=== PATIENT | female | born 1990 | race Caucasian/White ===

== ENCOUNTER 2018-06-24 10:40 | Outpatient (CLI) | payer BC, SELFPAY ==
[2018-06-24 11:52] LABS: Abs Immature Grans 0.01 k/cumm (0.0-0.09); Absolute Basophil Count 0.02 k/cumm (0.0-0.2); Absolute Eosinophil Count 0.09 k/cumm (0.0-0.7); Absolute Monocyte Count 0.53 k/cumm (0.11-0.7); Absolute Neutrophil Count 2.95 k/cumm (1.2-6.7); Basophils % 0.4; Eosinophils % 1.7; HCT 38.5 % (36.0-46.0); HGB 13.1 g/dL (12.0-15.5); Immature Grans % 0.2; Lymphocytes % 33.3; Mean Corpuscular Hemoglobin 31.4 pg (27.0-33.0); Mean Corpuscular Volume 92.3 fL (80-95); Mean Platelet Volume 10.8 fL (8.0-11.0); Monocytes % 9.8; Neutrophils % 54.6; Platelet Count 236 x1000/uL (130-400); RBC 4.17 m/cumm (4.00-5.20); RBC Distribution Width 12.8 % (11.7-14.6)
[2018-06-25 10:58] LABS: Rubella IgG Ab (UVM) Positive; Syphilis Serology (RPR) Negative (Negative)
[2018-06-25 12:01] LABS: HIV-1/2 Ag & Ab Screen Negative (NEGAT)
[2018-06-25 12:02] LABS: Hepatitis B Surface Ag Negative (NEGAT); Hepatitis C Ab w Rflx HCV PCR Negative (NEGAT)
== END 2018-06-24 10:41 ==
PROVIDERS: PCP Nurse Practitioner; Visit Provider Midwife
DX: Z34.01 Encounter for supervision of normal first pregnancy, first trimester (principal); Z11.59 Encounter for screening for other viral diseases; Z11.4 Encounter for screening for human immunodeficiency virus [HIV]
CPT/HCPCS: 36415; 80055; 86803; 86850; 86900; 86901; 87340; 87389; 84443; 85025; 86592; 86762

== ENCOUNTER 2018-06-24 13:00 | Outpatient (REF) | payer BC, SELFPAY ==
[2018-06-24 13:52] LABS: *AMPHETAMINES SCREEN URINE Negative (Negative); *BARBITURATES SCREEN URINE Negative (Negative); *BENZODIAZEPINES SCREEN URINE Negative (Negative); Cannabinoids THC Negative (Negative); Cocaine Screen,Urine Negative (Negative); METHADONE URINE SCREEN Negative (Negative); OPIATES URINE SCREEN Negative (Negative)
[2018-06-24 13:57] LABS: Tricyclic Antidepressants Negative (Negative)
[2018-06-25 14:38] LABS: Chlamydia Result Negative; GC Result Negative; Specimen Description CERVIX
[2018-06-28 15:40] LABS: Buprenorphine Negative; Norbuprenorphine Negative
== END 2018-06-24 13:01 ==
LOC: LBN 13:00
PROVIDERS: PCP Nurse Practitioner; Visit Provider Midwife
DX: Z34.01 Encounter for supervision of normal first pregnancy, first trimester (principal); Z11.3 Encounter for screening for infections with a predominantly sexual mode of transmission
CPT/HCPCS: 80307; 87491; 87591; 87086

== ENCOUNTER 2018-07-08 10:15 | Outpatient (CLI) | payer BC, SELFPAY ==
[2018-07-08 10:43] LABS: Kit/Specimen SENT
[2018-07-08 13:04] LABS: FREE T4 0.93 ng/dL (0.76-1.46)
== END 2018-07-08 10:16 ==
PROVIDERS: Midwife; PCP Nurse Practitioner; Visit Provider Advanced Practice Midwife
DX: Z34.01 Encounter for supervision of normal first pregnancy, first trimester (principal); Z36.89 Encounter for other specified antenatal screening
CPT/HCPCS: 36415; 84439

== ENCOUNTER 2018-07-09 04:22 | Emergency (ER) | payer BC, SELFPAY ==
[2018-07-09 04:27] VITALS: BP 139/83; PULSE 86; RESP 16; TEMP 37.1; O2SAT 100
--- NOTE | 2018-07-09 04:44 | ED.GENADUL ---
Disposition Clinical Impression: Vaginal bleeding during Disposition: HOME Condition: Stable Instructions: First Trimester Vaginal Bleed (ED) Additional Instructions: call your therapeutic strategy lead's office today to discuss when they want to follow up with you if you have difficulty breathing, fevers, severe abdominal pain return to the emergency department Medical Decision Making - Medical Decision Making Pt here with vaginal bleeding that is mild and not causing any evidence of hd instability, no tachycardia or symptoms to suggest anemia so do not feel cbc indicated. Has live iup, could be threated . 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 She denies fevers, chills, chest pain, sob, abd pain, n/v. She has a live iup on bedside abdominal u/s with fhr of 140. Complaint: vaginal bleeding Onset/Timin -: hour(s) Improves with: none Worsens with: none - Related Data Cholecalciferol (Vitamin D3) [Vitamin D3] 1,000 unit PO DAILY 01/22/18 Docosahexanoic Acid [Dha] 100 mg PO DAILY 01/22/18 Multivitamins W-Ca,Fe [Prenavite] 1 each PO DAILY 01/22/18 Levothyroxine [Levothroid] 50 mcg PO DAILY 30 Days #30 tab-cap 06/26/18 Allergies Allergy/AdvReac Type Severity Reaction Status Date / Time No Known Drug Allergies Allergy Unverified 06/24/18 09:08 Review of Systems Constitutional: denies: fever Respiratory: denies: shortness of breath Cardiovascular: denies: chest pain Musculoskeletal: denies: back pain Skin: denies: rash Comment: All other systems reviewed and negative Past Medical History - Past Medical History Medical history: no medical history - Social History Alcohol use: none Drug use: none General Exam - General Limitations: no limitations General appearance: alert, in no apparent distress - Head Head exam: Present: atraumatic - Eye Eye exam: Present: normal apperance - ENT ENT exam: Present: mucous membranes moist - Neck Neck exam: Present: normal inspection - Respiratory Respiratory exam: Absent: respiratory distress - Cardiovascular Cardiovascular Exam: Present: regular rate - GI/Abdominal GI/Abdominal exam: Present: soft. Absent: tenderness - Extremities Exam Extremities exam: Present: normal inspection - Back Exam Back exam: Present: normal inspection - Neurological Exam Neurological exam: Present: alert, oriented X3 - Psychiatric Psychiatric exam: Present: normal affect - Skin Skin exam: Present: warm Course Vital Signs - 24 hr 07/09/18 04:27 Temperature 98.8 F Pulse 86 Respiratory 16 Rate Blood Pressure 139/83 Pulse Oximetry 100
--- NOTE | 2018-07-09 04:47 | ED.GENADUL_ITS ---
Disposition Clinical Impression: Vaginal bleeding during Disposition: HOME Condition: Stable Instructions: First Trimester Vaginal Bleed (ED) Additional Instructions: call your conservation assistant's office today to discuss when they want to follow up with you if you have difficulty breathing, fevers, severe abdominal pain return to the emergency department Medical Decision Making - Medical Decision Making Pt here with vaginal bleeding that is mild and not causing any evidence of hd instability, no tachycardia or symptoms to suggest anemia so do not feel cbc indicated. Has live iup, could be threated . 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 She denies fevers, chills, chest pain, sob, abd pain , n/v. She has a live iup on bedside abdominal u/s with fhr of 140. Complaint: vaginal bleeding Onset/Timin -: hour(s) Improves with: none Worsens with: none - Related Data Cholecalciferol (Vitamin D3) [Vitamin D3] 1,000 unit PO DAILY 01/22/18 Docosahexanoic Acid [Dha] 100 mg PO DAILY 01/22/18 Multivitamins W-Ca,Fe [Prenavite] 1 each PO DAILY 01/22/18 Levothyroxine [Levothroid] 50 mcg PO DAILY 30 Days #30 tab-cap 06/26/18 Allergies Allergy/AdvReac Type Severity Reaction Status Date / Time No Known Drug Allergies Allergy Unverified 06/24/18 09:08 Review of Systems Constitutional: denies: fever Respiratory: denies: shortness of breath Cardiovascular: denies: chest pain Musculoskeletal: denies: back pain Skin: denies: rash Comment: All other systems reviewed and negative Past Medical History - Past Medical History Medical history: no medical history - Social History Alcohol use: none Drug use: none General Exam - General Limitations: no limitations General appearance: alert, in no apparent distress - Head Head exam: Present: atraumatic - Eye Eye exam: Present: normal apperance - ENT ENT exam: Present: mucous membranes moist - Neck Neck exam: Present: normal inspection - Respiratory Respiratory exam: Absent: respiratory distress - Cardiovascular Cardiovascular Exam: Present: regular rate - GI/Abdominal GI/Abdominal exam: Present: soft. Absent: tenderness - Extremities Exam Extremities exam: Present: normal inspection - Back Exam Back exam: Present: normal inspection - Neurological Exam Neurological exam: Present: alert, oriented X3 - Psychiatric Psychiatric exam: Present: normal affect - Skin Skin exam: Present: warm Course Vital Signs - 24 hr 07/09/18 04:27 Temperature 98.8 F Pulse 86 Respiratory 16 Rate Blood Pressure 139/83 Pulse Oximetry 100
[2018-07-09 05:52] VITALS: BP 118/72; PULSE 70; RESP 16; TEMP 37.2; O2SAT 99
== END 2018-07-09 06:04 | disposition home or self-care (01) ==
PROVIDERS: Emergency Provider Emergency Medicine; PCP Nurse Practitioner
DX: O20.9 Hemorrhage in early pregnancy, unspecified (principal); Z3A.11 11 weeks gestation of pregnancy
CPT/HCPCS: 86850; 90384; 96372; 99284; J2790

== ENCOUNTER 2018-07-09 13:39 | Outpatient (CLI) | payer BC, SELFPAY ==
--- NOTE | 2018-07-09 13:38 | DI.REPORT_ITS ---
SYMPTOMS/DIAGNOSIS: VAGINAL BLEEDING, O46.90, PRIMIGRAVIDA 1ST TRIMESTER, Z34.01, ? PREVIA, ? ABRUPTION OBSTETRICAL ULTRASOUND: Many abnormalities cannot be diagnosed. A normal exam does not exclude a congenital anomaly. Radiology No. [id number] LMP: Exam Date: 07/09/18 [facility] wks days on EDC ([facility]) 01/23/19 Confirmed: HISTORY: ---- PREDICTED GESTATIONAL AGE NUMBER 11+5 weeks with a range of week to weeks. 1 Determined by___1STUS___LMP_X__HISTORY PLACENTA PRESENTATION Grade 0 Cephalic___ Anterior_X__Posterior___ Breech____ Right Left__X Transverse(head right___ Fundal___Low-lying___Previa_X__ Transverse(head left___ Varying__X____ BIOMETRY AMNIOTIC FLUID BPD: mm weeks Normal HC: mm weeks AC: mm weeks FL: mm weeks AMNIOTIC FLUID INDEX >26 WK CRL: 54 mm 12+0 weeks Cisterna Magna: mm CI: RUQ: LUQ Cerebellum: cm EFW: grams Percentile RLQ: LLQ Total: cms Composite AGE= 12+0 wks EDC by US: 01/21/19 BIOPHYSICAL PROFILE ANATOMY IDENTIFIED SCORE 0/2 Heart: 4-Chamber___Rate:BPM 160 LVOT: RVOT: Amniotic Fluid(>2cms)____ Stomach: Kidneys: Respirations (>30 secs) Bladder: Post. Fossa: Body Flex/Extension 3 vessel cord: Ventricles: cord insertion: Lips:____ Extremity Flex/Extension spinal morphology: Nose: Total Score= Palate: NS=not seen COMMENTS: There is a single living intrauterine gestation. Estimated sonographic age is 12 weeks. heart rate is 160 beats per minute. The placenta appears anterior and appears to lie at the margins of the internal os. There does not appear to be a complete previa. There are no findings of hemorrhage. IMPRESSION: Single living intrauterine gestation. Estimated sonographic age is 12 weeks. There does appear to be a marginal placental location. Evaluation of the placental location should be considered at the patient's second trimester ultrasound. The findings were discussed with Lin Wiggins on the date of the examination.
== END 2018-07-09 13:40 ==
PROVIDERS: PCP Nurse Practitioner; Visit Provider Advanced Practice Midwife
DX: O46.91 Antepartum hemorrhage, unspecified, first trimester (principal); Z34.01 Encounter for supervision of normal first pregnancy, first trimester
CPT/HCPCS: 76817

== ENCOUNTER 2018-08-26 00:35 | Outpatient (CLI) | payer BC, SELFPAY ==
--- NOTE | 2018-08-26 10:00 | DI.US_ITS ---
SYMPTOMS/DIAGNOSIS: SURVEY, , Z34.90 OB ULTRASOUND: OB ultrasound was performed utilizing second trimester protocol. There is a single fetus. biometry is consistent with a gestational age of 18 weeks 5 days and an EDC of 01/22/19. The placenta is anterior and low lying but there is no placenta previa. The lower margin of the placenta is about 1.3 cm from the internal os. No placental abnormality seen. The anomaly screen is within normal limits as per the attached checklist. There is a normal quantity of amniotic fluid. Many abnormalities cannot be diagnosed. A normal exam does not exclude a congenital anomaly. Radiology No. [id number] LMP: Exam Date: 08/26/18 [facility] wks days on EDC ([facility]) Confirmed: HISTORY: survey ---- PREDICTED GESTATIONAL AGE NUMBER 18+4 weeks with a range of 17+4 weeks to 19+4 weeks. 1 Determined by 1STUS X LMP___HISTORY Info. pertaining to fetus # PLACENTA PRESENTATION Grade I Cephalic___ Anterior X Posterior___ Breech X Right Left Transverse(head right___ Fundal___Low-lying X Previa___ Transverse(head left___ Varying BIOMETRY AMNIOTIC FLUID BPD: 42 mm 18+5 weeks Normal HC: 159 mm 18+5 weeks AC: 134 mm 18+6 weeks FL: 28 mm 18+4 weeks AMNIOTIC FLUID INDEX >26 WK CRL: mm weeks Cisterna Magna: 2.4 mm CI: 79 RUQ: LUQ Cerebellum: 1.85 cm EFW: 255 grams Percentile 56% RLQ: LLQ 0#, 9oz Total: cms Composite AGE= 18+5 wks EDC by US 01/22/19 BIOPHYSICAL PROFILE ANATOMY IDENTIFIED SCORE 0/2 Heart: 4-Chamber X Rate: 153 BPM LVOT: X RVOT: X Amniotic Fluid(>2cms)____ Stomach: X Kidneys: X Respirations (>30 secs) Bladder: X Post. Fossa: X Body Flex/Extension 3 vessel cord: X Ventricles: X cord insertion: X Lips: X Extremity Flex/Extension spinal morphology: X Nose: X Total Score= Palate: X NS=not seen
[2018-08-26 14:57] LABS: TSH (W/Ref FT4) 3.24 uIU/mL (0.358-3.74)
== END 2018-08-26 00:55 ==
PROVIDERS: Advanced Practice Midwife; PCP Nurse Practitioner; Visit Provider Advanced Practice Midwife
DX: Z34.92 Encounter for supervision of normal pregnancy, unspecified, second trimester (principal)
CPT/HCPCS: 76805; 84443

== ENCOUNTER 2018-10-21 07:43 | Outpatient (CLI) | payer BC, SELFPAY ==
[2018-10-21 08:14] LABS: HCT 37.7 % (36.0-46.0); HGB 13.2 g/dL (12.0-15.5); Mean Corpuscular Volume 91.5 fL (80-95); Mean Platelet Volume 10.9 fL (8.0-11.0); Platelet Count 222 x1000/uL (130-400); RBC 4.12 m/cumm (4.00-5.20); RBC Distribution Width 12.1 % (11.7-14.6); White Blood Cell Count 7.38 k/cumm (4.4-10.8)
[2018-10-21 08:16] LABS: Glucose,1 Hr (Glucola) 132 mg/dL (80-140)
[2018-10-21 09:02] LABS: TSH (W/Ref FT4) 1.69 uIU/mL (0.358-3.74)
== END 2018-10-21 08:03 ==
PROVIDERS: Nurse Practitioner; PCP Nurse Practitioner; Visit Provider Advanced Practice Midwife
DX: Z34.93 Encounter for supervision of normal pregnancy, unspecified, third trimester (principal); Z01.84 Encounter for antibody response examination
CPT/HCPCS: 36415; 82950; 85027; 86850; 90384; 84443

== ENCOUNTER 2018-11-18 00:14 | Outpatient (CLI) | payer BC, SELFPAY ==
--- NOTE | 2018-11-18 10:57 | DI.US_ITS ---
Many abnormalities cannot be diagnosed. A normal exam does not exclude a congenital anomaly. Radiology No. LMP: Exam Date: 11/18/18 [facility] wks days on EDC ([facility]) 01/22/19 Confirmed: HISTORY: PLACENTAL LOCATION, F/U LOW LYING PLACENTA, Z34.90 PREDICTED GESTATIONAL AGE NUMBER 30.4 weeks with a range of week to weeks. 1 Determined by_X__1STUS___LMP___HISTORY Info. pertaining to fetus # PLACENTA PRESENTATION Grade I Cephalic__X_ Anterior__X_Posterior___ Breech____ Right Left Transverse(head right___ Fundal___Low-lying___Previa___ Transverse(head left___ Varying BIOMETRY AMNIOTIC FLUID BPD: mm weeks Normal HC: mm weeks Oligo Polyhydramnios AC: mm weeks FL: mm weeks AMNIOTIC FLUID INDEX >26 WK CRL: mm weeks Cisterna Magna: mm CI: RUQ: LUQ Cerebellum: cm EFW: grams Percentile RLQ: LLQ Total: cms Composite AGE= wks EDC by US BIOPHYSICAL PROFILE ANATOMY IDENTIFIED SCORE 0/2 Heart: 4-Chamber___Rate:BPM___135__ LVOT: RVOT: Amniotic Fluid(>2cms)____ Stomach: Kidneys: Respirations (>30 secs) Bladder: Post. Fossa: Body Flex/Extension 3 vessel cord: Ventricles: cord insertion: Lips:____ Extremity Flex/Extension spinal morphology: Nose: Total Score= Palate: NS=not seen Comparison is made with 08/26/18. There is a single intrauterine gestation in the cephalic presentation. heart rate is 135 beats per minute. dating and anatomy were not performed during this examination. The placenta is anterior without evidence of previa. The placenta tip is greater than 7.5 cm. from the internal os. IMPRESSION: No evidence of placenta previa or low lying placenta.
== END 2018-11-18 00:34 ==
PROVIDERS: PCP Nurse Practitioner; Visit Provider Advanced Practice Midwife
DX: Z34.93 Encounter for supervision of normal pregnancy, unspecified, third trimester (principal)
CPT/HCPCS: 76815

== ENCOUNTER 2018-11-24 16:20 | Observation (INO) | payer BC, SELFPAY ==
--- NOTE | 2018-11-24 18:35 | DI.US_ITS ---
SYMPTOM/DIAGNOSIS: DECREASED MOVEMENT. OB ULTRASOUND: Comparison is made with 18 Nov 2018. The fetus is in breech position. The biometric measurements correspond to 28 weeks, 2 days which is below the lower limit of normal. The estimated weight is 1117 grams which is below the lower limit of normal, below the first percentile. Amniotic fluid index appears normal at 8.3 The biometric physical profile is 6 of 8. No body movements were identified. Umbilical artery Doppler was performed. PS/ED 57/20 PI 2.34 SD ratio 2.89 RI 0.65. This is within the normal range. IMPRESSION: size and weight are below the normal range. Biophysical profile is 6 out of 8. Many abnormalities cannot be diagnosed. A normal exam does not exclude a congenital anomaly. Radiology No. [id number] LMP: Exam Date: 11/24/2018 [facility] wks days on EDC ([facility]) 01/22/19 Confirmed: HISTORY: BIOPHYSICAL PROFILE DECREASED MOVEMENT AND EFW. PREDICTED GESTATIONAL AGE NUMBER 31 +4 weeks with a range of 30 +4 week to 32 +4 weeks. 1 Determined by XX___1STUS___LMP___HISTORY Info. pertaining to fetus # PLACENTA PRESENTATION Grade II Cephalic___ Anterior__X_Posterior___ Breech__X__ Right Left Transverse(head right___ Fundal___Low-lying X___Previa___ Transverse(head left___ Varying BIOMETRY AMNIOTIC FLUID BPD: 71 mm 28 +4 weeks Normal HC: 267 mm 29 weeks AC: 222 mm 26 +5 weeks FL: 54 mm 28 +5 weeks AMNIOTIC FLUID INDEX >26 WK CRL: -- mm -- weeks Cisterna Magna: -- mm CI: 80 RUQ:_3.4 LUQ____0.9____ Cerebellum: -- cm EFW: 1117 grams <1% Percentile RLQ:__1.3____LLQ__2.6 Total:___8.3__cms Composite AGE= 28 +2 wks EDC by US__02/14/19 BIOPHYSICAL PROFILE ANATOMY IDENTIFIED SCORE 0/2 Heart: 4-Chamber___Rate:BPM LVOT: RVOT: Amniotic Fluid(>2cms)____2/2 Stomach: Kidneys: Respirations (>30 secs)___2/2__ Bladder: Post. Fossa: Body Flex/Extension__0/2____ 3 vessel cord: Ventricles: cord insertion: Lips:____ Extremity Flex/Extension_ 2/3 spinal morphology: Nose: Total Score= 6/8 Palate: NS=not seen
[2018-11-24] MEDS: Betamet Acet/Betamet Na Ph Inj. 30 MG/5 ML 12 MG IM (20:00)
== END 2018-11-24 20:15 | disposition home or self-care (01) ==
LOC: OBS 18:27
PROVIDERS: Admitting Provider Nurse Practitioner; PCP Nurse Practitioner; Visit Provider Nurse Practitioner
DX: O60.03 Preterm labor without delivery, third trimester (principal); Z3A.31 31 weeks gestation of pregnancy
CPT/HCPCS: 76815; 59025; 76819; G0378; J0702

== ENCOUNTER 2018-11-25 09:07 | Outpatient (CLI) | payer BC, SELFPAY ==
[2018-11-25] MEDS: Betamet Acet/Betamet Na Ph Inj. 30 MG/5 ML 12 MG IM (19:14)
== END 2018-11-25 09:27 ==
PROVIDERS: PCP Nurse Practitioner; Visit Provider Obstetrics & Gynecology
DX: O60.03 Preterm labor without delivery, third trimester (principal); Z3A.31 31 weeks gestation of pregnancy
CPT/HCPCS: 96372; J0702

== ENCOUNTER 2018-11-27 07:14 | Outpatient (CLI) | payer BC, SELFPAY ==
--- NOTE | 2018-11-27 11:08 | W.PM.HP.N ---
Date of service: 11/27/18 Time of Service: 11:08 Assessment and Plan (1) IUGR (intrauterine growth restriction): Current visit: Yes Status: Acute (2) Abnormal heart rate complicating : Current visit: Yes Status: Acute The tracing displayed minimal variability with periodic spontaneous decelerations. BPP returned 04/21. I [place] [facility] [place]. The patient has been counseled on the need for transport and consent was obtained. All questions were answered. She is s/p betamethasone x 2 on 11/24 and 11/25. History of Present Illness Chief Complaint: IUGR with non-reassuring NST Narrative: 28 year old @ 30.6 weeks presents for NST. She is known to have IUGR and did have normal dopplers over the weekend. She did received betamethasone at that time as well with doses on 11/24 and 11/25. Today her NST was non reactive with occassional spontaneous decelerations. BPP returned 04/21 today. NILAY was 7. The patient's medical history is significant for hypothyroidism for which she takes synthroid. She is otherwise healthy with no other medical problems. 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 pets and animals: Yes Smoking/Tobacco Use Status: Never alcohol intake: current alcohol intake frequency: holidays/special occasions only substance use type: does not use special geno needs: No seatbelt use: always helmet use: Yes drive intox or ride w/ intox 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 water heater temp set < 120 deg: Yes working smoke detector in home: Yes fire extinguisher in home: Yes carbon monox detector in home: Yes firearms in home: Yes firearms unloaded and locked: Yes do you feel safe at home: Yes victim of physical abuse: No victim of emotional abuse: No victim of sexual abuse: No History History 1 Para 0 Hx # Term Pregnancies 0 Multiple births 0 Hx # Pregnancies 0 Ectopic pregnancies 0 AB induced 0 Hx Number of Living Children 0 AB spontaneous 0 Meds Home Medications Medication Instructions Recorded Confirmed Type PNV cmb#95-ferrous fumarate-FA 1 ea PO DAILY 01/22/18 11/21/18 History [] cholecalciferol (vitamin D3) 1,000 unit PO DAILY 01/22/18 11/21/18 History [Vitamin D3] docosahexanoic acid 100 mg PO DAILY 01/22/18 11/21/18 History levothyroxine 75 mcg tablet 75 mcg PO DAILY #30 tab 11/06/18 11/21/18 Rx Allergies Allergy/AdvReac Type Severity Reaction Status Date / Time No Known Drug Allergies Allergy Unverified 11/21/18 10:40
--- NOTE | 2018-11-27 11:15 | HPE_ITS ---
Date of service: 11/27/18 Time of Service: 11:08 Assessment and Plan (1) IUGR (intrauterine growth restriction): Current visit: Yes Status: Acute (2) Abnormal heart rate complicating : Current visit: Yes Status: Acute The tracing displayed minimal variability with periodic spontaneous decelerations. BPP returned 04/21. I spoke with Dr. Lawton [place] [facility] [place] accepted the patient in transfer. The patient has been counseled on the need for transport and consent was obtained. All questions were answered. She is s/p betamethasone x 2 on 11/24 and 11/25. History of Present Illness Chief Complaint: IUGR with non-reassuring NST Narrative: 28 year old @ 30.6 weeks presents for NST. She is known to have IUGR and did have normal dopplers over the weekend. She did received betamethasone at that time as well with doses on 11/24 and 11/25. Today her NST was non reactive with occassional spontaneous decelerations. BPP returned 04/21 today. NILAY was 7. The patient's medical history is significant for hypothyroidism for which she takes synthroid. She is otherwise healthy with no other medical problems. 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 pets and animals: Yes Smoking/Tobacco Use Status: Never alcohol intake: current alcohol intake frequency: holidays/special occasions only substance use type: does not use special geno needs: No seatbelt use: always helmet use: Yes drive intox or ride w/ intox 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: No water heater temp set < 120 deg: Yes working smoke detector in home: Yes fire extinguisher in home: Yes carbon monox detector in home: Yes firearms in home: Yes firearms unloaded and locked: Yes do you feel safe at home: Yes victim of physical abuse: No victim of emotional abuse: No victim of sexual abuse: No History History 1 Para 0 Hx # Term Pregnancies 0 Multiple births 0 Hx # Pregnancies 0 Ectopic pregnancies 0 AB induced 0 Hx Number of Living Children 0 AB spontaneous 0 Meds Home Medications Medication Instructions Recorded Confirmed Type PNV cmb#95-ferrous fumarate-FA 1 ea PO DAILY 01/22/18 11/21/18 History [] cholecalciferol (vitamin D3) 1,000 unit PO DAILY 01/22/18 11/21/18 History [Vitamin D3] docosahexanoic acid 100 mg PO DAILY 01/22/18 11/21/18 History levothyroxine 75 mcg tablet 75 mcg PO DAILY #30 tab 11/06/18 11/21/18 Rx Allergies Allergy/AdvReac Type Severity Reaction Status Date / Time No Known Drug Allergies Allergy Unverified 11/21/18 10:40
== END 2018-11-27 11:28 | disposition short-term general hospital (02) ==
LOC: BCD 07:18
PROVIDERS: PCP Nurse Practitioner; Visit Provider Advanced Practice Midwife
DX: O36.5930 Maternal care for other known or suspected poor fetal growth, third trimester, not applicable or unspecified (principal); O41.03X0 Oligohydramnios, third trimester, not applicable or unspecified; Z3A.31 31 weeks gestation of pregnancy
CPT/HCPCS: 99223; 59025; 76819; G0378

== ENCOUNTER 2019-01-21 15:01 | Outpatient (REF) | payer BC, SELFPAY ==
--- NOTE | 2019-01-21 11:15 | PAPFT_PTH ---
PATIENT: Asha Ospina LOC: [facility] U#:[id number] AGE/SX: 28/F ROOM: RE01/21/[address]: Bneedicto Price RN : 1990 BED: DIS: 01/21/2019 SPEC #: [id number] RECD: 01/21/19 17:41 STATUS: BORIS REDwayne #: [id number] HAYLEY: 01/21/19 11:[address]: Benedicto Price DEPT: [facility] Cytology RECD BY: Sandy Alarcon ENTERED: 01/21/19 17:42 SP TYPE: PAPFT OTHR DR: Susan Alvarez Tissues: 1 - CX/ENDOCX FOR PAP SMEARS Procedures: PAP THIN PREP/UVM Screening HPV DNA PROBE Comments: [id number]
== END 2019-01-21 15:21 ==
LOC: LBN 15:01
PROVIDERS: PCP Nurse Practitioner; Visit Provider Advanced Practice Midwife
DX: Z12.4 Encounter for screening for malignant neoplasm of cervix (principal); Z11.51 Encounter for screening for human papillomavirus (HPV)
CPT/HCPCS: 88142; 87624

== ENCOUNTER 2019-10-16 10:03 | Outpatient (REF) | payer BC, SELFPAY ==
[2019-10-16 21:56] LABS: HCT 40.6 % (36.0-46.0); HGB 13.9 g/dL (12.0-15.5); Mean Corp. HGB Concentration 34.2 g/dL (32.0-36.0); Mean Corpuscular Hemoglobin 31.2 pg (27.0-33.0); Mean Corpuscular Volume 91.2 fL (80-95); Mean Platelet Volume 10.6 fL (8.0-11.0); Platelet Count 327 x1000/uL (130-400); RBC 4.45 m/cumm (4.00-5.20); RBC Distribution Width 12.4 % (11.7-14.6); White Blood Cell Count 7.01 k/cumm (4.4-10.8)
[2019-10-16 22:13] LABS: TSH (W/Ref FT4) 1.78 uIU/mL (0.36-3.74)
[2019-10-20 12:33] LABS: Thyroperoxidase Antibody >1300 U/mL (<=60)
== END 2019-10-16 10:23 ==
LOC: NCHCN 10:03
PROVIDERS: PCP Nurse Practitioner; Visit Provider Nurse Practitioner Family
DX: E03.9 Hypothyroidism, unspecified (principal)
CPT/HCPCS: 85027; 86376; 84443

== ENCOUNTER 2020-07-15 16:59 | Outpatient (REF) | payer BC, SELFPAY ==
[2020-07-15 21:21] LABS: TSH (W/Ref FT4) 1.84 uIU/mL (0.36-3.74)
== END 2020-07-15 17:19 ==
LOC: NCHCN 16:59
PROVIDERS: PCP Nurse Practitioner; Visit Provider Nurse Practitioner Family
DX: E03.9 Hypothyroidism, unspecified (principal)
CPT/HCPCS: 84443

== ENCOUNTER 2020-07-22 02:26 | Outpatient (CLI) | payer BC, SELFPAY ==
--- NOTE | 2020-07-22 | DI.US_ITS ---
EXAM: US BREAST LT LIMITED AND US BREAST RT LIMITED CLINICAL HISTORY: LT BREAST LUMP, N63.20, RT BREAST LUMP, N63.10 TECHNIQUE: Ultrasound left and right breast performed using standard protocol. FINDINGS: No solid or cystic masses, hypoechoic foci, areas of abnormal shadowing, or areas of skin thickening. IMPRESSION: No sonographically suspicious finding. A negative report should not preclude further investigation of a clinically suspicious palpable abnor mality. BI-RADS Cat 1 - Negative DATA REPOSITORY:
== END 2020-07-22 02:46 ==
PROVIDERS: PCP Nurse Practitioner Family; Visit Provider Nurse Practitioner Family
DX: N63.20 Unspecified lump in the left breast, unspecified quadrant (principal); N63.10 Unspecified lump in the right breast, unspecified quadrant
CPT/HCPCS: 76642

== ENCOUNTER 2020-08-11 10:35 | Outpatient (REF) | payer BC, SELFPAY ==
--- NOTE | 2020-08-11 08:45 | SKI_PTH ---
PATIENT: Asha Ospina LOC: [facility] U#:[id number] AGE/SX: 30/F ROOM: RE08/11/[address]: Ana Cortes : 1990 BED: DIS: 08/11/2020 SPEC #: [id number] RECD: 08/12/20 12:21 STATUS: BORIS RE #: [id number] HAYLEY: 08/11/20 08:[address]: Ana Cortes DEPT: Surgical Specimen RECD BY: Sandy Alarcon Tissues: 1 - SKIN BIOPSY(SHAVE/PUNCH) 2 - SKIN BIOPSY(SHAVE/PUNCH) Procedures: GROSS AND MICRO LEVEL 3 SKIN LEVEL 4 Comments: [id number]
== END 2020-08-11 10:55 ==
LOC: NCHCN 10:35
PROVIDERS: PCP Nurse Practitioner Family; Visit Provider Nurse Practitioner Family
DX: D22.61 Melanocytic nevi of right upper limb, including shoulder (principal); D22.5 Melanocytic nevi of trunk
CPT/HCPCS: 88304; 88305

== ENCOUNTER 2021-09-22 02:28 | Outpatient (CLI) | payer BC, SELFPAY ==
[2021-09-22 14:18] LABS: FREE T4 1.27 ng/dL (0.76-1.46); TSH 1.12 uIU/mL (0.36-3.74)
== END 2021-09-22 02:29 | disposition home or self-care (01) ==
LOC: LBO 02:28
PROVIDERS: PCP Nurse Practitioner Family; Visit Provider Internal Medicine Endocrinology, Diabetes & Metabolism
DX: E03.8 Other specified hypothyroidism (principal); E06.3 Autoimmune thyroiditis
CPT/HCPCS: 36415; 84439; 84443

== ENCOUNTER 2022-07-19 09:53 | Emergency (ER) | payer BC, SELFPAY ==
[2022-07-19 10:01] VITALS: BP 126/83; PULSE 90; RESP 16; TEMP 36.6; O2SAT 100
--- NOTE | 2022-07-19 10:15 | DI.RAD_ITS ---
Exam(s) XR FOOT RT COMPLETE EXAM: XR FOOT RT COMPLETE CLINICAL HISTORY: pain, direct trauma 500lb. TECHNIQUE: 2D digital imaging was performed of the right foot. Three images were obtained. AP, obl ique and lateral views were obtained. COMPARISON: No exams were available for comparison FINDINGS: BONES: There is an acute oblique fracture through the distal 3rd of the 1st metatarsal. There is ove rriding of the fracture fragments. There is a transverse fracture through the midshaft of the 2nd me tatarsal. There is 1/2 shaft's with displacement posteriorly of the distal fracture fragment. There is a nondisplaced fracture through the midshaft of the 3rd metatarsal. No bony destructive lesion i s seen. JOINTS: No dislocation present. SOFT TISSUE: There is soft tissue swelling of the foot. IMPRESSION: Acute fractures involving the 1st, 2nd and 3rd metatarsals as described with associated soft tissue s welling. DATA REPOSITORY: RADIATION DOSE DELIVERED:
--- NOTE | 2022-07-19 10:23 | ED.GENADUL_ITS ---
Discharge Plan Disposition Patient Disposition: HOME Condition: Serious Discharge Details Clinical Impression: Fracture of foot bone, right, closed Primary Care Provider: Ana Cortes ED Provider: Pa Wilde Home Meds and New Rx's Prescriptions: Continued cholecalciferol (vitamin D3) [Vitamin D3] 1,000 UNIT capsule 1,000 unit PO DAILY levothyroxine 75 mcg tablet 75 mcg PO DAILY Qty: 30 6RF No Action hydrocodone-acetaminophen 5-325 mg tablet 1 tab PO Q8H MDD 3 tabs PRN (Reason: pain) Qty: 10 0RF Discharge Instructions Instructions: Foot Fracture in Adults (ED) Additional Instructions: Please take acetaminophen (tylenol) - 650mg every 6 hours by mouth as needed for pain. Please take ibuprofen over the counter. Take 600mg by mouth every 6 hours as needed for pain. Please use orthopedic boot and crutches. No weightbearing on right foot. You may remove the boot and ice and elevate while nonambulatory. Please follow-up with orthopedics. Return to the emergency department immediately for any worsening or new concerning symptoms including increased pain, numbness/tingling or anything else concerning. Discharge Data Discharge Date/Time-TO BE ENTERED AT DEPARTURE: 07/19/22 12:26 Medical Decision Making 1026??32-year-old female here after direct trauma to her right dorsal foot with heavy farm equipment, she has significant swelling with hematoma of the dorsal foot that is tender. Distal sensation and motor intact. Concern for foot fracture. Plan to obtain x-ray. Ibuprofen and Tylenol as well as ice for pain. -- X-ray of the right foot was interpreted by radiology: IMPRESSION: Acute fractures involving the 1st, 2nd and 3rd metatarsals as described with associated soft tissue swelling.? I called and spoke with Dr. Belcher and discussed ED presentation and course, he reviewed x-ray, he recommends short orthopedic boot, crutches and outpatient follow-up. Patient was instructed to remain nonweightbearing and to follow-up with orthopedic clinic. Usual customary discharge instructions reviewed with the patient. HPI General Mode of arrival: wheelchair . Date/Time Provider Initiated Documentation: 07/19/22 10:11 . Limitations to Documentation: no limitations . Information obtained by: patient and family . HPI Narrative: 32-year-old female presents with chief complaint of right foot pain. Patient notes she accidentally dropped a 500+ pound piece of farm equipment onto her foot. This occurred just prior to arrival. Patient has severe pain in her foot that is worse with any palpation or attempted movement. She has associated swelling and bruising of the foot. She does she is able to feel and move her toes. No associated tingling. Patient states that her foot was entrapped for approximately 1 minute under equipment before could be moved. Related Data Home Medications Medication Instructions Recorded Confirmed cholecalciferol (vitamin D3) 25 1,000 unit PO DAILY 01/22/18 07/20/22 mcg (1,000 unit) capsule (Vitamin D3) levothyroxine 75 mcg tablet 75 mcg PO DAILY #30 tabs 04/10/19 07/20/22 hydrocodone 5 mg-acetaminophen 325 1 tab PO Q8H PRN pain #10 tabs 07/20/22 07/20/22 mg tablet Previous Rx's Medication Instructions Recorded levothyroxine 75 mcg tablet 75 mcg PO DAILY #30 tabs 04/10/19 hydrocodone 5 mg-acetaminophen 325 1 tab PO Q8H PRN pain #10 tabs 07/20/22 mg tablet Allergies Allergy/AdvReac Type Severity Reaction Status Date / Time No Known Drug Allergies Allergy Verified 07/20/22 13:11 dermabond Allergy Severe raised red Uncoded 07/20/22 13:11 rash General Stated Complaint: Orthopedic STEPHANIE: 4 Review of Systems Musculoskeletal Musculoskeletal: Reports as per HPI Neurologic Neurologic: Reports as per HPI [facility] All Active Problems (Updated 07/26/22 @ 18:42 by Micha Grimes MD) Fracture of first metatarsal bone of right foot (Acute) Fracture of foot bone, right, closed (Acute 07/19/22) First, second and third metatarsals Oral contraceptive use (Acute) Hypothyroid (Chronic) Depression (Chronic) Eczema (Chronic) Surgical History History of delivery Family History Maternal Grandmother Colon cancer Paternal Grandmother Stroke Social History Smoking/Tobacco Use Status: Former Tobacco Use Smoking risk assessment performed?: Yes Alcohol Intake: current Alcohol Intake frequency: holidays/special occasions only Drug use: Never Substance use type: does not use Adopted: No Foster care: No Household members: spouse 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 Pets and animals: Yes What type of physical activity do you participate in: normal ROM and activity Special geno needs: No Seatbelt use: always Helmet use: Yes Drive intox or ride w/intox route cdl driver: No Water heater temp set <120 deg: Yes Working smoke detector in home: Yes Fire extinguisher in home: Yes Carbon monox detector in home: Yes Firearms in home: Yes Firearms unloaded and locked: Yes Do you feel safe at home: Yes Do you feel safe in your relationship?: Yes Victim of physical abuse: No Victim of emotional abuse: No Victim of sexual abuse: No Female Reproductive History Menstrual control method: pills History History 1 Para 1 Hx # Term Pregnancies 0 Multiple births 0 Hx # Pregnancies 1 Ectopic pregnancies 0 AB induced 0 Hx Number of Living Children 1 AB spontaneous 0 Past Pregnancies Del. Date GA/Weeks # Preg Succ Route Wgt Sex Labor Lgth Anesth esia Location [facility] 11/27/18 32 No 1111.301 g Male [facility] Delivery Date: 11/27/18 Last Updated by: Mercedes Deutsch LPN Emergent c-sect.; IUGR; Gest. HTN; Baby had severe thrombocytopenia requiring transfusions Exam Const General: cooperative HENMT Mouth: moist mucous membranes Cardio Rate: regular rate and not tachycardic Rhythm: regular rhythm Skin Trauma: no lacerations Neuro General: patient alert and patient awake Other: Distal right foot sensation and motor intact Extrem Right lower extremity: foot Details: tenderness Location: of the dorsal foot, edema Location: of the dorsal foot, ecchymosis (Dorsal foot) and motor-sensory exam Details: light-touch normal Course Vital Signs Vital signs: Vital Signs Temperature 36.6 C 07/19/22 10:01 Pulse 90 07/19/22 10:01 Respiratory Rate 16 07/19/22 10:01 Blood Pressure 126/83 07/19/22 10:01 Pulse Oximetry 100 07/19/22 10:01 Temperature 36.6 C 07/19/22 10:01 Temperature Source Tympanic 07/19/22 10:01 Pulse 90 07/19/22 10:01 Respiratory Rate 16 07/19/22 10:01 Respiratory Effort Non-Labored 07/19/22 10:03 Blood Pressure 126/83 07/19/22 10:01 Blood Pressure Position Sitting 07/19/22 10:01 Pulse Oximetry 100 07/19/22 10:01 Oxygen Delivery Method Room Air 07/19/22 10:01 Oxygen Flow Rate 0 07/19/22 10:01 Pain Level 8 07/19/22 10:01 PAWSS Have you Been Recently Intoxicated or Drunk Within the Last 30 days?: No Have you Ever Experienced Previous Episodes of Alcohol Withdrawal?: No Have you ever Experienced Withdrawal Seizures?: No Have you ever Experienced Delirium Tremens(DT)s?: No Have you ever undergone Alcohol Rehabilitation Treatment (i.e, inpt ot outpatient treatment programs)?: No Have you ever Experienced Blackouts?: No Have you ever Combined Alcohol with other Downers within the last 90 days?: No Have you ever Combined Alcohol with any other Substance of Abuse during the last 90 days?: No Positive Blood Alcohol level on Presentation? [PCS.BAL]: No Evidence of Increased Autonomic Activity (i.e. HR>120, tremor, sweating, agitation, nausea)?: No Result: 0
[2022-07-19] MEDS: Acetaminophen 325 MG TAB 650 MG PO (10:24)
[2022-07-19] MEDS: Ibuprofen 600 MG TAB PO (10:24)
== END 2022-07-19 12:26 | disposition home or self-care (01) ==
PROVIDERS: Emergency Provider Student in an Organized Health Care Education/Training Program; PCP Nurse Practitioner Family
DX: S92.901A Unspecified fracture of right foot, initial encounter for closed fracture (principal); W20.8XXA Other cause of strike by thrown, projected or falling object, initial encounter; Z87.891 Personal history of nicotine dependence
CPT/HCPCS: 99283; 73630; 99284

== ENCOUNTER 2022-07-31 10:33 | Outpatient (CLI) | payer BC, SELFPAY ==
--- NOTE | 2022-07-31 09:30 | DI.RAD_ITS ---
Exam(s) XR FOOT RT COMPLETE EXAM: XR FOOT RT COMPLETE CLINICAL HISTORY: f/u metatarsal fractures. TECHNIQUE: 2D digital imaging was performed. Three views. COMPARISON: CR XR FOOT RT COMPLETE from 07/19/2022 FINDINGS: BONES: No change in alignment of fractures of the 1st through 3rd metatarsals.. No bony destructive lesion is seen. JOINTS: No dislocation present. SOFT TISSUE: Swelling over metatarsal region. IMPRESSION: No change in fractures of the 1st through 3rd metatarsals. DATA REPOSITORY: RADIATION DOSE DELIVERED:
== END 2022-07-31 10:34 | disposition home or self-care (01) ==
LOC: DIORS 10:34
PROVIDERS: PCP Nurse Practitioner Family; Referring Provider Nurse Practitioner Family; Visit Provider Student in an Organized Health Care Education/Training Program
DX: S92.311D Displaced fracture of first metatarsal bone, right foot, subsequent encounter for fracture with routine healing (principal); S92.321D Displaced fracture of second metatarsal bone, right foot, subsequent encounter for fracture with routine healing; S92.331D Displaced fracture of third metatarsal bone, right foot, subsequent encounter for fracture with routine healing; X58.XXXD Exposure to other specified factors, subsequent encounter
CPT/HCPCS: 73630

== ENCOUNTER 2022-08-02 10:26 | Day surgery (SDC) | payer BC, SELFPAY ==
--- NOTE | 2022-08-02 07:33 | PDOC.DSDIS_ITS ---
Discharge Plan Disposition Patient Disposition: HOME Condition: Good Discharge Details Reason For Visit: ORIF right first metatarsal Attending Provider: Micha Grimes Primary Care Provider: Ana Cortes Home Meds and New Rx's Prescriptions: New ibuprofen 600 mg tablet 600 mg PO TID Qty: 30 0RF acetaminophen 500 mg capsule 1,000 mg PO Q8H PRN PRNQty: 30 0RF hydrocodone-acetaminophen 5-325 mg tablet 1 tab PO Q6H PRNQty: 5 0RF Continued hydrocodone-acetaminophen 5-325 mg tablet 1 tab PO Q8H MDD 3 tabs PRN (Reason: pain) Qty: 10 0RF cholecalciferol (vitamin D3) [Vitamin D3] 1,000 UNIT capsule 1,000 unit PO DAILY Label Comments: seasonal winter use only levothyroxine 75 mcg tablet 75 mcg PO DAILY Qty: 30 6RF calcium citrate-vitamin D3 250 mg-5 mcg (200 unit) Tablet 1 tab PO DAILY ascorbic acid (vitamin C) 500 mg Capsule 500 mg PO DAILY No Action acetaminophen 325 mg Tablet 650 mg PO PRN PRN ibuprofen 200 mg Tablet 400 mg PO PRN PRN Discharge Instructions Additional Instructions: ORIF Discharge Instructions Activity: You are NON WEIGHT BEARING. You should keep the leg elevated as much as possible. Dressings: You should keep your splint clean and dry. Do NOT get wet or dirty. If you have issues with your splint, please call the office at [phone] or the hospital after hours. Medications: - You should take Tylenol and Ibuprofen around the clock for baseline pain. - You have been prescribed a stronger narcotic for breakthrough pain. Follow-up: 2 weeks Stand Alone Forms: Anesthesia Discharge Inst., Kole Vazquez ([facility]) Referrals: Micha Grimes MD [ [facility] STAFF PHYSICIAN] - Equipment/Supplies: Non-Weight Bearing Crutches Activity:: Activity as Tolerated Remove Dressings/Wound Care:: Do Not Remove Shower/Bathe:: 72 hours Diet:: As Tolerated Discharge Orders Discharge Orders: Discharge Order (Routine); Ordered 08/02/22 Ordered By: Mariah Pepper DS: Diagnosis Discharge Diagnosis (1) Fracture of first metatarsal bone of right foot: Status: Acute
[2022-08-02 10:32] VITALS: BP 126/79; PULSE 83; RESP 16; TEMP 37.2; O2SAT 100
[2022-08-02] MEDS: Celecoxib 200 MG CAP 400 MG PO (11:02)
--- NOTE | 2022-08-02 11:20 | W.ANESPRE ---
General Info Date of Service Date Performed: 08/02/22 Height: 5 ft 4 in Weight: 51.7 kg Body Mass Index (BMI): 19.5 Surgical Procedure: Operation Date: 08/02/22 12:55 Proposed Procedure Side Surgeon p ORIF 1st Metatarsal Right Micha Grimes MD Meds Allergies and Home Medications Allergies Allergy/AdvReac Type Severity Reaction Status Date / Time No Known Drug Allergies Allergy Verified 08/02/22 10:58 dermabond Allergy Severe raised red Uncoded 08/02/22 10:58 rash Home Medication Medication Instructions Recorded cholecalciferol (vitamin D3) 25 1,000 unit PO DAILY 01/22/18 mcg (1,000 unit) capsule (Vitamin D3) levothyroxine 75 mcg tablet 75 mcg PO DAILY #30 tabs 04/10/19 hydrocodone 5 mg-acetaminophen 325 1 tab PO Q8H PRN pain #10 tabs 07/20/22 mg tablet ascorbic acid (vitamin C) 500 mg 500 mg PO DAILY 08/01/22 capsule calcium citrate 250 mg 1 tab PO DAILY 08/01/22 calcium-vitamin D3 5 mcg (200 unit) tablet acetaminophen 325 mg tablet 650 mg PO PRN PRN 08/02/22 acetaminophen 500 mg capsule 1,000 mg PO Q8H PRN PRN #30 caps 08/02/22 hydrocodone 5 mg-acetaminophen 325 1 tab PO Q6H PRN #5 tabs 08/02/22 mg tablet ibuprofen 200 mg tablet 400 mg PO PRN PRN 08/02/22 ibuprofen 600 mg tablet 600 mg PO TID #30 tabs 08/02/22 Current Visit Medications: Current Medications Generic Name Dose Route Start Last Admin Trade Name Johannq PRN Reason Stop Dose Admin Acetaminophen 1,000 mg 08/02/22 06:00 Acetaminophen 500 Mg Tab PO PREOP LATRICIA Acetaminophen 650 mg 08/02/22 07:32 Acetaminophen 325 Mg Tab PO Q4H PRN PRN Celecoxib 400 mg 08/02/22 06:00 08/02/22 11:02 Celecoxib 200 Mg Cap PO 400 mg PREOP LATRICIA Administration Ringer's Solution 1,000 mls @ 80 mls/hr 08/02/22 06:00 IV 08/02/22 23:59 INFUSION LATRICIA Cefazolin Sodium/Dextrose 2 gm in 50 mls @ 100 mls/hr 08/02/22 06:00 Ancef Duplex IVPB 08/02/22 23:59 PREOP LATRICIA Ondansetron HCl 4 mg/ Sodium 52 mls @ 200 mls/hr 08/02/22 07:32 Chloride IVPB Q6H PRN PRN IV Miscellaneous Supplies 1 each 08/02/22 06:00 Iv Access IV 08/02/22 23:59 DIRECTED LATRICIA Oxycodone HCl 5 mg 08/02/22 07:32 Oxycodone 5 Mg Tab PO Q3H PRN PRN Pain Sodium Chloride 0 ml 08/02/22 06:00 Normal Saline Flush 10 Ml Syr IV 08/02/22 23:59 PRN PRN Sodium Chloride 0 ml 08/02/22 06:00 Normal Saline 10 Ml Vial IJ 08/02/22 23:59 DIRECTED PRN Sterile Water 0 ml 08/02/22 06:00 Water,Injection,Sterile 10 Ml Vial IJ 08/02/22 23:59 DIRECTED PRN PFSH Active Problems Active Problems: Problem Status Onset Code History of OCD (obsessive compulsive disorder) Depression Eczema Hypothyroid E03.9 Oral contraceptive use Z30.41 Fracture of foot bone, right, closed 07/19/22 S92.901A Fracture of first metatarsal bone of right foot S92.311A Surgical History Surgical History H/O wisdom tooth extraction History of delivery History of removal of nevus Tobacco Smoking/Tobacco Use Status: Former Tobacco Use Alcohol Alcohol Intake: current Alcohol intake frequency: holidays/special occasions only Substance Use Substance use: Never Substance use type: does not use Prental History History 1 Para 1 Hx # Term Pregnancies 0 Multiple births 0 Hx # Pregnancies 1 Ectopic pregnancies 0 AB induced 0 Hx Number of Living Children 1 AB spontaneous 0 Past Pregnancies Del. Date GA/Weeks # Preg Succ Route Wgt Sex Labor Lgth Anesthesia Location Prov Complic 11/27/18 32 No 1111.301 g Male [facility] Delivery Date: 11/27/18 Last Updated by: Mercedes Deutsch LPN Emergent c-sect.; IUGR; Gest. HTN; Baby had severe thrombocytopenia requiring transfusions Vital Signs and Lab Results Vital Signs Most Recent Vital Signs in EMR: Most Recent Vital Signs Temp Pulse Resp BP Pulse Ox 37.2 C 83 16 126/79 100 08/02/22 10:32 08/02/22 10:32 08/02/22 10:32 08/02/22 10:32 08/02/22 10:32 Lab Results Blood Type / Crossmatch: No Data to Display Complete Blood Count: No Data to Display Complete Metabolic Panel: No Data to Display Liver Function Panel: No Data to Display Coagulation Panel: No Data to Display Cardiac Panel: No Data to Display Arterial Blood Gas: No Data to Display Venous Blood Gas: No Data to Display Pancreas Panel: No Data to Display Thyroid Panel: No Data to Display Infectious Disease: No Data to Display Blood Cultures: No Data to Display Toxicology Panel: No Data to Display Panel: No Data to Display Anesthesia Assessment and Plan Anesthesia History Personal History: No History of Anesthesia Complications Family History: No Family History of Anesthesia Complications Exercise Tolerance Exercise Tolerance: Metabolic Equivalents>4 Pertinent Negatives Pertinent Negatives: No Symptoms of GERD, No Major Cardiovascular Symptoms or Complaints and No Major Pulmonary Symptoms or Complaints Cardiac & Pulmonary Exam Cardiac Exam: Normal S1/S2 Heart Sounds Pulmonary Exam: Clear Bilateral Breath Sounds Implantable Cardiac Device Does patient have a Pacemaker or an ICD?: No Airway Exam Known Difficult Airway: No Mallampati Class: 1 Mouth Opening: Normal (> 3cm) Thyromental Distance: Greater than 3 cm Neck Range of Motion: Full ROM Neck Circumference: Normal Teeth Condition: Normal Dentition ASA Classification ASA Score: ASA 2 Emergency Case?: No NPO Status NPO Status: NPO Clears >2 hours, Solids >8 hours Status Status: Negative HCG Anesthesia Plan Resuscitation Status: Full Code Anesthesia Technique: General Anesthesia Airway Planned: LMA Monitors Used: Standard Monitors
[2022-08-02 11:25] VITALS: BMI 19.5
[2022-08-02] MEDS: Lactated Ringers 1,000 ML 80 ML IV (11:40)
--- NOTE | 2022-08-02 11:45 | DI.RAD_ITS ---
Exam(s) XR FOOT RT LIMITED EXAM: XR FOOT RT LIMITED CLINICAL HISTORY: Fracture of first metatarsal bone of right foot. TECHNIQUE: 2D digital imaging was performed. COMPARISON: No exams were available for comparison FINDINGS: Fluoroscopy was provided during orthopedic procedure on right foot. See procedure report for details. Cumulative dose 0.237 IMPRESSION: DATA REPOSITORY: RADIATION DOSE DELIVERED:
[2022-08-02] MEDS: ceFAZolin 2 GM/50 ML BAG IVPB (12:18)
[2022-08-02] MEDS: Bupivacaine 0.5% Pres-Free W/EPI 30 ML VIAL (12:38)
[2022-08-02 13:42] VITALS: BP 127/56; PULSE 71; RESP 19; TEMP 36.3; O2SAT 98
[2022-08-02 13:47] VITALS: BP 106/57; PULSE 69; RESP 15; TEMP 36.3; O2SAT 100
[2022-08-02 13:52] VITALS: BP 115/62; PULSE 66; RESP 19; TEMP 36.3; O2SAT 100
[2022-08-02 14:09] VITALS: BP 128/92; PULSE 92; RESP 18; TEMP 36.5; O2SAT 100
--- NOTE | 2022-08-02 14:12 | W.ANESPOSTOP ---
Postoperative Evaluation Date, Time and Location Date Performed: 08/02/22 Time Performed: 14:13 Patient Location: PACU Vital Signs Most Recent Imported Vital Signs: Most Recent Vital Signs Temp Pulse Resp BP Pulse Ox 36.3 C L 66 19 115/62 100 08/02/22 13:52 08/02/22 13:52 08/02/22 13:52 08/02/22 13:52 08/02/22 13:52 Pain Score Most Recent Pain Score: Most Recent Pain Score Pain Level 0 08/02/22 13:52 Assessment Mental Status: Awake (Alert & Oriented to Patient Baseline) Airway and Respiratory Function: Patent airway with normal (patient baseline) respiratory exam Cardiovascular Function: Hemodynamically Stable Hydration Status: Adequately Hydrated Nausea & Vomiting: No Nausea or Vomiting Pain: Pt. Denies Any Pain Peripheral Nerve Block: Patient did not receive a nerve block
[2022-08-02] MEDS: oxyCODONE 5 MG TAB PO (14:22)
[2022-08-02 14:39] VITALS: BP 120/78; PULSE 73; RESP 18; TEMP 37; O2SAT 100
--- NOTE | 2022-08-02 19:43 | ROE_ITS ---
Date of service: 08/02/22 Time of Service: 13:40 Operative Note Operative Note DATE OF PROCEDURE: 08/02/22 PRE-OP DIAGNOSIS: Left 1st Metatarsal Fracture, 2nd Metatarsal Fracture POST-OP DIAGNOSIS: same PROCEDURE: Open Reduction and Internal Fixation of Left 1st Metatarsal fracture, Closed reduction of 2nd metatarsal fracture SURGEON: Micha Grimes CRM SOLUTION ARCHITECT: Mariah Pepper ANESTHESIA TYPE: General:No Airway Refer to Anesthesia Record ESTIMATED BLOOD LOSS: 10 TOURNIQUET TIME: 0 COMPLICATIONS: None Patient was transported to: PACU Patient's condition: stable Implants: Synthes 2.7mm LC-DCP Plate Indications: Savana is a 32-year-old who had a crushing injury to her left foot suffering a displaced first and second metatarsal fracture. She was seen in the office and given the displaced nature of the fractures and her young age and active lifestyle she was indicated for operative fixation. I reviewed the technical features of the case. I discussed the risk of the case to include bleeding, infection, pain, stiffness, damage nerves and vessels, damage to muscle and tendons, malunion, nonunion, hardware prominence, hardware failure. Despite these risk, she elected to proceed. Findings: There was a fracture about the first metatarsal which was externally rotated and shortened. This was anatomically reduced and held with a lag screw, reinforced with a 2.7 mm LCDCP neutralization plate. The second metatarsal was able to be closed reduced with acceptable alignment. Procedure Description: Asha was greeted in the day surgery area. Her identity was confirmed the correct side was identified and marked. The consent was reviewed with the patient and signed. History and physical was updated. She was then taken to the operating room. A general anesthetic without airway was then administered and her right leg was placed onto a bone foam ramp. A nonsterile tourniquet was placed on the leg but not used for the case. The right foot was then prepped with ChloraPrep and draped in a standard fashion. Prophylactic antibiotics in the form of cefazolin were administered. A timeout was performed for safe surgery. The fracture sites were identified on the skin using fluoroscopy. The incision was then drawn over the dorsal medial aspect of the right foot for exposure and fixation of the first metatarsal. This proposed surgical site was first injected with 0.5% bupivacaine with epinephrine. After successful administration of local anesthetic a longitudinal incision was made overlying this area of the dorsal medial foot centered over the fracture. Incision was taken sharply the skin. Blunt dissection was carried out with a tenotomy scissor. There is notable soft tissue disruption seen over the dorsal aspect of the first metatarsal. Therefore, this window soft tissue disruption was utilized for further exposure of the fracture site. Working within the soft tissue plane and then extended approximately distally to fully expose the fracture site. The fracture was easily visible. Some distraction was applied to the fracture and early fibrous healing was removed. It was seen that the fracture was shortened and externally rotated. After distraction and removal of any early callus and fibrous tissue, the bone was distracted and reduced with the use of [place] and a bone clamp. Once anatomic reduction was obtained it was held with a clamp. X-ray confirmed appropriate positioning and direct visualization confirmed this as well. I then placed a lag screw by technique, across the fracture from dorsal to plantar. This was done using a 2.7 millimeter screw and was slightly countersunk. This had excellent fixation and the clamp was removed and the fracture was stable. I then placed a neutralization plate for further support of fracture. For strength I used a 2.7 mm LC?DCP plate. A 5 hole plate best fit this metatarsal. It was positioned over the dorsomedial surface of the first metatarsal just medial to the head of the previous screw. The plate was held in position and secured to the bone using cortical screws 1 on each side of the fracture. Once again, x-ray was obtained to ensure that the plate was probably positioned. I then placed a locking screw in the second hole on either side of the fracture in a bicortical fashion. The foot was manipulated and this showed no gapping or displacement of the fracture of the first metatarsal. The second metatarsal was then evaluated which showed improvement with his positioning. It was still slightly translated in a dorsal direction therefore, I manipulated the second metatarsal with direct pressure and some traction and was able to obtain near anatomic reduction with only slight translation. There was no significant angulation and therefore this was not opened nor secured with any plates or other hardware. The wound over the medial side the foot was then thoroughly irrigated. The deep tissues were injected with additional 0.5% bupivacaine with epinephrine. The fascia overlying the plate was closed with a 0 Vicryl. The soft tissues were closed with a 3-0 Vicryl. Skin was closed with a running 4-0 Monocryl. Steri- Strips were applied. The wound was dressed with Xeroform, 4 x 4's, conformer dressing. She was also placed into a posterior slab splint. At the end the case all counts are correct. She is transferred back to the PACU in a stable condition.
== END 2022-08-02 15:40 | disposition home or self-care (01) ==
PROVIDERS: PCP Nurse Practitioner Family; Visit Provider Student in an Organized Health Care Education/Training Program
PROC: (CPT 28485; principal; 2022-08-02 12:45)
DX: S92.311A Displaced fracture of first metatarsal bone, right foot, initial encounter for closed fracture (principal); E03.9 Hypothyroidism, unspecified; S92.322A Displaced fracture of second metatarsal bone, left foot, initial encounter for closed fracture; X58.XXXA Exposure to other specified factors, initial encounter
CPT/HCPCS: 28485; 28475; 73620; J0690; J1100; J1885; J2250; J2405; J2704

== ENCOUNTER 2022-08-14 10:13 | Outpatient (CLI) | payer BC, SELFPAY ==
--- NOTE | 2022-08-14 09:45 | DI.RAD_ITS ---
Exam(s) XR FOOT RT COMPLETE EXAM: XR FOOT RT COMPLETE INDICATION: f/u ORIF R 1st MT. COMPARISON: CR XR FOOT RT COMPLETE from 07/31/2022 XA XR FOOT RT LIMITED from 08/02/2022 TECHNIQUE: 2D digital imaging was performed. Three views. FINDINGS: A fixation plate is again noted along the 1st metatarsal for fracture fixation. There has been no ch nelda in the alignment. There has been no change in the alignment of the 2nd and 3rd metatarsal fract ures. Soft tissue swelling remains present. DATA REPOSITORY: RADIATION DOSE DELIVERED:
== END 2022-08-14 10:14 | disposition home or self-care (01) ==
LOC: DIORS 10:13
PROVIDERS: PCP Nurse Practitioner Family; Referring Provider Nurse Practitioner Family; Visit Provider Student in an Organized Health Care Education/Training Program
DX: S92.311D Displaced fracture of first metatarsal bone, right foot, subsequent encounter for fracture with routine healing (principal); S92.321D Displaced fracture of second metatarsal bone, right foot, subsequent encounter for fracture with routine healing; S92.331D Displaced fracture of third metatarsal bone, right foot, subsequent encounter for fracture with routine healing; W23.1XXD Caught, crushed, jammed, or pinched between stationary objects, subsequent encounter
CPT/HCPCS: 73630

== ENCOUNTER 2022-09-11 11:45 | Outpatient (CLI) | payer BC, SELFPAY ==
--- NOTE | 2022-09-11 11:00 | DI.RAD_ITS ---
Exam(s) XR FOOT RT COMPLETE EXAM: XR FOOT RT COMPLETE INDICATION: f/u R 1st MT ORIF. COMPARISON: XA XR FOOT RT LIMITED from 08/02/2022 CR XR FOOT RT COMPLETE from 08/14/2022 TECHNIQUE: 2D digital imaging was performed. Three views. FINDINGS: Has been no change in the alignment of the 2nd and 3rd metatarsal fractures. There has also been no change in the fixation plate across the 1st meta tarsal fracture. Soft tissue swelling remains prese nt around the metatarsal region. DATA REPOSITORY: RADIATION DOSE DELIVERED:
== END 2022-09-11 11:46 | disposition home or self-care (01) ==
LOC: DIORS 11:45
PROVIDERS: PCP Nurse Practitioner Family; Referring Provider Nurse Practitioner Family; Visit Provider Student in an Organized Health Care Education/Training Program
DX: S92.311D Displaced fracture of first metatarsal bone, right foot, subsequent encounter for fracture with routine healing (principal); S92.331D Displaced fracture of third metatarsal bone, right foot, subsequent encounter for fracture with routine healing; S92.321D Displaced fracture of second metatarsal bone, right foot, subsequent encounter for fracture with routine healing; X58.XXXD Exposure to other specified factors, subsequent encounter
CPT/HCPCS: 73630

== ENCOUNTER 2022-09-19 18:02 | Outpatient (REF) | payer BC, SELFPAY ==
[2022-09-19 15:17] LABS: FREE T4 1.29 ng/dL (0.76-1.46); TSH 0.77 uIU/mL (0.36-3.74)
== END 2022-09-19 18:03 | disposition home or self-care (01) ==
LOC: NCHCN 18:02
PROVIDERS: PCP Nurse Practitioner Family; Visit Provider Nurse Practitioner Family
DX: E03.9 Hypothyroidism, unspecified (principal)
CPT/HCPCS: 84439; 84443

== ENCOUNTER 2022-10-16 11:09 | Outpatient (CLI) | payer BC, SELFPAY ==
--- NOTE | 2022-10-16 10:45 | DI.RAD_ITS ---
Exam(s) XR FOOT RT COMPLETE EXAM: XR FOOT RT COMPLETE INDICATION: S/P ORIF 1ST METATARSAL R FOOT. COMPARISON: CR XR FOOT RT COMPLETE from 09/11/2022 TECHNIQUE: 2D digital imaging was performed. Three views. FINDINGS: There has been no change in the alignment of the hardware in the 1st metatarsal. The 1st through 3rd metatarsal fracture show increased healing when compared with the previous exam. No new abnormaliti es are seen. DATA REPOSITORY: RADIATION DOSE DELIVERED:
== END 2022-10-16 11:10 | disposition home or self-care (01) ==
LOC: DIORS 11:09
PROVIDERS: PCP Nurse Practitioner Family; Referring Provider Nurse Practitioner Family; Visit Provider Student in an Organized Health Care Education/Training Program
DX: S92.311D Displaced fracture of first metatarsal bone, right foot, subsequent encounter for fracture with routine healing (principal); S92.321D Displaced fracture of second metatarsal bone, right foot, subsequent encounter for fracture with routine healing; S92.331D Displaced fracture of third metatarsal bone, right foot, subsequent encounter for fracture with routine healing; W23.1XXD Caught, crushed, jammed, or pinched between stationary objects, subsequent encounter
CPT/HCPCS: 73630

== ENCOUNTER 2022-12-20 13:23 | Outpatient (REF) | payer BC, SELFPAY ==
[2022-12-20 21:28] LABS: FREE T4 1.21 ng/dL (0.76-1.46); TSH 0.79 uIU/mL (0.36-3.74)
[2022-12-21 18:25] LABS: T3,Free 4.1 pg/mL (2.8-5.3)
== END 2022-12-20 13:24 | disposition home or self-care (01) ==
LOC: NCHCN 13:23
PROVIDERS: PCP Nurse Practitioner Family; Visit Provider Nurse Practitioner Family
DX: E03.9 Hypothyroidism, unspecified (principal)
CPT/HCPCS: 84439; 84443; 84481

== ENCOUNTER 2023-07-23 09:23 | Outpatient (REF) | payer BC, SELFPAY ==
--- NOTE | 2023-07-23 09:10 | PAPFT_PTH ---
PATIENT: Asha Ospina LOC: [facility] U#:[id number] AGE/SX: 33/F ROOM: RE07/23/[address]: Rosy Quick NP : 1990 BED: DIS: 07/23/2023 SPEC #: [id number] RECD: 07/23/23 13:29 STATUS: BORIS REDwayne #: [id number] HAYLEY: 07/23/23 09:[address]: Rosy Quick NP DEPT: [facility] Cytology RECD BY: Sandy Alarcon ENTERED: 07/23/23 13:29 SP TYPE: PAPFT OTHR DR: Ana Cortes Tissues: 1 - CX/ENDOCX FOR PAP SMEARS Procedures: PAP THIN PREP/UVM Screening HPV DNA PROBE Comments: [id number]
== END 2023-07-23 09:24 | disposition home or self-care (01) ==
LOC: LBN 09:23
PROVIDERS: PCP Nurse Practitioner Family; Visit Provider Nurse Practitioner Women's Health
DX: Z12.4 Encounter for screening for malignant neoplasm of cervix (principal); Z11.51 Encounter for screening for human papillomavirus (HPV)
CPT/HCPCS: 88142; 87624

== ENCOUNTER 2023-07-23 16:10 | Outpatient (CLI) | payer BC, SELFPAY ==
[2023-07-23 10:21] LABS: TSH (W/Ref FT4) 1.76 uIU/mL (0.36-3.74)
== END 2023-07-23 16:11 | disposition home or self-care (01) ==
LOC: LBO 16:11
PROVIDERS: PCP Nurse Practitioner Family; Visit Provider Nurse Practitioner Women's Health
DX: E03.9 Hypothyroidism, unspecified (principal); R63.5 Abnormal weight gain
CPT/HCPCS: 36415; 84443

== ENCOUNTER 2023-12-21 13:29 | Outpatient (REF) | payer BC, SELFPAY ==
[2023-12-21 14:27] LABS: HCT 40.3 % (36.0-46.0); HGB 13.8 g/dL (11.2-15.7); MCH 30.4 pg (27.0-33.0); MCHC 34.2 % (32.0-36.0); MCV 89 fL (80-95); MPV 10.1 fL (8.0-11.0); Platelet Count 452 10^3/uL (130-400); RBC 4.54 10^6/uL (3.93-5.22); RDW 12.2 % (11.7-14.6); RDW-SD 39.5 fL; WBC 6.53 10^3/uL (4.4-10.8)
[2023-12-21 14:42] LABS: Iron 140 ug/dL (50-170); Total Iron Binding Capacity 358 ug/dL (250-450); Transferrin Sat 39 % (15-50)
[2023-12-21 14:59] LABS: Ferritin 93 ng/mL (8-252); TSH (W/Ref FT4) 0.43 uIU/mL (0.36-3.74)
[2023-12-26 02:53] LABS: Testosterone, Total 11 ng/dL (8-60)
== END 2023-12-21 13:30 | disposition home or self-care (01) ==
LOC: NCHCN 13:29
PROVIDERS: PCP Nurse Practitioner Family; Visit Provider Nurse Practitioner Family
DX: L65.9 Nonscarring hair loss, unspecified (principal)
CPT/HCPCS: 84403; 85027; 82728; 83540; 83550; 84443

== ENCOUNTER 2024-05-06 13:53 | Outpatient (REF) | payer BC, SELFPAY ==
--- NOTE | 2024-05-06 07:45 | SKI_PTH ---
PATIENT: Asha Ospina LOC: [facility] U#:[id number] AGE/SX: 34/F ROOM: RE05/06/[address]: Harmeet Zimmerman MD : 1990 BED: DIS: 05/06/2024 SPEC #: [id number] RECD: 05/06/24 13:54 STATUS: BORIS REQ #: [id number] HAYLEY: 05/06/24 07:[address]: Harmeet Zimmerman DEPT: Surgical Specimen RECD BY: Sandy Alarcon ENTERED: 05/06/24 13:55 SP TYPE: WON CARRILLO DR: Ana Cortes Tissues: 1 - SKIN BIOPSY(SHAVE/PUNCH) Procedures: SKIN LEVEL 4 Comments: [id number]
== END 2024-05-06 13:54 | disposition home or self-care (01) ==
LOC: LBN 13:53
PROVIDERS: PCP Nurse Practitioner Family; Visit Provider Otolaryngology
DX: L98.9 Disorder of the skin and subcutaneous tissue, unspecified (principal)
CPT/HCPCS: 88305

== ENCOUNTER 2024-09-24 13:39 | Outpatient (CLI) | payer BC, SELFPAY ==
--- OUTSIDE RECORDS SUMMARY | 2024-09-24 13:43 | XMS_ITS | Encounter Summary ---
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 Social History Tobacco Use Types Packs/Day Years Used Date Smoking Tobacco: Former Smokeless Tobacco: Never Alcohol Use Standard Drinks/Week Comments No 0 (1 standard drink = 0.6 oz pur e alcohol) Sex and Gender Information Value Date Recorded Sex Assigned at Not on file Gender Identity Not on file Sexual Orientation Not on file documented as of this encounter Plan of Treatment Not on file documented as of this encounter Visit Diagnoses Diagnosis Hypothyroidism due to Qina's thyroiditis documented in this encounter Care Teams Capital Equipment Specialist Relationship Specialty Start Date End Date Ana Cortes APRN [address] [place] [address] PCP - General Family Medicine 11/11/19 documented as of this encounter
--- OUTSIDE RECORDS SUMMARY | 2024-09-24 13:43 | XMS_ITS | Encounter Summary ---
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 Social History [...] on file documented as of this encounter Progress Notes * Yunier Mccann MD - 09/01/2021 11:00 AM EDT We are asked to see this 29 year old woman by INEZ Cortes to review diagnosis and management of hypothyroidism Ms Ospina was in good health but was surprised to learn she was hypothyroid when at 10 weeks with an elevated TSH 6.03 She was Treated with 75 mcg a day of levothyroxine and in Dec 2018 on replacement TSH was 0.64 From Oct 2019 1) Hashimotos hypothyroidism - Ms Martinez had an elevated TSH early in but no prior testing; she has subsequently had elevated TPO and Tg antibodies , consistent with Hashimotos thyroiditis. There is the possibility that she has enough residual thyroid tissue now when not in early to go without thyroid hormone, but the likelihood is that she ultimately needs replacement and is better off not going through a period of hypothyroid Symptoms. Her menses re more prolonged, which can be a sign of hypothyroidism and I offered that we could raise her dose to drive the TSH to 0.5-1.0 safely and see if this has an impact if they remain prolonged. Otherwise she appears to be wellreplaced at present and she chooses to just continue for now with another set of thyroid tests in 2months. I discussed the need to increase the dose should occur again - at present they are sorting out platelet issues that occurred at delivery and she is uncertain if she will conceive again. 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 Will renew prescription and get lab tests next week ([facility], sent) and see if any adjustm ent is needed. 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
--- OUTSIDE RECORDS SUMMARY | 2024-09-24 13:43 | XMS_ITS | Clinical Summary ---
Author Organization [facility] [place] [address] Care Team Providers Care Electrostatic Paint Operator Name Role Phone Ana Cortes INEZ Primary Care Provider [phone] Allergies Active Allergy Reactions Criticality Noted Date Comments Unclassified Drug Dermatitis Medium 01/02/2019 Dermabond Medications Medication Sig Dispensed Refills Start Date End Date Status cholecalciferol, Vitamin D3, (CHOLECALCIFEROL, VITAMIN D3,) 2,000 unit Capsule Take 1,000 Units by mouth. Active multivitamin (THERAGRAN) Tablet Take 1 tablet by mouth daily. Active norethindrone (MICRONOR) 0.35 mg Tablet 1 tablet daily. 10/06/2019 Active calcium/magnesium (CALCIUM AND MAGNESIUM ORAL) Take by mouth daily. Active levothyroxine (Synthroid) 75 mcg TabletIndications:Hypo thyroidism due to Qian's thyroiditis Take 1 tablet by mouth daily. 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 History of induced hypertension 2018 Resolved Problems Problem Noted Date Diagnosed Date Resolved Date Gestational hypertension, third trimester 11/30/2018 12/20/2018 affected by growth restriction 11/27/2018 12/20/2018 Immunizations Name Administration Dates Next Due Influenza PF, Split 08/21/2018 Influenza Quadrivalent, Preservative Free 2018 Tdap (Adacel, Boostrix) 11/21/2018 Social History Tobacco Use Types Packs/Day Years Used Date Smoking Tobacco: Former Smokeless Tobacco: Never Tobacco Cessation:Counseling Given: No Alcohol Use Standard Drinks/Week Comments No 0 (1 standard drink = 0.6 oz pur e alcohol) Sex and Gender Information Value Date Recorded Sex Assigned at Not on file Gender Identity Not on file Sexual Orientation Not on file Last Filed Vital Signs Vital Sign Reading Time Taken Comments Blood Pressure 116/70 11/11/2019 10:21 AM EST Pulse 77 11/11/2019 10:21 AM EST Temperature 36.7 ??C (98.1 ??F) 01/02/2019 2:58 PM ES T Respiratory Rate 18 12/04/2018 11:38 AM EST Oxygen Saturation 100% 01/02/2019 2:58 PM EST Inhaled Oxygen Concentration - - Weight 54.6 kg (120 lb 6.4 oz) 11/11/2019 10:21 AM EST Height 162.6 cm (5' 4) 11/11/2019 10:21 AM EST Body Mass Index 20.67 11/11/2019 10:21 AM EST Plan of Treatment Health Maintenance Due Date Last Done Comments HIV screen 02/19/2006 Hepatitis C Screening 02/19/2006 Hepatitis B vaccine (0-59 yrs) (1) 02/19/2007 HPV test 02/19/2018 PAP Smear 02/19/2018 Covid-19 Vaccine ( - season) 2024 Influenza (Flu) vaccine (1 o f 1 - Influenza standard series) 07/13/2024 09/15/2019, 08/21/2018 Tetanus/Diphtheria/Pertussis Vaccines (2 - Td or Tdap) 11/21/2028 11/21/2018 Advance Directives * Full Code (Latest Code Status on File) Date Activated Date Inactivated Comments 11/27/2018 5:17 PM 11/30/2018 1:54 PM Question Answer Comments Does patient have capacity to make decision: Yes Care Teams Electrostatic Paint Operator Relationship Specialty Start Date End Date Ana Cortes APRN [address] [place] [address] PCP - General Family Medicine 11/11/19
--- OUTSIDE RECORDS SUMMARY | 2024-09-24 13:43 | XMS_ITS | Encounter Summary ---
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
--- OUTSIDE RECORDS SUMMARY | 2024-09-24 13:43 | XMS_ITS | Encounter Summary ---
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 Social History [...] on file documented as of this encounter Miscellaneous Notes * Telephone Encounter - Vandana Bob RN - 03/18/2021 9:29 AM EDT Med Requested: Levothyroxine 75mcg daily CLARE: 11.11.2019 NOV: on recall list for 2 yr f/u Last refill: 1.4.21 Last TSH in 10/2019 documented in this encounter Plan of Treatment Not on file documented as of this encounter Visit Diagnoses Diagnosis 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
--- OUTSIDE RECORDS SUMMARY | 2024-09-24 13:43 | XMS_ITS | Encounter Summary ---
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
--- OUTSIDE RECORDS SUMMARY | 2024-09-24 13:43 | XMS_ITS | Encounter Summary ---
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 Social History [...] encounter Miscellaneous Notes * Telephone Encounter - Jacquelin Weston LPN - 05/20/2020 11:37 AM EDT Rx refill request: Levothyroxine 75 mcg tablet Last office visit: 11/11/2019 Labs: 12/23/2018 Last refill: 11/11/2019 Jacquelin weston LPN documented in this encounter Plan of Treatment Not on file documented as of this encounter Visit Diagnoses Diagnosis 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
--- OUTSIDE RECORDS SUMMARY | 2024-09-24 13:44 | XMS_ITS | Encounter Summary ---
[place] [address] Care Team Providers Care Apprentice/Lineman Name Role Phone Ana Cortes APRN Primary Care Provider [phone] Reason for Visit * Consultation (Routine) - Specialty Diagnoses / Procedures Referred By Contjesús t Referred To Contact Endocrinology Diagnoses Hypothyroidism, unspecified Ana Cortes APRN [address] [place] [address] [facility] Endocrinology [address] [place] [id number] Referral ID Status Reason Start Date Expiration Date V isits Requested Visits Authorized [id number] Consult, [facility] PCP Updated and/or Approved 10/24/2019 10/23/2020 12 12 Encounter Details Date Type Department Care Team (Latest Contact Info) Description 11/11/2019 10:30 AM EST Office Visit [place] [phone] Yunier Mccann MD [facility] [place] [address] 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 Social History [...] on file documented as of this encounter Last Filed Vital Signs Vital Sign Reading Time Taken Comments Blood Pressure 116/70 11/11/2019 10:21 AM EST Pulse 77 11/11/2019 10:21 AM EST Temperature - - Respiratory Rate - - Oxygen Saturation - - Inhaled Oxygen Concentration - - Weight 54.6 kg (120 lb 6.4 oz) 11/11/2019 10:21 AM EST Height 162.6 cm (5' 4) 11/11/2019 10:21 AM EST Body Mass Index 20.67 11/11/2019 10:21 AM EST documented in this encounter Progress Notes * Yunier Mccann MD - 11/11/2019 10:30 AM EST We are asked to see this 29 year old woman by INEZ Cortes to review diagnosis and management of hypothyroidism Ms Ospina was in good health but was surprised to learn she was hypothyroid when at 10 weeks with an elevated TSH 6.03 She was Treated with 75 mcg a day of levothyroxine and in Dec 2018 on replacement TSH was 0.64 The baby's delivery was complicated and her son (nicky) had a high TSH and is under care with Dr Flores for hypothyroidism- no hearing or developmental issues + FH Gm's both had graves , aunt has hashimotos She feels well- never had symptoms Weight returned to normal Had been breast feeding, has stopped and menses have resumed but are more prolonged than in the past (but has had only two -three menses since she stopped breast feeding PMH 1) eczema 2) hypothyroidism 3) past depression 4) 5) C section Allergies dermabond glue Non smoking No etoh No hepatitis risk FH - DM2 - early cad + colon cancer (gm) - breast cancer SH and 1 year old 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 Pleasant healthy youthful woman Eyes: Full eom, no stare, no lid lag Thyroid: normal size and texture, not enlarged, not especially firm Neuro: reflexes had one beat of clonus No tremor Recent thyroid tests TSH 1.78 + anti TPO 1) Hashimotos hypothyroidism - Ms Martinez had [...] is uncertain if she will conceive again. RTC prn - we can monitor her with thyroid tests in 2 mo and then every 6 months unless her health status changes. 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
--- OUTSIDE RECORDS SUMMARY | 2024-09-24 13:44 | XMS_ITS | Encounter Summary ---
Author Organization [facility] [place] [address] Care Team Providers Care Product Communications Manager Name Role Phone Susan Alvarez APRN Primary Care Provider + Encounter Details Date Type Department Care Team (Latest Contact Info) Description 01/04/2019 Encounter Social History Tobacco Use Types Packs/Day Years Used Date Smoking Tobacco: Former Smokeless Tobacco: Never Alcohol Use Standard Drinks/Week Comments No 0 (1 standard drink = 0.6 oz pur e alcohol) Sex and Gender Information Value Date Recorded Sex Assigned at Not on file Gender Identity Not on file Sexual Orientation Not on file documented as of this encounter Miscellaneous Notes * Note - Tamera Phillips RN - 01/04/2019 6:14 PM EST This note was copied from a baby's chart. I touched base with this mother today. Per mom the baby is still latching at times and appears to be transferring milk, but a recent post weight only showed a 5 gram weight gain. Mom was asking if it was possible to try the small nipple shield vs the x small to see if it will make a difference. This may help with transfer as the xs is a tight fit on mom's nipple. is available on Sunday to continue to support sessions. documented in this encounter Plan of Treatment Not on file documented as of this encounter Visit Diagnoses Not on filedocumented in this encounter Care Teams Product Communications Manager Relationship Specialty Start Date End Date Susan Alvarez APRN [address] [place] [address] PCP - General Family Medicine 07/16/18 11/10/19 documented as of this encounter
--- OUTSIDE RECORDS SUMMARY | 2024-09-24 13:44 | XMS_ITS | Encounter Summary ---
[place] [address] Care Team Providers Care Master Baker Name Role Phone Susan Alvarez APRN Primary Care Provider + Reason for Visit * Reason Onset Date Comments Post-op Problem 01/02/2019 Encounter Details Date Type Department Care Team (Late st Contact Info) Description 01/02/2019 Telephone Obstetrics [place] [phone] Diana Jones RN Post-op Problem Social History Tobacco Use Types Packs/Day Years [...] encounter Miscellaneous Notes * Telephone Encounter - Diana Jones RN - 01/02/2019 8:20 AM EST Asha is concerned about her incision. She is now 5 weeks post op but where the glue was covering it came off and then she had some clear fluid come out of the incision. It also seems more red to herthan previously. She does not have a fever. Assessment: post op incision problem Plan. She will come this afternoon @ 3pm for an incision check. documented in this encounter Plan of Treatment Not on file documented as of this encounter Visit Diagnoses Not on filedocumented in this encounter Care Teams Master Baker Relationship Specialty Start Date End Date Susan Alvarez APRN [address] [place] [address] PCP - General Family Medicine 07/16/18 11/10/19 documented as of this encounter
--- OUTSIDE RECORDS SUMMARY | 2024-09-24 13:44 | XMS_ITS | Encounter Summary ---
Author Organization [facility] [place] [address] Care Team Providers Care Mining Manager Name Role Phone Susan Alvarez APRN Primary Care Provider + Encounter Details Date Type Department Care Team (Latest Contact Info) Description 01/08/2019 Encounter Social History Tobacco Use Types Packs/Day [...] this encounter Miscellaneous Notes * Note - Kami Woody RN - 01/08/2019 2:30 PM EST This note was copied from a baby's chart. Checked in with Asha first thing this morning. She says she was able to get Carl to latch in laid back position last night for his 2000 feeding. She felt like he did about the same as he did in the morning. Then he continued with this pattern for three feeds in a row. Was given 30cc supplements as he transferred 15cc when we did pre and post feeding weights yesterday. And he even had an eye exam this morning. Discussed evaluating weight gain tonight. Also discussed with Asha that any time she felt like hisenergy was improved, she could think about him taking a second bottle at night. Discussed doing another pre/post feeding weight either tomorrow or Sunday. Huge progress with oral feeds. Slowing the flow with the bottle and at breast (laid back position) allows him to self- pace, and therefore be more successful with milk transfer. Asha is very happy with this progress. She will continue to stay at the hotel at night for now. Shared this progress with the team at rounds. Kami Woody RN, IBCLC [facility] documented in this encounter Plan of Treatment Not on file documented as of this encounter Visit Diagnoses Not on filedocumented in this encounter Care Teams Mining Manager Relationship Specialty Start Date End Date Susan Alvarez APRN [address] [place] [address] PCP - General Family Medicine 07/16/18 11/10/19 documented as of this encounter
--- OUTSIDE RECORDS SUMMARY | 2024-09-24 13:44 | XMS_ITS | Encounter Summary ---
Author Organization [facility] [place] [address] Care Team Providers Care Leasing Consultant Name Role Phone Susan Alvarez APRN Primary Care Provider + Encounter Details Date Type Department Care Team (Latest Contact Info) Description 12/31/2018 Encounter Social History Tobacco Use Types Packs/Day [...] * Note - Kami Woody RN - 12/31/2018 12:00 PM EST This note was copied from a baby's chart. ORAL MOTOR EXAMINATION Oral Motor Examination/Function: Mouth: Normal Small Jaw: Normal Slightly receding Lips: Normal Gums: Not assessed Tongue: Extends just to lips Frenulum: Not assessed Palate: Not assessed Observation: Position: Cross Cradle then Clutch/Football Rooting: Normal Attachment: Adequate With XS nipple shield though needs to be held snuggly. Tends to tongue thrust nipple shield out. Milk Ejection Reflex: Prior to Attachment Swallow: Normal/Coordination Suck:Swallow Ratio: A few heard Sucking Burst Pattern: immature transferred 5cc in 15 minutes of active suckling Maternal Considerations : excellent milk supply. Nipples are large but able to fit into XS nipple shield On-going Concerns: Premature infant post menstrual age: Risk for feeding difficulties Monitor infant growth and nutrition closely Recommendations: Breast visits and practice as cues for readiness Frequent skin to skin contact and Kangaroo-Mother care Breastfeed as infant cues for readiness, but at least every 2-3 hours, awaken infant as needed Pump frequently at least 8-10 times per 24 hours after infant feeds and record in pumping log Kami WoodyRN, IBCLC [facility] documented in this encounter Plan of Treatment Not on file documented as of this encounter Visit Diagnoses Not on filedocumented in this encounter Care Teams Leasing Consultant Relationship Specialty Start Date End Date Susan Alvarez APRN [address] [place] [address] PCP - General Family Medicine 07/16/18 11/10/19 documented as of this encounter
--- OUTSIDE RECORDS SUMMARY | 2024-09-24 13:44 | XMS_ITS | Encounter Summary ---
[place] [address] Care Team Providers Care General Sales Manager Name Role Phone Susan Alvarez APRN Primary Care Provider + Reason for Visit * Auth/Cert Specialty Diagnoses / Procedures Referred By Contac t Referred To Contact Diagnoses affected by growth restriction IUGR Procedures DELIVERY Referral ID Status Reason Start Date Expiration Date Visits Re quested Visits Authorized [id number] 1 1 Encounter Details Date Type Department Care Team (Late st Contact Info) Description 11/27/2018 4:04 PM EST [place] [id number] Shyam Duran MD [facility] [place] [address] Asha Alas MD [facility] [place] [address] Anesthesia Record Procedure Summary Procedure Name Responsible Anesthesiologist Anesthesia Start Time Anesthesia Stop Time @ DELIVERY (WRVU 16.13) (Bilateral: Abdomen) Shyam Druan MD 11/27/18 1604 11/27/18 1708 Events Date Time Event Comment 11/27/2018 1604 AN Verify 1604 Start 1604 An Start Data 1611 Spinal 1611 L Uterine Displacement 1617 Anesthesia Ready 1622 Skin Incision 1628 Uterine Incision 1631 Baby Delivered 1634 Handoff Intra-procedure anesthesia care was transferred after review of the patient's history, current anesthetic/surgical status and plan, according to the ANES Provider Handoff Checklist. 1646 1657 an stop data 1702 Recovery or ICU Handoff Maria Guadalupe ent care was transferred to the destination unit staff after review of the patient's medical history, current anesthetic/surgical status and plan, according to the Provider Handoff Checklist. 1708 Stop Meds Name Total Ketorolac 15 mg Ondansetron 4 mg PHENYLephrine INF 600 mcg Oxytocin INF 20 mL Oxytocin INF 291.67 mL Morphine 0.15 mg fentaNYL 15 mcg BUpivacaine 0.75% with Dextrose 12 mg ceFAZolin (ANCEF) 2g in dextrose 5% 100 mL 2 g magnesium sulfate 20 g/500 mL infusion 0 .83 g Lactated Ringers 1,500 mL * Agents Name O2 Air N2O O2 Auxiliary Flowmeter 1 * Blood No blood administrations on file. Lines, Drains, and Airways Type Details Placement Removal (RETIRED By SPR20) Incision 11/27/18; 1631 11/27/18 1631 by Anya Juarez, RN (RETIRED) Peripheral IV Line - Single Lumen 11/27/18; 1000; metacarpal vein (top of hand), right; [id number] catheter system; 20 gauge; 11/30/18; 0929 11/27/18 1000 by Ximena Thomason RN 11/30/18 0929 by Nunu Lawson, RT Urethral Catheter 11/27/18; 1623; Abdominal surgery; Acute urinary retention; indwelling double lumen catheter; 100% silicone; 14; inserted at this facility; 1; 10; 10; none; drainage bag to dependent drainage; urethral catheter removed, tubing intact, per protocol/policy; 11/28/18; 1205 11/27/18 1623 by Ximena Mahoney, RN 11/28/18 1205 by Rajwinder Robison RN documented in this encounter Social History Tobacco Use Types Packs/Day Years Used Date Smoking Tobacco: Former Smokeless Tobacco: Never Alcohol Use Standard Drinks/Week Comments No 0 (1 standard drink = 0.6 oz pur e alcohol) Comments Yes Sex and Gender Information Value Date Recorded Sex Assigned at Not on file Gender Identity Not on file Sexual Orientation Not on file documented as of this encounter OR Notes * Anesthesia Postprocedure Evaluation - Asha Alas - 11/28/2018 8:58 AM EST [place] Department of Anesthesiology Post-procedure Note Patient: Asha Ospina Procedure Summary Date: 11/27/18 Room / Location: [facility] OR 1 / [facility] Anesthesia Start: 1604 Anesthesia Stop: 1708 Procedure: @ DELIVERY (WRVU 16.13) (Bilateral Abdomen) Diagnosis: Surgeon: Mey Rivera MD Responsible Provider: Shyam Duran MD Anesthesia Type: spinal ASA Status: 2 All Anesthesia Providers: Anesthesiologist: Shyam Duran MD; Errol Adame MD Gum Machine Operator: Bronson Lomeli MD; Asha Alas MD Most Recent Vitals: 11/28/18 0757 BP: (!) 142/91 Pulse: 62 Resp: Temp: 36.9 ??C (98.4 ??F) SpO2: Pain Patient Location: Floor Level of Consciousness: Awake and Alert Pain Management: Satisfactory Analgesia PONV: None Cardiovascular Status: At Baseline and Hemodynamically Stable Respiratory Status: At Baseline and Room Air Postoperative Fluid Status: Intravascular EUvolemia Possible Anesthetic Complications: NONE apparent at time of evaluation Final Primary Anesthesia Type: Spinal (The anesthetic type performed was the same as planned.) Comments: I have seen and examined Asha Ospina in the period following neuraxial anesthesia. Please see patient flow sheet for BP, HR, RR and O2 sat. The patient is normothermic and appears well hydrated. The patient's cardiorespiratory status is at baseline. The neuroaxial intervention site is clean and without redness, swelling or tenderness. The patient denies pain, neuropathy, significant weakness or headache. Her consciousness and sensory/motor function are at baseline. She is up and walking. She still has a jordan catheter with a plan to remove it later today. Will follow up voids. There are no apparent complications related to the anesthetic thepatient received. Overall, the patient expressed satisfaction with the anesthesia care she received. Please contact anesthesia for any questions or concerns. * Anesthesia Procedure Notes - Bronson Lomeli MD - 11/27/2018 4:25 PM EST Associated Order(s): Neuraxial (Operative Procedure/ APS) Procedure: Neuraxial Block Primary Anesthetic Type: Spinal The patient was greeted. The sedation plan, its benefits, risks and alternatives were discussed with the patient. The patient has consented to the procedure. The medical history and chart were reviewed. The timeout was performed. Start time: 11/27/2018 4:00 PM End time: 11/27/2018 4:15 PM Patient Location: Operating Room Patient Prep Position: Sitting Prep: Hand Hygiene, Mask, Sterile Gloves, Chlorhexidine and Patient Draped Injection technique: single-shot Skin Anesthetic Lidocaine 1% 5 ml Procedure Technique Level of needle insertion: L4-5 Needle approach: midline Needle Type: Sprotte Gauge: 25 Needle length: 3.5 in Number of attempts: 2 Medications: BUpivacaine 0.75% with Dextrose, 12 mg fentaNYL, 15 mcg Morphine, 0.15 mg Events/Notes Events: None Resident/CENTRIFUGAL CASTING MACHINE TENDER: Asha Alas MD Second Resident/CENTRIFUGAL CASTING MACHINE TENDER: Fellow: Attending Physician: Errol Adame MD ~~~~~~~~~~~~~~~~~~~~~~~~~~~~~~~~~~~~~~~~~~~~~~~~~~~~~~~~~~~~ * Anesthesia Preprocedure Evaluation - Errol Adame MD - 11/27/2018 3:46 PM EST Pre-Anesthesia Evaluation for: Asha Ospina a 28 y.o. female. Procedure(s): @ DELIVERY (WRVU 16.13) There are no active problems to display for this patient. No past medical history on file. History reviewed. No pertinent surgical history. Social History Tobacco Use ??? Smoking status: Former Smoker ??? Smokeless tobacco: Never Used Substance Use Topics ??? Alcohol use: No Frequency: Never Social History Substance and Sexual Activity Drug Use No No Known Allergies Medications: MAR and/or home medications have been reviewed. Physical Exam: Most Recent Vitals: 11/27/18 1459 BP: (!) 148/99 Pulse: 73 Resp: 18 Temp: 37 ??C (98.6 ??F) SpO2: Body mass index is 25.32 kg/m??. Height: 162.6 cm (5' 4) Weight: 66.9 kg (147 lb 7.8 oz) Airway Assessment: Mallampati: II TM distance: >3 FB Neck ROM: full Cardiovascular Assessment: cardiovascular exam normal Pulmonary Assessment: pulmonary exam normal Dental Assessment: - normal exam Misc Assessment: IV access: Peripheral line Anesthesia Plan: ASA 2 spinal, Pt interviewed and examined. Pt is a 28 y.o. female who is and 31w6d here for in setting of non-reassuring FHT. Medical history, medications, allergies, and social history reviewed, significant for IUGR, 1st trimester bleed (anterior placenta). Pending labs. No contraindication to a neuraxial technique. Consent obtained. Risk, benefits discussed; questions answered. Allergies/ADR: No Known Allergies Personal history of problems with anesthesia: tolerated GA in the past Family history of anesthesia problems: denies Bleeding Disorder: denies Asthma: denies HTN: denies Prior back surgeries/pathology: denies LE numbness/weakness: denies Discussed potential need for labor analgesia and/or anesthesia to possibly include epidural, spinal, CSE, and anesthesia for (which includes all of the above with the addition of general anesthesia). Answered all questions, consent obtained and placed in patient's chart. Region - Informed Consent: Anesthetic plan and risks discussed with patient. Plan discussed with resident. PAT Staff Note documented in this encounter Plan of Treatment Not on file documented as of this encounter Procedures Procedure Name Priority Date/Time Associated Diagnosis Comments ANE NEURAXIAL UPDATED Routine 11/27/2018 4:25 PM EST documented in this encounter Results * Neuraxial (Operative Procedure/ APS) (11/27/2018 4:25 PM EST) Narrative Errol Adame MD - 11/27/2018 4:25 PM EST Bronson Lomeli MD ? 11/27/2018 ??4:28 PM Procedure: ?? Neuraxial Block Primary Anesthetic Type: Spinal The patient was greeted. The sedation plan, its benefits, risks and alternatives were discussed with the patient. ??The patient has consented to the procedure. ??The medical history and chart were reviewed. ??The timeout was performed. Start time: 11/27/2018 4:00 PM End time: 11/27/2018 4:15 PM Patient Location: Operating Room Patient Prep Position: Sitting Prep: Hand Hygiene, Mask, Sterile Gloves, Chlorhexidine and Patient Draped Injection technique: single-shot Skin Anesthetic Lidocaine 1% ??5 ml Procedure Technique Level of needle insertion: L4-5 Needle approach: midline Needle Type: Sprotte Gauge: 25 Needle length: 3.5 in Number of attempts: 2 Medications: BUpivacaine 0.75% with Dextrose, 12 mg fentaNYL, 15 mcg Morphine, 0.15 mg Events/Notes Events: ??None Resident/CENTRIFUGAL CASTING MACHINE TENDER: ?Asha Alas MD Second Resident/CENTRIFUGAL CASTING MACHINE TENDER: Fellow: ? Attending Physician: ? Errol Adame MD ~~~~~~~~~~~~~~~~~~~~~~~~~~~~~~~~~~~~~~~~~~~~~~~~~~~~~~~~~~~~ Errol Adame MD EMT [facility] documented in this encounter Visit Diagnoses Not on filedocumented in this encounter Administered Medications Inactive Administered Medications - up to 3 most recent administrations Medication Order MAR Action Action Date Dose Rate Site BUpivacaine 0.75% in dextrose 8.25% (intrathecal) (SENSORCAINE) 0.75 % (7.5 mg/mL) injection Intrathecal, Starting on Sun11/27/18 at 1625, Until Sun11/27/18 at 1625, Anesthesia Intra-op, Routine Given 11/27/2018 4:25 PM EST 12 mg ceFAZolin (ANCEF) 2g in dextrose 5% 100 mL 2 g, Intravenous, ONCE, 1 dose, On Sun11/27/18 at 1615, Administer over 30 Minutes, Indication for (Active or Suspected): Prophylaxis Given 11/27/2018 4:17 PM EST 2 g fentaNYL 50 mcg/mL multi-dose injection Intrathecal, Starting on Sun11/27/18 at 1625, Until Sun11/27/18 at 1625, Anesthesia Intra-op, Routine Given 11/27/2018 4:25 PM EST 15 mcg ketorolac (TORADOL) injection PRN, Starting on Sun11/27/18 at 1650, Until Sun11/27/18 at 1745, Anesthesia Intra-op, Routine Given 11/27/2018 4:50 PM EST 15 mg lactated Ringers infusion CONTINUOUS PRN, Starting on Sun11/27/18 at 1604, Until Sun11/27/18 at 1745, Anesthesia Intra-op New Bag 11/27/2018 4:04 PM EST magnesium sulfate 20 g/500 mL infusion 1 g/hr (25 mL/hr), Intravenous, CONTINUOUS, Starting on Sun11/27/18 at 1500, Until Jyotsna 11/28/18 at 0214, Routine Rate/Dose Change 11/27/2018 4:04 PM EST 1 g/hr 25 mL/hr New Bag 11/27/2018 3:28 PM EST 1 g/hr 25 mL/hr morphine (PF) (DURAMORPH) injection Intrathecal, Starting on Sun11/27/18 at 1625, Until Sun11/27/18 at 1625, Anesthesia Intra-op, Routine Given 11/27/2018 4:25 PM EST 0.15 mg ondansetron (ZOFRAN) injection PRN, Starting on Sun11/27/18 at 1619, Until Sun11/27/18 at 1745, Anesthesia Intra-op, Routine Given 11/27/2018 4:19 PM EST 4 mg oxytocin (PITOCIN) 30 units in sodium chloride 0.9% 500 mL infusion PRN, Starting on Sun11/27/18 at 1633, Until Sun11/27/18 at 1745, Anesthesia Intra-op, Routine Given 11/27/2018 4:33 PM EST 20 mLs oxytocin (PITOCIN) 30 units in sodium chloride 0.9% 500 mL infusion CONTINUOUS PRN, Starting on Sun11/27/18 at 1633, Until Sun11/27/18 at 1745, Anesthesia Intra-op, Routine New Bag 11/27/2018 4:33 PM EST 500 mL/hr 500 mL/hr PHENYLephrine (TOMMY-SYNEPHRINE) 20 mg in sodium chloride 250 mL (standard ADULT & Pedi greater than 20kg) infusion CONTINUOUS PRN, Starting on Sun11/27/18 at 1612, Until Sun11/27/18 at 1745, Anesthesia Intra-op, Routine New Bag 11/27/2018 4:12 PM EST 20 mcg/min 15 mL/hr documented in this encounter Care Teams General Sales Manager Relationship Specialty Start Date End Date Susan Alvarez APRN [address] [place] [address] PCP - General Family Medicine 07/16/18 11/10/19 documented as of this encounter
--- OUTSIDE RECORDS SUMMARY | 2024-09-24 13:44 | XMS_ITS | Encounter Summary ---
Author Organization [facility] [place] [facility] [place] [address] Care Team Providers Care Manager Integration Name Role Phone Ana Cortes APRN Primary Care Provider [phone] Reason for Visit * Reason Onset Date Comments Medication Refill 03/05/2019 Encounter Details Date Type Department Care Team (Late st Contact Info) Description 03/05/2019 Refill Obstetrics [place] [phone] Emanuel Lawton MD [facility] OBSTETRICS [place] [address] Social History Tobacco Use Types Packs/Day Years [...] on filedocumented in this encounter Care Teams Manager Integration Relationship Specialty Start Date End Date Ana Cortes APRN [address] [place] [address] PCP - General Family Medicine 11/11/19 documented as of this encounter
--- OUTSIDE RECORDS SUMMARY | 2024-09-24 13:44 | XMS_ITS | Encounter Summary ---
Author Organization [facility] [place] [address] Care Team Providers Care Pulmonary Function Technologist Name Role Phone Susan Alvarez APRN Primary Care Provider + Encounter Details Date Type Department Care Team (Latest Contact Info) Description 12/02/2018 Encounter Social History Tobacco Use Types Packs/Day [...] * Note - Kami Woody RN - 12/02/2018 4:30 PM EST This note was copied from a baby's chart. Mom asked to see with a few questions about pumping. She is now 5 days out and is obtaining 55-65cc per pumping taking one four hour break at night, sometimes a second 4 hour break. She is doing breast massage and hand expression with every pumping and is having very little engorgement discomfort. She is keeping track of her volumes in a pumping log, she has just been given a hospital grade pump. Carl came off CPAP today. They have been doing STS care multiple times a day. Continue to follow closely Kami Woody RN, IBCLC [facility] Services documented in this encounter Plan of Treatment Not on file documented as of this encounter Visit Diagnoses Not on filedocumented in this encounter Care Teams Pulmonary Function Technologist Relationship Specialty Start Date End Date Stressenger, Susan, MILK DELIVERY DRIVER [address] [place] [address] PCP - General Family Medicine 07/16/18 11/10/19 documented as of this encounter
--- OUTSIDE RECORDS SUMMARY | 2024-09-24 13:44 | XMS_ITS | Encounter Summary ---
Author [facility] [place] [address] Care Team Providers Care Bisque Cleaner Name Role Phone Susan Alvarez APRN Primary Care Provider + Reason for Visit * Reason Comments Care Encounter Details Date Type Department Care Team (Latest Contact Info) Description 12/04/2018 11:30 AM EST Clinical Support Obstetrics [place] [phone] Diana Jones RN Elevated blood pressure reading with diagnosis of hypertension Social History Tobacco Use Types Packs/Day Years [...] Sign Reading Time Taken Comments Blood Pressure 129/86 12/04/2018 11:38 AM EST Pulse 71 12/04/2018 11:38 AM EST Temperature - - Respiratory Rate 18 12/04/2018 11:38 AM EST Oxygen Saturation 97% 12/04/2018 11:38 AM EST Inhaled Oxygen Concentration - - Weight - - Height - - Body Mass Index - - documented in this encounter Progress Notes * Diana Jones RN - 12/04/2018 11:30 AM EST Asha delivered on 11/27/18 @ 31+6 weeks by primary c/s due to preeclampsia. She is now 8 days post op and presents for a blood pressure check. She reports feeling well, pain = 1. She continues to take tylenol/ibuprfen prn pain relief. She is pumping her breasts and reports her milk supply to be plentiful. Lochia is very light. Her incision check shows well approximated edges, healing well. Blood pressure today is 129/86, no medication for hypertension is taken. Signs and symptoms of depression reviewed and that she can call for concerning symptoms as she doeshave h/o depression and anxiety. Assessment: blood pressure remains elevated but not in severe range Plan: Given contact number for MFM clinic should she need to be seen again while her baby is in NICU. She will have MFM consult due to recent finding of HLA Platelet screen positive. documented in this encounter Plan of Treatment Not on file documented as of this encounter Visit Diagnoses Diagnosis Elevated blood pressure reading with diagnosis of hypertension documented in this encounter Care Teams Bisque Cleaner Relationship Specialty Start Date End Date Susan Alvarez APRN [address] [place] [address] PCP - General Family Medicine 07/16/18 11/10/19 documented as of this encounter
--- OUTSIDE RECORDS SUMMARY | 2024-09-24 13:44 | XMS_ITS | Encounter Summary ---
Author Organization [facility] [place] [address] Care Team Providers Care Adult Basic Education Manager Name Role Phone Susan Alvarez APRN Primary Care Provider + Encounter Details Date Type Department Care Team (Latest Contact Info) Description 12/27/2018 Encounter Social History Tobacco Use Types Packs/Day [...] * Note - Tamera Phillips RN - 12/27/2018 9:26 PM EST This note was copied from a baby's chart. I briefly worked with mom today. Mom has been doing breast visits. She has been most successful with the nipple shield. Today we worked a little bit on positioning and attempting without the shield. The baby is able to open wide enough to take in enough nipple, but he may not have the strength or suction to sustain a sucking pattern. He was mostly doing non nutritive sucking. Once a shield was in place he latched, but again did not sustain. I explained to mom a nipple shield will help a baby who needs support to sustain, but it will not help a sleepy baby to wake and breast feed. We worked on modified cross cradle. We discussed the alignment of the baby should be belly to bellyand nose to nipple with mom. I encouraged mom to hold the baby snuggly to her body and on the same plane as the breast with the support of pillows. I reviewed the concept of a deep latch with mom. We discussed that a deep latch is essential for adequate milk production, transfer and thus weight gain. I explained to mom the baby should have an asymmetrical latching taking in a larger part of the underside of the areola. Baby should approach thebreast chin first, the bottom lip to land flanged out further out onto the areola and then the mom moves the baby up and over the nipple. I pointed out both lips should be flanged out and the angle of the lips at ~ 140 degrees. A deep latch should feel like a pull or tug vs a pinch when the baby sucks. Mom will continue to offer per cues. is available as needed. documented in this encounter Plan of Treatment Not on file documented as of this encounter Visit Diagnoses Not on filedocumented in this encounter Care Teams Adult Basic Education Manager Relationship Specialty Start Date End Date Susan Alvarez APRN [address] [place] [address] PCP - General Family Medicine 07/16/18 11/10/19 documented as of this encounter
--- OUTSIDE RECORDS SUMMARY | 2024-09-24 13:44 | XMS_ITS | Encounter Summary ---
Author Organization [facility] [place] [address] Care Team Providers Care Environmental Health Safety Engineer Name Role Phone Susan Alvarez APRN Primary Care Provider + Reason for Visit * Reason Comments Non-stress Test * Auth/Cert Specialty Diagnoses / Procedures Referred By Contac t Referred To Contact Diagnoses affected by growth restriction IUGR Procedures DELIVERY Referral ID Status Reason Start Date Expiration Date Visits Re quested Visits Authorized [id number] 1 1 Encounter Details Date Type Department Care Team (Late st Contact Info) Description 11/27/2018 3:59 PM EST - 11/27/2018 6:05 PM [place] [id number] Addison Rivera MD [facility] [place] [address] @ DELIVERY (WRVU 16.13) Social History Tobacco Use Types Packs/Day Years [...] Sign Reading Time Taken Comments Blood Pressure 144/78 11/27/2018 6:02 PM EST Pulse 68 11/27/2018 6:02 PM EST Temperature 36.4 ??C (97.5 ??F) 11/27/2018 5:03 PM ES T Respiratory Rate 18 11/27/2018 2:59 PM EST Oxygen Saturation 99% 11/27/2018 3:46 PM EST Inhaled Oxygen Concentration - - Weight 66.9 kg (147 lb 7.8 oz) 11/27/2018 1:43 P M EST Height 162.6 cm (5' 4) 11/27/2018 1:43 PM EST Body Mass Index 25.32 11/27/2018 1:43 PM EST documented in this encounter Discharge Summaries * Shelly Gauthier - 11/30/2018 11:47 AM EST Images from the original note were not included. Discharge Summary Patient Name: Asha Ospina Patient Age: 28 y.o. Language: Icelandic Race: White Ethnicity: Not nor Admit date: 11/27/2018 Discharge date and time: 11/30/2018 Attending Physician: Moira Yang MD Discharge Physician: Moira Yang MD Care Provider: Maggie Davison, [facility] Referring Hospital: [facility] Follow-up Recommendations for Providers: - BP check on POD#7 - 6 week visit Inpatient Provider Contact Information: [facility] Department, Discharge Diagnoses (Hospital Problems) and Secondary Diagnoses (Chronic Problems) Active Hospital Problems Diagnosis ??? affected by growth restriction Resolved Hospital Problems No resolved problems to display. Active Non-Hospital Problems Diagnosis ??? Gestational hypertension, third trimester Operations/Major Procedures: 11/27/2018: Primary low transverse section Indication for Admission: growth restriction History of Presentation: Asha Ospina is a 28 y.o. at 31w6d gestation being admitted for surveillance for growth restriction. ?? HPI: Patient presents in transport from [facility] for surveillance. She received a course of betamethasone on 11/24 and 11/25. She presented today for a appointment, found to have non-reactive NST with decelerations and BPP 6/10. She was transferred for further evaluation. ?? Her has been complicated by: 1. growth restriction 2. Hypothyroidism - levothyroxine 75 mcg 3. Rh negative - received Rhogam at 28 weeks gestation ?? Denies any history of hypertension, asthma, diabetes. Hospital Course Including Delivery and Events Asha Ospina is a 28 y.o. woman at 31w6d gestational age admitted in transport from an outside hospital for evaluation of non-reassuring status with BPP 6/10. The patient received a course of betamethasone. Decision was made to proceed with a primary section secondary to non-reassuring status, repeat BPP 6/10. complicated by growth restriction and breech presentation. She received a spinal for analgesia. ?? Patient underwent uncomplicated primary low transverse section. Viable male infant. APGARSof 6 and 8. Weight of 1130g. Cord blood was taken and cord gases were obtained. Blood loss estimated at 500ccs. Please see op note for further details. course was significant for elevated blood pressures. She had pre- eclampsia labs which were within normal limits. Blood pressures did not require antihypertensives. Otherwise, her course was uneventful. She was discharged home on POD#3 with pain controlled with oral pain medications, tolerating a regular diet, ambulating and voiding without difficulty, her fundal exam was as expected and her lochia was within normal limits. She is establishing breast feeding and will be followed up on POD#7 for a blood pressure check in the [facility] office and was recommended to have a 6 weekpostpartum visit in our office or with her care provider. She was planning on using progesterone only pills for contraception but considering other options as well. Due to her post-operative pain the patient was given a prescription for oxycodone (fifteen 5 mg tablets) to take only for breakthrough pain not responsive to acetaminophen and ibuprofen. She was counseled regarding the dangers of these medications including sedation which would impair her ability to drive safely. The potential for addiction with continued use of narcotic was discussed and the need to stop use as soon as possible. It was recommended that she promptly destroy unused medication ortake them back to drop box locations. The opioid risk assessment was done, opioid informed consent reviewed and signed by patient, PDMP query completed. Discharge instructions discussing the risk of opioids are included in her discharge instructions which are printed and given to the patient at discharge. Delivery Information Information for the patient's : Ebony Ospina [[id number]] INFORMATION Ebony Ospina 11/27/2018 4:31 PM by Lower Segment Transverse Sex: male Gestational Age: 31w6d [place] Measurements: Weight: 2 lb 7.9 oz (1130 g) APGARS One Minute Five Minutes Ten Minutes Totals: 6 8 EBL: 500 mL Vital signs at Discharge: BP: 110/70, Heart Rate: 76, Temp: 36.7 ??C (98.1 ??F), Resp: 18, BMI (Calculated): 25.31 Height: 162.6 cm (5' 4) (11/27/18 1343) Weight: 66.9 kg (147 lb 7.8 oz) (11/27/18 1343) Functional and Cognitive status: Intact, at baseline Important Studies and Lab Data: Labs: Recent Results (from the past 72 hour(s)) Hemogram Result Value Ref Range WBC 17.4 (H) 4.0 - 9.5 x10(3)/mcL RBC 3.91 (L) 4.00 - 5.21 x10(6)/mcL Hemoglobin 12.4 11.7 - 15.5 gm/dL Hematocrit 35.3 (L) 35.7 - 45.8 % MCV 90.3 82.6 - 94.4 fL MCH 31.7 27.1 - 32.0 pg MCHC 35.1 (H) 31.7 - 35.0 gm/dL Platelets 245 145 - 357 x10(3)/mcL RDWSD 39.9 37.0 - 46.0 fL RDWCV 12.1 11.5 - 14.1 % MPV 10.9 7.6 - 12.9 fL nRBC % Auto 0.0 % nRBC Abs Auto 0.000 0.000 - 0.000 x10(3)/mcL Differential, Automated Result Value Ref Range Neutrophils % 75.0 % Neutr Abs (ANC) 13.00 (H) 1.70 - 6.10 x10(3)/mcL Lymphocytes % 15.5 % Lymphocytes Abs 2.7 0.9 - 3.2 x10(3)/mcL Monocytes % 8.3 % Monocyte Abs 1.4 (H) 0.3 - 0.9 x10(3)/mcL Eosinophils % 0.2 % Eosinophils Abs 0.0 0.0 - 0.4 x10(3)/mcL Basophils % 0.2 % Basophils Abs 0.0 0.0 - 0.1 x10(3)/mcL Immature Gran % 0.80 % Lizet Gran Abs 0.14 (H) 0.00 - 0.04 x10(3)/mcL Lavender Tube HOLD Result Value Ref Range Lavender Hold Sample in lab. Studies: No studies Pending Studies and Lab Data: Final placenta pathology pending Discharge Conditions/Prognosis: good Discharge to: Home Contraceptive Plans: oral progesterone-only contraceptive Allergies at Discharge: No Known Allergies Immunizations Given this Hospitalization: Immunization History Administered Date(s) Administered ??? Influenza PF, Split 08/21/2018 ??? Tdap Vaccine 11/21/2018 Discharge Medications: Your Medications New Medications Dose Details acetaminophen 325 mg Tab Commonly known as: TYLENOL Take 2 tablets by mouth every 4 hours as needed for Pain (for mild pain). 650 mg Quantity: 30 tablet Refills: 1 ibuprofen 600 mg Tab Commonly known as: ADVIL;MOTRIN Take 1 tablet by mouth every 6 hours. 600 mg Quantity: 60 tablet Refills: 1 levothyroxine 75 mcg Tab Commonly known as: SYNTHROID Take 1 tablet by mouth daily. 75 mcg Quantity: 90 tablet Refills: 3 oxyCODONE 5 mg Tab Commonly known as: ROXICODONE Take 1 tablet by mouth every 4 hours as needed for Pain (Severe pain (7-10)). 5 mg Quantity: 15 tablet Refills: 0 polyethylene glycol 17 gram Pwpk Commonly known as: MIRALAX Take 17 g by mouth 2 times daily as needed. 17 g Quantity: 14 each Refills: 0 Smoking Status at Discharge: Social History Tobacco Use Smoking Status Former Smoker Smokeless Tobacco Never Used Instructions Given to Patient at Discharge: Patient Instructions Patient Instructions Follow-up: - blood pressure check on Monday 12/04 (you will receive a call to schedule) - In six weeks at [facility] or with your care provider - you should call to schedule an appointment Activity: Nothing in vagina for six weeks Do not lift more than 15 pounds for six weeks No driving for two weeks if you had a section or if you are taking narcotic medication. Please alternate tylenol 650mg every six hours and ibuprofen 600 mg every 6 hours, you can take oxycodone for pain that breaks through the other medicine Continue to take stool softener while taking narcotics. You can also take Miralax or milk of magnesia as needed Please call your OB provider for the following: Fever more than 100.5 degrees Heavy bleeding that saturates a pad an hour Increased abdominal pain, nausea, shaking chills Headache, change in vision, right upper quadrant pain, or increased swelling in your hands/face Redness, increased pain, discharge at incision if you had a delivery. Increased pain in the area of stitches outside your vagina. Hot, hard, tender areas on the breast and feeling generally unwell. Depression Contact Numbers: If you see an senior functional analyst call: [phone] 9 am - 5 pm, after 5 pm If you see a alcoholism worker call: [phone] all hours If you were transferred to our institution for delivery and cannot reach your local OB provider, call the senior functional analyst numbers. General Instructions Nursing Inpatient Progress C - Section Follow-up Follow-up: 6 week visit ? will be scheduled with your primary OB provider ? please call to schedule with your primary OB provider Maternal Discharge Instructions Rest: Although it may seem impossible to get enough rest, simple planning will help. Plan to rest and/or sleep when your baby does. Limiting visitors also helps. Other family members can help by doing housework, caring for other children and/or helping limit visitors. Activity: After delivery, it is safe to climb stairs at home and gradually increase your activity level. Do not drive for two weeks or while taking narcotic pain medicine as your reaction time may be decreased. Do not lift more than 15 pounds for 6 weeks and no swimming until the vaginal bleeding stops. Nutrition: Your diet following the of your baby is as important as it was before the baby wasborn. Drinking a minimum of 6-8 glasses of water a day will help keep you hydrated. Continue takingyour vitamins until you are no longer . Continue taking stool softeners as recommended by the doctor. Do not attempt to lose weight during the first six weeks. Sweating. Hormonal changes following delivery frequently cause night sweats which are normal over the next 6 weeks. Sleeping on towels and using a fan may make you more comfortable. Incision: Wash the incision with soap and water and pat dry. It is normal to have clear or pinkish fluid seep from the incision. Gauze pads or sanitary napkins may help to keep the incision dry if itis located in a fold under your tummy. After 7-10 days remove any steri-strips which may still be over your incision. If the incision has more redness, yellow drainage, or becomes more painful, contact the obstetrics clinic. Lochia: (Flow) Your flow should be no heavier than a normal period. It will be bright red and then transition to pink, brown, yellow, and finally colorless. This may last a few weeks. If your vaginalbleeding becomes bright red again, decrease your activity. We recommend pelvic rest until your bleeding and spotting stops and your episiotomy or vaginal tearhas healed. This may take up to six weeks. Pelvic rest includes activities such as douching, use oftampons/menstrual cups or sexual intercourse. Perineum: For about a week continue to rinse yourself with warm water when you use the toilet. A sitz bath with Epsom salt taken 2 times a day and use of witch abran may help relieve soreness. Kegel exercise, done regularly throughout the day, will help tighten the perineal muscles and speed recovery. Breast Care for Formula feeding mothers: Wear a well-fitting bra to support your breasts. Ice packsto your breasts (10 minutes at a time) as well as alternating Tylenol and Ibuprofen may be used to relieve discomfort from engorgement. Avoid stimulating your breasts: Do not let warm water from the shower fall directly on your breast;do not express any colostrum; avoid holding your baby near your breasts until your milk begins to decrease and engorgement is relieved. Breast Care for mothers: Practice careful positioning and frequent feeding as demonstrated in the hospital. The printed information in your packet covers this in detail. For More Information: https://www.acog.org/Patients or refer to [facility]???s Your and Childbirth: Month to Month book which you may have received from the OB Clinic. Call your doctor or alcoholism worker for: ??? Seizure (call 911) ??? Headache which isn???t relieved with Tylenol ??? Headache with visual changes ??? Pain in your chest ??? Shortness of breath ??? Pain in upper right abdomen ??? Fever more than 100.4 ??? Breast with hot, hard, tender areas on the breast plus flu-like symptom ??? Increased abdominal pain, nausea, shaking chills ??? Increased redness or soreness over your incision/ incision isn???t healing ??? Heavy bleeding that saturates a pad an hour ??? Clots larger than an egg ??? Red or swollen leg which is painful or warm to the touch ??? depression occurs in a large percentage of women. We encourage you to contact your provider or a member of the nursing staff if you are feeling so overwhelmed that you are unable to care for yourself or your baby. Keep your follow up appointment. You may call the [facility] at any time for guidance or for answers to questions that come up prior to you follow up appointment. Your [facility] Provider can be reached during office hours at ??? Midwives ??? Obstetricians ??? Services AFTER OFFICE HOURS for the senior functional analyst or alcoholism worker oncology patient navigator Discharge References/Attachments None documented in this encounter Discharge Instructions * Discharge Instructions* Ana Monae RN - 11/30/2018 9:04 AM EST Images from the original note were not included. Nursing Inpatient Progress C - Section Follow-up Follow-up: 6 week visit ? will be scheduled with your primary OB provider ? please call to schedule with your primary OB provider Maternal Discharge Instructions Rest: Although it may seem impossible to get enough rest, simple planning will help. Plan to rest and/or sleep when your baby does. Limiting visitors also helps. Other family members can help by doing housework, caring for other children and/or helping limit visitors. Activity: After delivery, it is safe to climb stairs at home and gradually increase your activity level. Do not drive for two weeks or while taking narcotic pain medicine as your reaction time may be decreased. Do not lift more than 15 pounds for 6 weeks and no swimming until the vaginal bleeding stops. Nutrition: Your diet following the of your baby is as important as it was before the baby wasborn. Drinking a minimum of 6-8 glasses of water a day will help keep you hydrated. Continue takingyour vitamins until you are no longer . Continue taking stool softeners as recommended by the doctor. Do not attempt to lose weight during the first six weeks. Sweating. Hormonal changes following delivery frequently cause night sweats which are normal over the next 6 weeks. Sleeping on towels and using a fan may make you more comfortable. Incision: Wash the incision with soap and water and pat dry. It is normal to have clear or pinkish fluid seep from the incision. Gauze pads or sanitary napkins may help to keep the incision dry if itis located in a fold under your tummy. After 7-10 days remove any steri-strips which may still be over your incision. If the incision has more redness, yellow drainage, or becomes more painful, contact the obstetrics clinic. Lochia: (Flow) Your flow should be no heavier than a normal period. It will be bright red and then transition to pink, brown, yellow, and finally colorless. This may last a few weeks. If your vaginalbleeding becomes bright red again, decrease your activity. We recommend pelvic rest until your bleeding and spotting stops and your episiotomy or vaginal tearhas healed. This may take up to six weeks. Pelvic rest includes activities such as douching, use oftampons/menstrual cups or sexual intercourse. Perineum: For about a week continue to rinse yourself with warm water when you use the toilet. A sitz bath with Epsom salt taken 2 times a day and use of witch abran may help relieve soreness. Kegel exercise, done regularly throughout the day, will help tighten the perineal muscles and speed recovery. Breast Care for Formula feeding mothers: Wear a well-fitting bra to support your breasts. Ice packsto your breasts (10 minutes at a time) as well as alternating Tylenol and Ibuprofen may be used to relieve discomfort from engorgement. Avoid stimulating your breasts: Do not let warm water from the shower fall directly on your breast;do not express any colostrum; avoid holding your baby near your breasts until your milk begins to decrease and engorgement is relieved. Breast Care for mothers: Practice careful positioning and frequent feeding as demonstrated in the hospital. The printed information in your packet covers this in detail. For More Information: https://www.acog.org/Patients or refer to [facility]???s Your and Childbirth: Month to Month book which you may have received from the OB Clinic. Call your doctor or alcoholism worker for: ??? Seizure (call 911) ??? Headache which isn???t relieved with Tylenol ??? Headache with visual changes ??? Pain in your chest ??? Shortness of breath ??? Pain in upper right abdomen ??? Fever more than 100.4 ??? Breast with hot, hard, tender areas on the breast plus flu-like symptom ??? Increased abdominal pain, nausea, shaking chills ??? Increased redness or soreness over your incision/ incision isn???t healing ??? Heavy bleeding that saturates a pad an hour ??? Clots larger than an egg ??? Red or swollen leg which is painful or warm to the touch ??? depression occurs in a large percentage of women. We encourage you to contact your provider or a member of the nursing staff if you are feeling so overwhelmed that you are unable to care for yourself or your baby. Keep your follow up appointment. You may call the [facility] at any time for guidance or for answers to questions that come up prior to you follow up appointment. Your [facility] Provider can be reached during office hours at ??? Midwives ??? Obstetricians ??? Services AFTER OFFICE HOURS for the senior functional analyst or alcoholism worker oncology patient navigator * Patient Instructions* Shelly Gauthier - 11/30/2018 9:04 AM EST Images from the original note were not included. Patient Instructions Follow-up: - blood pressure check on Monday 12/04 (you will receive a call to schedule) - In six weeks at [facility] or with your care provider - you should call to schedule an appointment Activity: Nothing in vagina for six weeks Do not lift more than 15 pounds for six weeks No driving for two weeks if you had a section or if you are taking narcotic medication. Please alternate tylenol 650mg every six hours and ibuprofen 600 mg every 6 hours, you can take oxycodone for pain that breaks through the other medicine Continue to take stool softener while taking narcotics. You can also take Miralax or milk of magnesia as needed Please call your OB provider for the following: Fever more than 100.5 degrees Heavy bleeding that saturates a pad an hour Increased abdominal pain, nausea, shaking chills Headache, change in vision, right upper quadrant pain, or increased swelling in your hands/face Redness, increased pain, discharge at incision if you had a delivery. Increased pain in the area of stitches outside your vagina. Hot, hard, tender areas on the breast and feeling generally unwell. Depression Contact Numbers: If you see an senior functional analyst call: [phone] 9 am - 5 pm, after 5 pm If you see a alcoholism worker call: [phone] all hours If you were transferred to our institution for delivery and cannot reach your local OB provider, call the senior functional analyst numbers. documented in this encounter Medications at Time of Discharge Medication Sig Dispensed Refills Start Date End Date acetaminophen (TYLENOL) 325 mg Tablet Take 2 tablets by mouth every 4 hours as needed for Pain (for mild pain). 30 tablet 1 11/30/2018 12/20/2018 ibuprofen (ADVIL;MOTRIN) 600 mg Tablet Take 1 tablet by mouth every 6 hours. 60 tablet 1 11/30/2018 12/20/2018 levothyroxine (SYNTHROID) 75 mcg Tablet Take 1 tablet by mouth daily. 90 tablet 3 12/01/2018 12/04/2018 oxyCODONE (ROXICODONE) 5 mg Tablet Take 1 tablet by mouth every 4 hours as needed for Pain (Severe pain (7-10)). 15 tablet 11/30/2018 12/20/2018 polyethylene glycol (MIRALAX) 17 gram Powder in Packet Take 17 g by mouth 2 times daily as needed. 14 each 11/30/2018 12/20/2018 documented as of this encounter Progress Notes * Juliana Olvera RN - 11/30/2018 10:45 AM EST VSS. Good pain control with Tylenol and Advil this morning. Abdomen tender C- section incision WDL. Lochia light. No issues with oral intake. Pumping every three house with massage prior to sessions. Patient up to ICN to be present for rounds on baby. Tylenol and Ibprofen administered prior to discharge. AVS reviewed with patient and . Patient tearful at end of AVS after reading Call your doctor or alcoholism worker for: depression occurs in large percentage of women. Emotional supportand encouragement provided. Patient appreciative of support. * Ana Monae RN - 11/30/2018 10:20 AM EST Pt ready for discharge to home. Visiting baby in ICN. Discharge summary and AVS reviewed with pt and spouse. All questions answered. S/S to report discussed and pt verbalized understanding. Remains in ICN at this time with spouse and NB boy; will be staying at nearby hotel. * Shelly Gauthier - 11/30/2018 9:23 AM EST Delivery Note Patient ID: Asha Ospina is a 28 y.o. year old who is postop day #1 after primary section at 31w6d for NRFHT remote from delivery and growth restriction. S: The patient complains of mild incisional pain. Pain is well controlled. Pumping for infant nutrition without difficulty. Ambulating without weakness/dizziness, tolerating a regular diet without nausea/vomiting, voiding spontaneously; + flatus. Lochia moderate. Patient would like the minipill for contraception. O: Last value Range last 24 hrs Temperature Temp: 36.7 ??C (98.1 ??F) Temp: [36.7 ??C (98.1 ??F)-36.8 ??C (98.2 ??F)] Heart Rate Heart Rate: 76 Heart Rate: [68-80] Blood Pressure BP: 110/70 BP: (110-132)/(60-76) Respiratory Rate Resp: 18 Resp: [18-20] SpO2 SpO2: 97 % SpO2: [97 %-98 %] Exam: Gen: appears well, in no acute distress. Cardiac: RRR, S1, S2, no rub/gallop/murmur. Pulmonary: CTAB, no rales, wheeze/rhonchi. Abdomen: Soft, symmetric, appropriately tender at incision, BS active, no rebound/guarding Uterus: firm, 3 cm below umbilicus, appropriately tender Incision: clean/dry/intact, well approximated with dermabond, no erythema/exudate Extremities: nontender, no edema. Labs: Recent Labs // 0411 11/27/18 1515 WBC 17.4* 12.8* HGB 12.4 12.7 HCT 35.3* 36.5 PLATELET 245 289 Recent Labs // 1515 CREATININE 0.56* Assessment: POD#3. Patient doing well without issues. Postoperative hemoglobin appropriate and consistent with estimated blood loss. Discussed contraceptive options in depth; she would like the minipill. Otherwise no issues; appropriate for discharge today. Other Medical Issues/Concerns: ?? RH negative status: A neg, Rhogam not indicated ?? Hypothyroidism: continues on 75 mcg of Synthroid Plan: ?? Continue routine care. ?? Minipill for contraception ?? Pumping for infant nutrition without concerns ?? Gestational HTN: diagnosed on POD#1, does not need antihypertensives, will have blood pressure check on POD#7 ?? Follow-up: 6 week PP visit, 2 week depression screen This patient was seen and discussed on rounds. Shelly Gauthier MD PGY3 11/30/2018 Associated attestation - Jose Yang MD - 12/01/2018 8:51 AM EST The patient had a due to NRFHT in setting of IUGR. I personally saw and evaluated the patient during morning report and rounds with the resident physicians and nursing staff. The patient is making good post-operative progress. I agree with Dr. Gauthire's assessment and plan as documented above. We anticipate discharge on post-operative day #3. Jose YANG MD * Willian Stapleton RN - 11/29/2018 10:23 AM EST Patient Name: Asha Ospina Patient Age: 28 y.o. Birthdate: 1990 Admit date: 11/27/2018 Attending Physician: Jose Yang MD Office of Care Management Initial Assessment ?? WILLIAN STAPLETON RN reviewed record and discussed patient with Care Team. ?? Source of Information: Asha & Mikhail, couple Introduced self/reviewed role; services accepted. 's legal name: Carl Zarate ?? Reason for Hospitalization: Asha Ospina is a 28 y.o. at 31w6d gestation being admitted forantenatal surveillance for growth restriction ?? Past??Medical??History No past medical history on file. ?? Hospitalizations Within the Past 30 Days: none ?? Anticipated Length Of Stay (If known):2-3 days post C/C del. ?? Current Decision-Making Capacity: Asha is capable of making her own decisions ?? Advance Care Planning: full code, no AD on file at [facility] ?? Current Coping/Education/Information Needs: Parents are coping well, they will be staying at a local hotel thru the weekend, and switch to [employer]. ?? Current Functional Ability:full diet, ambulating well. ?? Home Environment: Parents live in [facility] [facility] ?? Social & Family Supports/Community Resources: Good family support near them now. Both sets of GP live in [facility] [place] [facility]. ?? Behavioral Health History: none ?? 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 ?? Health/Prescription Coverage: Primary Insurance: [place] Secondary Insurance: N/A Prescription Coverage: as above Preferred Pharmacy: [facility] in [facility]. Other: none ?? Primary Care Provider: Susan Alvarez, [facility] [phone] ?? Patient/Caregiver Goals of Treatment: d/c on 2-3 days ?? Potential Needs for Transition of Care: Rehab/SNF: none Home Health: none DME: MOB received PIS breast pump / [facility]. [facility] will prior authorize a symphony breast pump. Dialysis: none Community Resources: none Transportation: own car, has car seat. Other: none ?? Anticipated Barriers to Discharge/Special Considerations: none ?? Assessment & Plan Asha Ospina is a 28 y.o. at 31w6d gestation. Bedside biophysical profile 04/21 (points off for tone and NST). NST with periods of minimal variability and spontaneous decelerations. Patient has received betamethasone (complete on 11/25). Magnesium for neuroprotection started on admission. Elevated blood pressures on admission - preeclampsia labs ordered. Decision to proceed with section in the setting of non-reassuring status and growth restriction ?? A member of the Care Management team will continue to monitor progress, follow for continuity of care and assist with transition of care planning. ?? WILLIAN STAPLETON RN Pager: [phone] ?? Stephanie Lopes MD - 11/29/2018 7:00 AM EST Delivery Note Patient ID: Ahsa Ospina is a 28 y.o. year old who is postop day #2 after primary section at 31w6d for NRFHT remote from delivery and growth restriction. S: The patient complains of mild abdominal pain. Pain is well controlled. Pumping for infant nutrition without difficulty. Ambulating without weakness/dizziness, tolerating a regular diet without nausea/vomiting, voiding spontaneously; + flatus. Lochia moderate. Patient would like the minipill for c ontraception. O: Last value Range last 24 hrs Temperature Temp: 36.5 ??C (97.7 ??F) Temp: [36.5 ??C (97.7 ??F)-37.2 ??C (99 ??F)] Heart Rate Heart Rate: 67 Heart Rate: [62-72] Blood Pressure BP: 120/62 BP: (120-142)/(62-93) Respiratory Rate Resp: 16 Resp: [16-18] SpO2 SpO2: 98 % SpO2: [98 %-100 %] Intake/Output Summary (Last 24 hours) at 11/29/2018 0700 Last data filed at 11/28/2018 1520 Gross per 24 hour Intake -- Output 3200 ml Net -3200 ml Exam: Gen: appears well, in no acute distress. Cardiac: RRR, S1, S2, no rub/gallop/murmur. Pulmonary: CTAB, no rales, wheeze/rhonchi. Abdomen: Soft, symmetric, appropriately tender at incision, BS active, no rebound/guarding Uterus: firm, 3 cm below umbilicus, appropriately tender Incision: clean/dry/intact, well approximated with dermabond, no erythema/exudate Extremities: nontender, no edema. Labs: Recent Labs 11/28/18 0411 11/27/18 1515 WBC 17.4* 12.8* HGB 12.4 12.7 HCT 35.3* 36.5 PLATELET 245 289 Recent Labs 11/27/18 1515 CREATININE 0.56* Assessment: POD#2. Patient doing well without issues. Postoperative hemoglobin appropriate and consistent with estimated blood loss. Discussed contraceptive options in depth; she would like the minipill. Otherwise no issues; anticipate discharge on postop day #2-3. Other Medical Issues/Concerns: ?? RH negative status: need Rhogam PP ?? Hypothyroidism: continues on 75 mcg of Synthroid Plan: ?? Continue routine care. ?? Minipill for contraception ?? Pumping for infant nutrition without concerns ?? Ferrous sulfate for anemia at discharge. ?? Follow-up: 6 week PP visit, 2 week depression screen This patient was seen and discussed on rounds. STEPHANIE GARZA MD PGY4 11/29/2018 Associated attestation - Anya Diaz MD - 11/29/2018 10:40 AM EST Attending note I saw patient on rounds and agree with Dr. Garza's note above. The patient reports feeling well. Herbleeding is diminishing, and she is voiding without difficulty. She has adequate analgesia. She is able to ambulate. Temp: [36.5 ??C (97.7 ??F)-37.2 ??C (99 ??F)] Heart Rate: [66-72] Resp: [16-18] BP: (120-138)/(62-86) SpO2: [97 %-99 %] Heart Rate from SPO2: [62 bpm-82 bpm] Abdomen: soft, appropriately tender, fundus below umbilicus Wound/dressing: clean, dry, intact Ext: nontender, mod edema Impression: POD 2 after primary for IUGR and non reassuring testing doing well. Plan: Continue routine postoperative care. Anya Diaz MD . * Willian Stapleton RN - 11/28/2018 3:09 PM EST Patient Name: Asha Ospina Patient Age: 28 y.o. Birthdate: 1990 Admit date: 11/27/2018 Attending Physician: MD JENNIFER Taylor, Asha, given a PIS breast pump. The [facility] will prior authorize the symphony pump. I spoke with Silvia, , & gave her an update on the baby & MOB. * Storm Royal MD - 11/28/2018 1:47 PM EST Delivery Note Patient ID: Asha Ospina is a 28 y.o. year old who is postop day #1 after Primary section at 31w6d for NRFHT remote from delivery and growth restriction. S: The patient complains of mild abdominal pain. Pain is well controlled. for infantnutrition without difficulty. Ambulating without weakness/dizziness, tolerating a regular diet without nausea/vomiting, voiding spontaneously; + flatus. Lochia moderate. Patient would like the minipill for contraception. O: Last value Range last 24 hrs Temperature Temp: 37 ??C (98.6 ??F) Temp: [37 ??C (98.6 ??F)-37.1 ??C (98.8 ??F)] Heart Rate Heart Rate: 97 Heart Rate: [64-97] Blood Pressure BP: (!) 174/96 BP: (145-174)/(89-99) Respiratory Rate Resp: 18 Resp: [16-18] SpO2 SpO2: 99 % SpO2: [96 %-99 %] No intake or output data in the 24 hours ending 11/27/18 1621 Exam: Gen: appears well, in no acute distress. Cardiac: RRR, S1, S2, no rub/gallop/murmur. Pulmonary: CTAB, no rales, wheeze/rhonchi. Abdomen: Soft, symmetric, appropriately tender at incision, BS active, no rebound/guarding Uterus: firm, 1 cm below umbilicus, appropriately tender Incision/Dressing: clean/dry/intact, well approximated steri strips over subcuticular closure with dermabond, no erythema/exudate Extremities: nontender, no edema. Labs: Recent Labs 11/27/18 1515 WBC 12.8* HGB 12.7 HCT 36.5 PLATELET 289 No results for input(s): NA, K, CL, CO2, BUN, CREATININE, MAGNESIUM, PHOS in the last 168 hours. Assessment: POD#1. Patient doing well without issues. Postoperative hemoglobin appropriate and consistent with estimated blood loss. Discussed contraceptive options in depth; she would like the minipill. Otherwise no issues; anticipate discharge on postop day #2-3. Other Medical Issues/Concerns: ?? RH negative status: need Rhogam PP ?? Hypothyroidism: continues on 75 mcg of Synthroid Plan: ?? Continue routine care. ?? Minipill for contraception ?? BF for infant nutrition without concerns ?? Ferrous sulfate for anemia at discharge. ?? Follow-up: 6 week PP visit, 2 week depression screen This patient was seen and discussed on rounds. Dalia Aponte MD PGY1 11/27/2018 I have seen and examined the patient, providing blackwell components as outlined below. I have reviewed the resident???s above note; my evaluation of the patient is below: POD#1 CS at 31 6/7 weeks for IUGR and NRFWB. Pain controlled. Lochia light. Ambulating. Tolerating diet. Voiding. Visiting NICU. Pumping. No MCFARLAND's, vision changes or epigastric pain. BP: (!) 174/96 BP: (145-174)/(89-99) NAD Abdomen soft, NT Uterus NT dressing CDI Ext NT I/R POD#1 31 6/7 weeks IUGR, HTN Monitor BP closely and treat if persisent severe range HTN Micronor Rh neg STORM ROYAL MD * Renetta King RN - 11/27/2018 6:32 PM EST Elevated blood pressures in recovery reported to MD Dailey documented in this encounter H&P Notes * Stephanie Garza MD - 11/27/2018 3:17 PM EST Obstetrical Pre-Term Admission Note Asha Ospina is a 28 y.o. at 31w6d gestation being admitted for surveillance for growth restriction. HPI: Patient presents in transport from [facility] for surveillance. She received a course of betamethasone on 11/24 and 11/25. She presented today for a appointment, found to have non-reactive NST with decelerations and BPP 6/10. She was transferred for further evaluation. Her has been complicated by: 1. growth restriction 2. Hypothyroidism - levothyroxine 75 mcg 3. Rh negative - received Rhogam at 28 weeks gestation Denies any history of hypertension, asthma, diabetes. Review of Systems- Negative to complete review except as noted in the HPI. Obstetric Review of Systems Total Weight Gain this Not found. Movement: normal Contractions: none Leaking: None Bleeding; none now Preeclampsia signs and symptoms: None Active Hospital Problems Diagnosis ??? affected by growth restriction Resolved Hospital Problems No resolved problems to display. There are no active non-hospital problems to display for this patient. No past medical history on file. History reviewed. No pertinent surgical history. OB History Para Term AB Living 1 SAB TAB Ectopic Multiple Live Births # Outc Date GA Lbr Chetan/2nd Wgt Sex Del Anes PTL Lv 1 Current No medications prior to admission. No Known Allergies No family history on file. Social History Occupational History ??? Not on file Tobacco Use ??? Smoking status: Former Smoker ??? Smokeless tobacco: Never Used Substance and Sexual Activity ??? Alcohol use: No Frequency: Never ??? Drug use: No ??? Sexual activity: Yes Partners: Male Immunization History Immunization History Administered Date(s) Administered ??? Influenza PF, Split 08/21/2018 ??? Tdap Vaccine 11/21/2018 Last Set of Vitals: BP (!) 174/96 Pulse 97 Temp 37 ??C (98.6 ??F) (Oral) Resp 18 Ht 162.6 cm (5' 4) Wt 66.9 kg (147 lb 7.8 oz) SpO2 99% BMI 25.32 kg/m?? Physical Exam Gen: well appearing, no acute distress Cardio: nl rhythm, S1, S2 Pulm: CTA BL, no W/C/R Abd: soft, NT, ND, gravid Ext: warm, well-perfused, no ROCÍO or calf tenderness Neuro: grossly intact Clinical EFW: 1240 grams Presentations: Breech Heart Rate Interpretation: Baseline: 135, Variability: minimal, Accels: no, Decels: variable and late, [place]: 1 contraction noted Category: II Assessment & Plan Asha Ospina is a 28 y.o. at 31w6d gestation. Bedside biophysical profile 04/21 (points off for tone and NST). NST with periods of minimal variability and spontaneous decelerations. Patient has received betamethasone (complete on 11/25). Magnesium for neuroprotection started on admission. Elevated blood pressures on admission - preeclampsia labs ordered. Decision to proceed with section in the setting of non-reassuring status and growth restriction. Reviewed consent with the patient. Discussed risks such as maternal: bleeding, infection, need for blood transfusion, damage to nearby organs such as bladder; bowel; and ureters. Also discussed rare risks such as damage to the baby or maternal hysterectomy. Discussed benefits and alternatives. Patient had time to ask questions which were answered. Patient signed consent and it was placed in the chart. Anesthesia informed. Preop antibiotics ordered This patient was seen and discussed with Dr. Barthold, Attending LAUNDRY FOLDER. STEPHANIE GARZA MD 11/27/2018 Associated attestation - Addison Rivera MD - 11/27/2018 5:45 PM EST I saw and evaluated Asha with Dr Garza. I have read and agree with her history and physical exam above. Asha is a 28 yo @ 31+6 wks EGA transferred from [facility] for non- reassuring antepartum testing in setting of IUGR. Pt received Betamethasone on 11/24 and 11/25; has not received magnesium sulfate for neuroprotection. BP elevated on admission; will continue to follow/labs ordered. Initial monitoring with spontaneous variable decelerations, minimal variability and BPP 6/10. section recommended; patient and partner agree.Surgical consent reviewed and signed. ADDISON RIVERA MD documented in this encounter Miscellaneous Notes * Consult Note - Janessa Bales MD - 11/30/2018 11:47 AM EST TRANSFUSION MEDICINE SERVICE Laboratory Consult Note Date of Consultation: 12/04/2018 Reason for Consult:: We are reviewing laboratory testing records of Asha Ospina for the clarification of the HLA Platelet Antibody Screen results. Indication / Diagnosis: Ebony Ospina ([id number]) with thrombocytopenia History: Ebony Ospina is a 7-day-old with a history of intrauterine growth restriction who wasborn to Asha Ospina on 11/27/2020 at 31 weeks and 6 days by section for non-reassuring status. The Baby's period has been complicated by respiratory distress (requiring CPAP) and thrombocytopenia (requiring multiple platelet transfusions). An HLA / platelet antibody screen was ordered on Asha to evaluate for autoimmune thrombocytopenia (NAIT). This screen was POSITIVE in a calixto-reactive pattern. While this scenario appears to fit well with NAIT, the pattern of reactivity is not consistent with HPA-1a or any other common HPA antibody. It is possible that this pattern results from the presence of multiple antibodies, such as an HPA antibody and an HLA antibody. Testing for HPA-1a antigen testing has been ordered in [facility] [place] [place] as antibodies to this antigen are the most common cause of NAIT. However, additional work-up may be indicated prior to any future pregnancies. 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 Recommendation: Consider additional work-up for Asha for identification of potential HPA / HLA antigen incompatibilities and antibodies prior to future . MEENAKSHI LI MD 12/04/2018 I have reviewed the clinical and laboratory information and agree with Dr. Li's assessment andplan. We have sent of additional testing on Asha Ospina, the mother, to evaluate her HPA-1a status, this testing is currently pending. ADDENDUM: HPA-1a typing of the mother confirms the presence of this antigen and excludes the possibility of NAIT due to anti-HPA1a (the most common cause of NAITP in Caucasians). Additional testing is recommended to clarify maternal antibody status. [place] [facility] Out to [facility], test code [id number], initial testing of maternal sample. This testing will identify alloantibodies reactive with alloantigens HPA1a (already excluded) as well as HPA-1b; HPA-2a,-2b; HPA-3a,-3b; HPA-4a,-4b; HPA-5a,-5b; HPA-15a,-15b; and other specificities on GPIIb/IIIa, GPIa/ IIa, GPIb/IX, and GPIV. SPECIMEN REQUIREMENTS: 30 - 40 ml ACD-A whole blood and 10 ml serum from mother, send specimens to the Blood Bank. Please page me directly with any questions. Janessa Bales MD Education Supervisor, Transfusion Medicine Service Unix Administrator, Blood Bank 12/11/2018 Pager [phone] * Plan of Care - Ximena Castellanos RN - 11/30/2018 2:25 AM EST Problem: Patient Care Overview Goal: Plan of Care Review Outcome: Ongoing (Interventions Implemented as Appropriate) 11/30/18 0221 Coping/Psychosocial Plan Of Care Reviewed With patient Plan of Care Review Progress progress toward functional goals as expected OUTCOME EVALUATION NOTE: OUTCOME SUMMARY: Pt is POD 3 of a section. Pt reported increased nausea, abdominal pain and discomfort thisevening. MD notified. PRN Oxycodone given. Miralax changed to BID PRN and one time Pericolace givenw/ good effect. VSS. Afebrile. Resting between care. Significant other at bedside throughout the night. PLAN MOVING FORWARD: Pain and bowel management. D/C when medically stable. INDIVIDUALIZED FALL PREVENTION INTERVENTIONS: Patient-specific fall risk factors per assessment: [current deficits]: Post op Assistance [level of assistance required for transfers and ambulation]: Independent Supervision [direct monitoring required during toileting and ADLs]: Independent Surveillance [continuous indirect monitoring]: Hourly rounding, calls appropriately Patient-specific fall prevention interventions for sensory deficits provided, if applicable: [X] N/A CPG GOAL OUTCOME EVALUATION: * Plan of Care - Adelaida Perez RN - 11/29/2018 7:34 PM EST Problem: Patient Care Overview Goal: Individualization & Mutuality Outcome: Ongoing (Interventions Implemented as Appropriate) OUTCOME EVALUATION NOTE: OUTCOME SUMMARY: Asha's pain was well controlled with scheduled ibuprofen and PRN tylenol. Very light bleeding noted on medina pads. Off the unit with baby most of the day. PLAN MOVING FORWARD: DC tomorrow?? INDIVIDUALIZED FALL PREVENTION INTERVENTIONS: Patient-specific fall risk factors per assessment: [current deficits]: Pain, recent Assistance [level of assistance required for transfers and ambulation]: Independent Supervision [direct monitoring required during toileting and ADLs]: Independent Surveillance [continuous indirect monitoring]: Masimo, call light in reach Patient-specific fall prevention interventions for sensory deficits provided, if applicable: NA CPG GOAL OUTCOME EVALUATION: Problem: High-Risk/Critically Ill Patient (Obstetrics) Goal: Signs and Symptoms of Listed Potential Problems Will be Absent, Minimized or Managed (High-Risk/Critically Ill Patient) Signs and symptoms of listed potential problems will be absent, minimized or managed by discharge/transition of care (reference High-Risk/Critically Ill Patient (Obstetrics) CPG). Outcome: Ongoing (Interventions Implemented as Appropriate) 11/29/18 1924 High-Risk/Critically Ill OB Patient Problems Assessed (Critically Ill/High Risk ) all Problems Present (Critically Ill/High Risk ) pain;situational response * Plan of Care - Ximena Castellanos RN - 11/29/2018 3:04 AM EST Problem: Patient Care Overview Goal: Plan of Care Review Outcome: Ongoing (Interventions Implemented as Appropriate) 11/29/18 0245 Coping/Psychosocial Plan Of Care Reviewed With patient Plan of Care Review Progress progress toward functional goals as expected OUTCOME EVALUATION NOTE: OUTCOME SUMMARY: Pt arrived to unit at 0145. Pt is now POD 2 of a section. Incision c/d/i. Pt c/o 2/10 pain, stated that Ibuprofen and Tylenol help. No complaints of nausea. VSS. Afebrile. Significant other at bedside. PLAN MOVING FORWARD: Monitor incision, pain, I+O. D/C when medically stable. INDIVIDUALIZED FALL PREVENTION INTERVENTIONS: Patient-specific fall risk factors per assessment: [current deficits]: Post op Assistance [level of assistance required for transfers and ambulation]: Independent Supervision [direct monitoring required during toileting and ADLs]: Independent Surveillance [continuous indirect monitoring]: Family at bedside, Hourly rounding, calls appropriately Patient-specific fall prevention interventions for sensory deficits provided, if applicable: [X] N/A CPG GOAL OUTCOME EVALUATION: * Note - Kami Woody RN - 11/28/2018 10:30 AM EST This note was copied from a baby's chart. ASSESSMENT INPATIENT Encounter Date/Time: 11/28/2018 / 1030 Baby's name: Ebony Ospina : 11/27/2020 Time of : 4:31 PM Mode of Delivery: Lower Segment Transverse Gestational Age: Gestational Age: 31w6d Baby age: 18 hours old Birthweight: 2 lb 7.9 oz (1130 g) Weights since : Patient Vitals for the past 168 hrs: Weight 11/27/18 1756 (!) 1.13 kg (2 lb 7.9 oz) 11/27/18 1638 (!) 1.13 kg (2 lb 7.9 oz) 11/27/18 1631 (!) 1.13 kg (2 lb 7.9 oz) Overall weight loss: 0% MATERNAL INFO: Asha Ospina [id number] 1990 G 1 P 1 Significant History: Previous experience: None--first-time mom Breast Surgery: No Breast Changes During : Yes Breast Exam : Size: Large Shape: Round Venous Pattern: Within Normal Limits Milk Production: Colostral Phase Normal Has pumped 5 times since delivery yesterday at 1630. Obtaining small amounts Soft Filling Full Nipple Exam : Flat Short-shafted Color: Andale, darker face of nipple Compressible: Yes Trauma: None visible Nipple Care Management: [place] oil for pumping OBSERVATION: ASSESSMENT: In isolette on CPAP in RA PATIENT EDUCATION AND RECOMMENDATIONS: Pump at least 8-10 times per 24 hours and record in pumping log provided Breast massage and hand expression before and during pumping Brief heat prior to pumping and ice packs after pumping X 48 hours Cairo oil to nipples prior to pumping Frequent and prolonged maternal-infant skin to skin contact Close support and follow up Pamphlets Provided Colostrum swabbing Providing breastmilk for your in the intensive Care Nursery Your Premature 30 minutes were spent with this family, providing assessment, assistance, education, and support. Mother voices understanding of education and recommendations. Kami Woody RN, IBCLC [facility] Services * Med Student Progress Note - Chon Neves - 11/28/2018 7:02 AM EST Delivery Note Patient ID: Asha Ospina is a 28 y.o. POD #1 after Delivery @ 31 weeks 6 days EGA for non-reassuring antepartum testing (non-reactive NST and BPP 04/21), IUGR, and malpresentation in sonido breech, with EBL of 500 mL. Patient has received betamethasone (complete on 11/25). Magnesium for neuroprotection started on admission. Her has also been complicated by: 1. Hypothyroidism - on levothyroxine 75 mcg. 2. Rh negative status - received Rhogam at 28 weeks gestation. S: Pt examined at bedside this morning, resting comfortably. No acute events overnight, no new complaints. Pt tolerating regular diet w/o n/v, ambulating without difficulty, voiding spontaneously, passing flatus, minimal lochia. Pain well controlled with PO pain meds. She is for infant nutrition, and she plans to use progesterone-only pill for contraception. O: Last value Range last 24 hrs Temperature Temp: 37 ??C (98.6 ??F) Temp: [36.4 ??C (97.5 ??F)-37.1 ??C (98.8 ??F)] Heart Rate Heart Rate: 68 Heart Rate: [64-97] Blood Pressure BP: 136/90 BP: (132-174)/(78-99) Respiratory Rate Resp: 16 Resp: [16-18] SpO2 SpO2: 99 % SpO2: [95 %-99 %] Intake/Output Summary (Last 24 hours) at 11/28/2018 0702 Last data filed at 11/28/2018 0400 Gross per 24 hour Intake 2500 ml Output 2550 ml Net -50 ml UOP: 1050 mL over the past 12 hours (87.5 mL/hour; 1.3 mL/kg/hr) Exam: Gen: NAD Cardiac: RRR Pulmonary: CTAB, nl respiratory effort Abdomen: soft, +BS, NT/ND, no rebound or guarding, FF 2 cm below umbilicus Incision/Dressing: Surgical site clean/dry/intact, well approximated with steri strips over subcuticular closure, no erythema/exudate Extremities: nontender, no edema. Labs: Recent Labs 11/28/18 0411 11/27/18 1515 WBC 17.4* 12.8* HGB 12.4 12.7 HCT 35.3* 36.5 PLATELET 245 289 Recent Labs 11/27/18 1515 CREATININE 0.56* Assessment: Asha Ospina is a 28 y.o. POD #1 after Delivery @ 31 weeks 6 days EGA for non-reassuring antepartum testing (non-reactive NST and BPP 6/10), IUGR, and malpresentation in sonido breech, doing well POD#1, albeit with some mildly elevated blood pressures, which we will continue to monitor closely, with consideration of possible PO antihypertensive therapy if persistently elevated. 1. Pt meeting appropriate post op milestones. Patient has received betamethasone (complete on 11/25). Magnesium for neuroprotection started on admission. Cont routine post-op care. 2. Hgb 12.4 s/p EBL 500 mL. Pt asymptomatic for anemia. Cont to monitor for s/s of worsening anemia. 3. Hypothyroidism - Continue on levothyroxine 75 mcg daily. 4. Breast-feeding for nutrition with no concerns; patient planning to use progesterone-only pill for contraception. This patient was seen and discussed on rounds. Chon Neves, MS3 * L&D Delivery Note - Addison Rivera MD - 11/27/2018 9:41 PM EST Section Delivery Note Asha Ospina is a 28 y.o. woman at 31w6d gestational age admitted in transport from an outside hospital for evaluation of non-reassuring status with BPP 6/10 in the setting of IUGR, malpresentation. The patient had received a course of betamethasone in the 2 days prior to transport. On arrival at [facility], spontaneous variable decelerations were noted, and BPP was 6/10. Decision was made to proceed with a primary section secondary to non-reassuring status. complicated by growth restriction and breech presentation. She received a spinal for analgesia. Patient underwent uncomplicated primary low transverse section. Viable male infant. APGARSof 6 and 8. Weight of 1130g. Cord blood was taken and cord gases were obtained. Blood loss estimated at 500ccs. Please see op note for further details. STEPHANIE GARZA MD PGY4 11/27/2018 Information for the patient's : Ebony Ospina [[id number]] DELIVERY SUMMARY FOR Ebony Ospina (please note there is a separate summary for each fetus) 11/27/2018 4:31 PM by Lower Segment Transverse Sex: male Gestational Age: 31w6d Labor Events labor?: No GBS colonized: unknown steroids: Full Course Rupture date/time: 11/27/2018 1630 Rupture type: intact Fluid color: clear Labor onset type: section without labor Mother Delivery Episiotomy: None Surgical or additional est. blood loss (mL): 500 Combined est. blood loss (mL): 500 Delivery ([place]) Delivery Date: 11/27/18 Delivery Date: 4:31:00 PM Sex: Male Presentation: Breech Attempted ?: No Delivery Type: Delivery Type (Specific): Lower Segment Transverse Major Indications - : non-reassuring state Shoulder Dystocia Shoulder dystocia present?: No Delivery Information Delivery Location: OR Delivering Clinician: Addison Rivera MD ICN Staff Present: Yes Other Personnel: Provider Role Renetta King RN Delivery Nurse Addison Rivera MD Cranberry Sorter Ximena Mahoney RN Charge Nurse Stephanie Garza MD Resident Anesthesia Method: Spinal Cord Vessels: 3 Vessels Complications: None Cord Blood Disposition: Lab Gases Sent?: Yes Cord Insertion: normal Assessment & APGARS Living status: Living Apgars 1 Minute: 5 Minute: 10 Minute 15 Minute 20 Minute Skin Color: 1 2 Heart Rate: 2 2 Reflex Irritability: 1 2 Muscle Tone: 1 1 Respiratory Effort: 1 1 Total: 6 8 Apgars Assigned By: MARY MCPHERSON APRN Resuscitation Method: PPV Resuscitation Comment: brought to warmer, dried and stimulated, and given PPV starting at 30% FiO2 titrated up to 40% FiO2 with good response. Transitioned to PEEP without breaths at 3MOL. placed on FP prongs with CPAP 6. FOB at bedside, touched 's hand. Maternal [place] Feeding and Skin to Skin Reason skin to skin not initiated: Acuity Medications No data filed Measurements Weight: 1130 g Placenta Date and Time: 11/27/2018 4:33:34 PM Removal: Manual Removal Appearance: Intact Labor Length No data filed MD ADDISON Baker MD * Op Note - Addison Rivera MD - 11/27/2018 5:36 PM EST [facility] Operative Note ?? Patient Name: Asha Ospina : [id number] MR#: [id number] ?? Case Date: 11/27/2018 ?? Surgeon: Surgeon(s) and Role: * Addison Rivera MD - Primary * Stephanie Garza MD - Resident-Art Objects Supervisor ?? Preoperative diagnosis: Non-reassuring antepartum testing, IUGR, malpresentation, 31+6 wks EGA ?? Postoperative diagnosis: Non-reassuring antepartum testing, IUGR, malpresentation, 31+6 wks EGA ?? Procedure(s) (LRB): @ DELIVERY (VU 16.13) (Bilateral) Primary low transverse section ?? Anesthesia: Spinal ?? Findings: Variable decelerations in operating room prior to skin prep. Sonido breech infant, spontaneous respirations were slightly delayed, so cord clamping was not delayed a full 45 sec ?? Complications: none Intake: 1500 cc crystalloid Output: Estimated Blood Loss: 500 mL Urine Output:: 600 mL Other Output: (no other output recorded) ?? Drains: Jordan drained 600cc clear urine during surgery. Peripheral IV ?? Specimens removed during surgery: Placenta to path, cord gases attempted ?? Disposition: regional anesthesia administered without incident ?? Condition: doing well without problems HPI/ Indications for Procedure: Asha Ospina is a 28 y.o. who was admitted in transport from an outside hospital for surveillance of growth restriction. The decision was made to proceed with delivery secondary to non-reassuring antepartum testing: spontaneous decelerations and BPP 6/10. Fetus in sonido breech presentation. The risks, benefits and alternatives were discussed including bleeding, infection and damage to surrounding structures (bowel, bladder, uterus, tubes, ovaries, ureters, bloodvessels or nerves). The procedure was reviewed in detail with the patient, who had the opportunity to ask questions, all of which were answered. Consent was obtained. Procedure Description: The patient was taken to the Operating Room where spinal anesthesia was administered and found to be adequate. The patient was given 2gm cefazolin for antibiotic prophylaxis. The patient was placed in the dorsal supine position with a leftward tilt. A jordan catheter was placed. SCDs were placed forDVT prophylaxis. heart rate was obtained and was noted to have several variable decelerations. The patient was then prepped and draped in the usual sterile fashion. A time-out was performed rapidly with all members of the team in agreement. A Pfannenstiel skin incision was made with a scalpel and carried through to the underlying layer offascia with blunt dissection. The fascia was nicked in the midline and the incision was extended laterally with the curved Lopez scissors. The rectus muscle was dissected off with electrocautery, in the midline and the peritoneum was entered bluntly. The peritoneal incision was then extended superiorly and inferiorly to the bladder reflection. The bladder blade was then inserted and the vesicouterine peritoneum identified, grasped with pickups and entered sharply with Metzenbaum scissors. This incision was then extended laterally and the bladder flap created digitally. The bladder blade was replaced and the lower uterine segment incised in a transverse fashion with ascalpel. The hysterotomy was extended with cephalad and caudad traction. The bladder blade was thenremoved and a hand inserted into the uterus. The buttocks moved cephalad, and a foot was grasped and brought to the hysterotomy, gentle fundal pressure was applied to facilitate delivery of the . The buttocks and second leg were delivered, then the abdomen, shoulders and vertex were delivered with usual breech maneuvers including rotation, sweeping of the arms, and support of the bodyand attention to flexion of the neck to accomplish delivery of the head. Live born premature male infant was delivered. The cord was doubly clamped and cut; full 45 sec delay before cord clamping wasnot performed as was having intermittent respiratory effort on the OR field . The infant washanded off to the a waiting ICN team, who assigned Apgars of 6 and 8, weight 1130 gms. Cord blood was collected. Cord gases were collected. Oxytocin was initiated to facilitate uterine contractions. The placenta was expressed from the uterine cavity, intact. The uterus, tubes and ovaries appeared normal. The lower uterine segment was cleared of all clots and debris using a dry sponge. The uterine incision was repaired with 0 vicryl in a continuous lockedfashion. A second layer of the same suture was used to imbricate the first layer. Excellent hemostasis was appreciated. The parietal peritoneum was closed with 3-0 Vicryl. The hysterotomy, rectus muscles, and the bladder flap were checked again and found to be hemostatic. The fascia was reapproximated with 0-vicryl in a running fashion. The subcutaneous space was well irrigated and was loosely esther pproximated with a single suture of 2-0 plain gut suture. The skin was closed with 4-0 monocryl. Sterile dressings were applied over the incision. The uterus was expressed of clots with gentle fundalmassage. The patient and tolerated the procedure well and were in satisfactory condition at its conclusion. Instrument, lap and needle counts were correct times two at case close. The patient was taken back to her room in stable condition. Dr. Rivera, attending physician, was present for entire procedure. STEPHANIE GARZA MD 11/27/2018 ADDISON RIVERA MD * Brief Op Note - Addison Rivera MD - 11/27/2018 4:55 PM EST Brief Operative Note Patient Name: Asha Ospina : [id number] MR#: [id number] Case Date: 11/27/2018 Surgeon: Surgeon(s) and Role: * Addison Rivera MD - Primary * Stephanie Garza MD - Resident-Art Objects Supervisor Preoperative diagnosis: Non-reassuring antepartum testing, IUGR, 31+6 wks EGA Postoperative diagnosis: Non-reassuring antepartum testing, IUGR, 31+6 wks EGA Procedure(s) (LRB): @ DELIVERY (WRVU 16.13) (Bilateral) , LST Anesthesia: Spinal Findings: Variable decelerations in OR prior to skin prep. Sonido breech infant, spontaneous respirations were slightly delayed, so cord clamping was not delayed a full 45 sec Complications: none Intake: 1500 cc crystalloid Intraprocedure Crystalloid Total None Transfusion No data found. Output: Estimated Blood Loss: 500 mL Urine Output:: 600 mL Other Output: (no other output recorded) Drains: Jordan drained 600cc clear urine during surgery. Peripheral IV Specimens removed during surgery: Placenta to path, cord gases attempted Disposition: regional anesthesia administered without incident Condition: doing well without problems Attestation: Case Date: 11/27/2018 I was present and I participated during the entire procedure (does not need to include opening and closing). (Please see the Surgical Encounter Summary for any Implant and Specimen details pertinent to this patient.) ADDISON RIVERA MD documented in this encounter Plan of Treatment Not on file documented as of this encounter Procedures Procedure Name Priority Date/Time Associated Diagnosis Comments HEMOGRAM Routine 11/28/2018 4:11 AM EST DIFFERENTIAL, AUTOMATED Routine 11/28/19 4:11 AM EST LAVENDER TUBE HOLD Routine 11/28/2018 4: 11 AM EST CBC (WITH DIFF) Routine 11/28/2018 4:11 AM EST PROTEIN/CREATININE RATIO, URINE Routine 11/27/2018 5:17 PM EST SPECIMEN TO PATHOLOGY Routine 11/27/2018 5:10 PM EST SURGICAL PATHOLOGY REPORT Routine 11/27/2018 4:33 PM EST @ DELIVERY (WRVU 16.13) 11/27/2018 3:54 PM EST ABORH RECHECK STATUS Routine 11/27/2018 3:15 PM EST AB COMMENT Routine 11/27/2018 3:15 PM EST HEMOGRAM Routine 11/27/2018 3:15 PM EST DIFFERENTIAL, AUTOMATED Routine 11/27/19 3:15 PM EST GREEN TUBE HOLD Routine 11/27/2018 3:15 PM EST CREATININE Routine 11/27/2018 3:15 PM EST ANTIBODY IDENTIFICATION Routine 11/27/19 3:15 PM EST ABO/RH TYPING Routine 11/27/2018 3:15 PM EST CBC (WITH DIFF) Routine 11/27/2018 3:15 PM EST ANTIBODY SCREEN Routine 11/27/2018 3:15 PM EST TYPE AND SCREEN ([facility]/CGP/BRITTANY) Routine 11/27/2018 3:15 PM EST ASPARTATE AMINOTRANSFERASE Routine 11/27/2018 3:15 PM EST LACTATE DEHYDROGENASE Routine 11/27/2018 3:15 PM EST documented in this encounter Results * Lavender Tube HOLD (11/28/2018 4:11 AM EST) Lavender Hold Sample in lab. [facility] Blood specimen (specimen) Venous Draw / Unknown 11/28/2018 4:11 AM EST 11/30/2018 3:56 PM EST Ursula Matthew MD HEMATOLOGY ORDERABLE S [facility] [place] [address] * (ABNORMAL) Differential, Automated (11/28/2018 4:11 AM EST) Neutrophil % 75.0 % [facility] Neutrophil Absolute 13.00(H) 1.70 - 6.10 x10(3)/mc L [facility] Lymph % 15.5 % [facility] Lymphocytes Abs 2.7 0.9 - 3.2 x10(3)/mc L [facility] Monocyte % 8.3 % [facility] Monocyte Abs 1.4(H) 0.3 - 0.9 x10(3)/mc L [facility] Eos % 0.2 % [facility] Eosinophils Abs 0.0 0.0 - 0.4 x10(3)/mc L [facility] Basophil % 0.2 % [facility] Baso Absolute 0.0 0.0 - 0.1 x10(3)/mc L [facility] Immature Gran % 0.80 % [facility] Comment: Immature granulocytes(IG's)percentage and absolute count will include metamyelocytes, myelocytes, and promyelocytes. Blood smears from CBCs yielding IG's will be scanned manually for concordance. If this scan disagrees with the automated IG or if promyelocytes are noted, a manual differential will be performed. Immature Gran Absolute 0.14(H) 0.00 - 0.04 x10(3)/mc L [facility] Blood specimen (specimen) 11/28/2018 4:11 AM EST 11/28/2018 4:24 AM EST Narrative Resulting Agency Comment Spec In Lab Stephanie Garza MD HEMATOLOGY ORDERABLE S [facility] [place] [address] * (ABNORMAL) Hemogram (11/28/2018 4:11 AM EST) White Blood Cell 17.4(H) 4.0 - 9.5 x10(3)/mc L [facility] Red Blood Cell 3.91(L) 4.00 - 5.21 x10(6)/mc L [facility] Hemoglobin 12.4 11.7 - 15.5 gm/dL [facility] Hematocrit 35.3(L) 35.7 - 45.8 % [facility] Mean Cell Volume 90.3 82.6 - 94.4 fL [facility] Mean Cell Hemoglobin 31.7 27.1 - 32.0 pg [facility] Mean Cell Hemoglobin Concentration 35.1(H) 31.7 - 35.0 gm/dL [facility] Platelet 245 145 - 357 x10(3)/mc L [facility] RDW Standard Deviation 39.9 37.0 - 46.0 fL [facility] RDW coefficient of variation 12.1 11.5 - 14.1 % [facility] Mean Platelet Volume 10.9 7.6 - 12.9 fL [facility] NRBC% auto 0.0 % [facility] NRBC Absolute 0.000 0.000 - 0.000 x10(3)/mc L [facility] Blood specimen (specimen) 11/28/2018 4:11 AM EST 11/28/2018 4:24 AM EST Narrative Resulting Agency Comment Spec In Lab Stephanie Garza MD HEMATOLOGY ORDERABLE S Performing Organization Address City/[facility]/ZIP Co de Phone Number [facility] [place] [address] * Protein/Creatinine Ratio, urine (11/27/2018 5:17 PM EST) Creatinine, Urine 8 mg/dL [facility] Protein, Urine <6 0 - 12 mg/dL [facility] Protein / Creatinine Ratio, Urine <0.1 ratio [facility] Urine specimen (specimen) 11/27/2018 5:17 PM EST 11/27/2018 5:56 PM EST Narrative Resulting Agency Comment Spec In Lab E Moira Yang MD URINE ORDERABLES Performing Organization Address [facility] Co de Phone Number [facility] [place] [address] * Specimen to Pathology (11/27/2018 5:10 PM EST) AP Specimen 11/27/2018 5:10 PM EST 11/28/2018 10:04 AM EST Narrative [facility] - 11/28/2018 10:04 AM EST Specimen requisition ordered. ??Separate Pathology report to follow Resulting Agency Comment Spec In Lab E Moira Yang MD PATHOLOGY/CYTOLOG Y ORDERABLES Performing Organization Address [facility] Co de Phone Number [facility] [place] [address] * Surgical Pathology Report (11/27/2018 4:33 PM EST) Final Diagnosis [id number] ? Location: [facility]; [facility]; A The signing pathologist has (i) examined the relevant preparation(s) for the specimen(s) and (ii) rendered or confirmed the diagnosis(es). . ?Surgical Pathology DIAGNOSIS A - Pre-term placenta, 130 grams. ?Weight less than 10th percentile for gestation (placental hypoplasia). ?No chorioamnionitis. ?Chronic lymphoplasmacytic deciduitis of unknown etiology. ?Accelerated villous maturation with villous syncytiotrophoblastic knots ?and increased chorionic villus capillary profiles (chorangiosis). ?Three vessel umbilical cord with eccentric insertion and no funisitis. Electronically signed by: ??Joe SERVIN, Errol Fernández Verified: ??12/02/2018 ?Pathologist Performed at: ??-[facility] Dept. of Pathology, [place], [place] CLINICAL INFORMATION Specimen Submitted: A - Placenta Provided clinical history/diagnosis: delivery at 31 weeks gestation, growth restriction. SPECIMEN PROCESSING A - Labeled/Fixative: Placenta, fresh. Quantity/Size/Weight: Single, 13.5 x 13 x 1 cm, 130 g. Integrity: Intact. Shape: Discoid. Membranes: ? - Insertion: 100 percent marginal ??. ? - Color and Clarity: Pale pink and semitransparent. Cord: ? - Size: 21 x 0.5-1 cm. ? - Number of Vessels: Three. ? - Insertion site: Eccentric. Surface: ? - Color and Clarity: Andale-woo and semitransparent. Maternal Surface: Intact. ? - Lesions: Calcifications. The lesions occupy approximately 5% of the parenchymal volume. Parenchyma: Dark red spongy. Sections/Processing: [employer] sections in 5 cassettes as follows: ? A1: ??Membrane roll ? A2: ??Proximal and distal cord ? A3-A5: ??Full thickness parenchyma ??skylar 12/02/2018 1:24 PM [facility] TISSUE SPECIMEN FROM PLACENTA / Unknown 11/27/2018 4:33 PM EST 11/27/2018 4:33 PM EST Stephanie Garza MD PATHOLOGY/CYTOLOGY O RDERABLES Performing Organization Address [facility] Co de Phone Number [facility] [place] [address] * Ab Comment (11/27/2018 3:15 PM EST) Ab Information INTERPRETATION : The patient's specimen shows the presence of the antibody anti-D. ??The patient is negative for the RhD antigen. The patient recently received RhIg; the reactivity in the specimen almost certainly represents passive anti-D. ??Unit selection is per routine. Benigno Ireland MD Transfusion Medicine Service 11/28/18 11:58 [facility] Comment: BENIGNO IRELAND Verified:11/28/18 Blood specimen (specimen) 11/27/2018 3:15 PM EST 11/27/2018 3:32 PM EST Narrative Resulting Agency Comment Spec In Lab Stephanie Garza MD BLOOD BANK LAB ORDER LILO Performing Organization Address [facility] Co de Phone Number [facility] [place] [address] * Antibody identification (11/27/2018 3:15 PM EST) Ab Identified Anti-D passive [facility] Blood specimen (specimen) 11/27/2018 3:15 PM EST 11/27/2018 3:32 PM EST Narrative Resulting Agency Comment Spec In Lab Stephanie Garza MD BLOOD BANK LAB ORDER LILO Performing Organization Address [facility]/ZIP Co de Phone Number [facility] [place] [address] * ABORH Recheck Status (11/27/2018 3:15 PM EST) ABORH Recheck Order Order Placed [facility] ABORH Type Recheck Complete [facility] Blood specimen (specimen) 11/27/2018 3:15 PM EST 11/27/2018 3:32 PM EST Narrative Resulting Agency Comment Spec In Lab Stephanie Garza MD BLOOD BANK LAB ORDER LILO Performing Organization Address [facility]/ZIP Co de Phone Number [facility] [place] [address] * Green Tube HOLD (11/27/2018 3:15 PM EST) Green Hold Sample in lab. [facility] Blood specimen (specimen) Venous Draw / Unknown 11/27/2018 3:15 PM EST 11/27/2018 3:35 PM EST Stephanie Garza MD CHEMISTRY ORDERABLES Performing Organization Address [facility] Co de Phone Number [facility] [place] [address] * Antibody screen (11/27/2018 3:15 PM EST) Ab Screen Interp Positive [facility] Expires at [id number] on: 11/30/2018 [facility] Blood specimen (specimen) 11/27/2018 3:15 PM EST 11/27/2018 3:32 PM EST Narrative Resulting Agency Comment Spec In Lab Stephanie Garza MD BLOOD BANK LAB ORDER LILO Performing Organization Address City/[facility]/ZIP Co de Phone Number [facility] [place] [address] * ABO/Rh Typing (11/27/2018 3:15 PM EST) ABORH Type B Neg [facility] Blood specimen (specimen) 11/27/2018 3:15 PM EST 11/27/2018 3:32 PM EST Narrative Resulting Agency Comment Spec In Lab Stephanie Garza MD BLOOD BANK LAB ORDER LILO Performing Organization Address City/[facility]/ZIP Co de Phone Number [facility] [place] [address] * (ABNORMAL) Differential, Automated (11/27/2018 3:15 PM EST) Neutrophil % 63.3 % [facility] Neutrophil Absolute 8.07(H) 1.70 - 6.10 x10(3)/ L [facility] Lymph % 27.1 % [facility] Lymphocytes Abs 3.5(H) 0.9 - 3.2 x10(3)/ L [facility] Monocyte % 8.5 % [facility] Monocyte Abs 1.1(H) 0.3 - 0.9 x10(3)/ L [facility] Eos % 0.2 % [facility] Eosinophils Abs 0.0 0.0 - 0.4 x10(3)/[facility] Basophil % 0.3 % [facility] Baso Absolute 0.0 0.0 - 0.1 x10(3)/[facility] Immature Gran % 0.60 % [facility] Comment: Immature granulocytes(IG's)percentage and absolute count will include metamyelocytes, myelocytes, and promyelocytes. Blood smears from CBCs yielding IG's will be scanned manually for concordance. If this scan disagrees with the automated IG or if promyelocytes are noted, a manual differential will be performed. Immature Gran Absolute 0.08(H) 0.00 - 0.04 x10(3)/ L [facility] Blood specimen (specimen) 11/27/2018 3:15 PM EST 11/27/2018 3:28 PM EST Narrative Resulting Agency Comment Spec In Lab Stephanie Garza MD HEMATOLOGY ORDERABLE S Performing Organization Address City/[facility]/ZIP Co de Phone Number [facility] [place] [address] * (ABNORMAL) Hemogram (11/27/2018 3:15 PM EST) White Blood Cell 12.8(H) 4.0 - 9.5 x10(3)/[facility] Red Blood Cell 4.03 4.00 - 5.21 x10(6)/[facility] Hemoglobin 12.7 11.7 - 15.5 gm/dL [facility] Hematocrit 36.5 35.7 - 45.8 % [facility] Mean Cell Volume 90.6 82.6 - 94.4 fL [facility] Mean Cell Hemoglobin 31.5 27.1 - 32.0 pg [facility] Mean Cell Hemoglobin Concentration 34.8 31.7 - 35.0 gm/dL [facility] Platelet 289 145 - 357 x10(3)/[facility] LABORATORY RDW Standard Deviation 40.0 37.0 - 46.0 [facility] LABORATORY RDW coefficient of variation 12.0 11.5 - 14.1 % [facility] Mean Platelet Volume 11.4 7.6 - 12.9 fL [facility] NRBC% auto 0.0 % [facility] NRBC Absolute 0.000 0.000 - 0.000 x10(3)/[facility] LABORATORY Blood specimen (specimen) 11/27/2018 3:15 PM EST 11/27/2018 3:28 PM EST Narrative Resulting Agency Comment Spec In Lab Stephanie Garza MD HEMATOLOGY ORDERABLE S [facility] [place] [address] * Lactate Dehydrogenase (11/27/2018 3:15 PM EST) Lactate Dehydrogenase 176 110 - 220 unit/L [facility] Blood specimen (specimen) 11/27/2018 3:15 PM EST 11/27/2018 3:28 PM EST Narrative Resulting Agency Comment Spec In Lab E Moira Yang MD CHEMISTRY ORDERAB LES Performing Organization Address [facility] Co de Phone Number [facility] [place] [address] * (ABNORMAL) Creatinine (11/27/2018 3:15 PM EST) Creatinine 0.56(L) 0.70 - 1.20 mg/dL [facility] Est Glomerular Filtration Rate 125 >=60 mL/min/1.7 3 m?? [facility] Comment: The eGFR was calculated using the CKD-EPI equation. As with all creatinine based estimates of kidney function, eGFR values calculated with the CKD-EPI equation are not accurate in patients with acute kidney failure, extremes of body mass or the acutely ill. http://[employer]/[facility] eGFR 145 >=60 mL/min/1.7 3 m?? [facility] Comment: The eGFR was calculated using the CKD-EPI equation. As with all creatinine based estimates of kidney function, eGFR values calculated with the CKD-EPI equation are not accurate in patients with acute kidney failure, extremes of body mass or the acutely ill. http://[employer]/[facility] Blood specimen (specimen) 11/27/2018 3:15 PM EST 11/27/2018 3:28 PM EST Narrative Resulting Agency Comment Spec In Lab E Moira Yang MD CHEMISTRY ORDERAB LES Performing Organization Address [facility]/ZIP Co de Phone Number [facility] [place] [address] * Aspartate Aminotransferase (11/27/2018 3:15 PM EST) Aspartate Aminotransferase 17 0 - 30 unit/L [facility] Blood specimen (specimen) 11/27/2018 3:15 PM EST 11/27/2018 3:28 PM EST Narrative Resulting Agency Comment Spec In Lab E Moira Yang [place] [address] documented in this encounter Visit Diagnoses Not on filedocumented in this encounter Admitting Diagnoses Diagnosis affected by growth restriction documented in this encounter Administered Medications Inactive Administered Medications - up to 3 most recent administrations Medication Order MAR Action Action Date Dose Rate Site acetaminophen (TYLENOL) tablet 650 mg 650 mg, Oral, EVERY 4 HOURS PRN, Starting on Sun11/27/18 at 1717, Until 11/30/18 at 1349, Pain, for mild pain, For mild pain (pain scale 1-3). Maximum dose of acetaminophen is 4000 mg from all sources in 24 hours., Routine Given 11/30/2018 11:32 AM EST 650 mg Given 11/30/2018 5:03 AM EST 650 mg Given 11/29/2018 11:49 PM EST 650 mg glycerin-witch abran (TUCKS) 12.5-50 % pads Topical (Top), 4 TIMES DAILY PRN, Irritation, perineal pain, Starting on Sun11/27/18 at 1709, Until 11/30/18 at 1349 ibuprofen (ADVIL;MOTRIN) tablet 600 mg 600 mg, Oral, EVERY 6 HOURS, First dose on Sun11/28/18 at 2300, Until Discontinued, - Begin after ketorolac discontinued. , Routine Given 11/30/2018 11:32 AM EST 600 mg Given 11/30/2018 5:03 AM EST 600 mg Given 11/29/2018 11:49 PM EST 600 mg levothyroxine (SYNTHROID) tablet 75 mcg 75 mcg, Oral, DAILY, First dose on Sun11/28/18 at 0845, Until Discontinued, Routine Given 11/30/2018 5:03 AM EST 75 mcg Given 11/29/2018 6:01 AM EST 75 mcg Given 11/28/2018 8:42 AM EST 75 mcg oxyCODONE (ROXICODONE) immediate release tablet 5-10 mg 5-10 mg, Oral, EVERY 4 HOURS PRN, Starting on Sun11/27/18 at 1709, Until 11/30/18 at 1349, Pain, Severe pain (7-10), - Initial dose 5 mg. - If pain control not adequate in 60 minutes, give additional 5 mg., Routine Given 11/29/2018 9:25 PM EST 5 mg Given 11/28/2018 9:41 PM EST 5 mg polyethylene glycol (MIRALAX) packet 17 g 17 g, Oral, 2 TIMES DAILY PRN, Starting on Sun11/29/18 at 2145, Until 11/30/18 at 1349, Constipation, Routine Given 11/30/2018 9:18 AM EST 17 g Given 11/29/2018 9:52 PM EST 17 g simethicone (MYLICON) chewable tablet 80 mg 80 mg, Oral, 4 TIMES DAILY PRN, Starting on Sun11/27/18 at 1709, Until 11/30/18 at 1349, Cramping, gas pain, Routine Given 11/29/2018 7:02 PM EST 80 mg Given 11/28/2018 6:26 PM EST 80 mg sodium chloride 0.9 % flush 5 mL 5 mL, Intravenous, EVERY 12 HOURS, First dose on Sun11/27/18 at 1745, Until Discontinued, Routine Given 11/29/2018 9:14 PM EST 5 mLs Given 11/29/2018 8:59 AM EST 5 mLs Given 11/28/2018 5:45 AM EST 5 mLs documented in this encounter Active and Recently Administered Medications Times are shown in EST. Scheduled Medication Order 11/28/2018 11/29/2018 11/30/2018 docusate sodium (COLACE) capsule 100 mg (CANCELED) 100 mg, Oral, 2 TIMES DAILY, First dose on Sun11/27/18 at 2100, Until Discontinued, Routine 1205 (Given - Provider: Rajwinder Robison RN)2141 (Given - Provider: Kortney Pozo RN) 0847 (Given - Provider: Adelaida Perez RN)2114 (Given - Provider: Ximena Castellanos, MARILEE) ibuprofen (ADVIL;MOTRIN) tablet 600 mg(Linked Group 1) 600 mg, Oral, EVERY 6 HOURS, First dose on Sun11/28/18 at 2300, Until Discontinued, - Begin after ketorolac discontinued. , Routine 0009 (Given - Provider: Kortney Pozo RN)0601 (Given - Provider: Ximean Castellanos RN)1243 (Given - Provider: Adelaida Perez RN)1900 (Given - Provider: Adelaida Perez, MARILEE)2349 (Given - Provider: Ximena Castellanos RN) 0503 (Given - Provider: Ximena Casetllanos RN)1132 (Given - Provider: Juliana Olvera RN) ketorolac (TORADOL) injection 15 mg ()(Linked Group 1) 15 mg, Intravenous, EVERY 6 HOURS, 5 doses, First dose on Sun11/27/18 at 1730, Last dose on Sun11/28/18 at 1700, Routine 0007 (Given - Provider: Anya Juarez RN - Comment: pt in ICN when due at 2300)0714 (Given - Provider: Anya Juarez RN)1206 (Given - Provider: Rajwinder Robison, MARILEE)1826 (Given - Provider: Rajwinder Robison, MARILEE) levothyroxine (SYNTHROID) tablet 75 mcg 75 mcg, Oral, DAILY, First dose on Sun11/28/18 at 0845, Until Discontinued, Routine 0842 (Given - Provider: Katlin Strong RN) 0601 (Given - Provider: Ximena Castellanos RN) 0503 (Given - Provider: Ximena Castellanos RN) polyethylene glycol (MIRALAX) packet 17 g (CANCELED) 17 g, Oral, DAILY, First dose on Sun11/27/18 at 1730, Until Discontinued, Routine 1205 (Given - Provider: Rajwinder Robison, MARILEE) 0847 (Given - Provider: Adelaida Perez RN) senna-docusate (PERICOLACE) 8.6-50 mg per tablet 1 tablet (COMPLETED) 1 tablet, Oral, ONCE, 1 dose, On Sun11/29/18 at 2200, Routine 2152 (Given - Provider: Ximena Castellanos RN) sodium chloride 0.9 % flush 5 mL 5 mL, Intravenous, EVERY 12 HOURS, First dose on Sun11/27/18 at 1745, Until Discontinued, Routine 0545 (Given - Provider: Anya Juarez RN)1745 (Due) 0859 (Given - Provider: Adelaida Perez RN)2114 (Given - Provider: Ximena Castellanos, MARILEE) 0900 (Not Given - Provider: Juliana Olvera, MARILEE - Reason: Loss of access) PRN Medication Order 11/28/2018 11/29/2018 11/30/2018 acetaminophen (TYLENOL) tablet 650 mg 650 mg, Oral, EVERY 4 HOURS PRN, Starting on Sun11/27/18 at 1717, Until 11/30/18 at 1349, Pain, for mild pain, For mild pain (pain scale 1-3). Maximum dose of acetaminophen is 4000 mg from all sources in 24 hours., Routine 0414 (Given - Provider: Anya Juarez RN)1205 (Given - Provider: Rajwinder Robison, MARILEE)1826 (Given - Provider: Rajwinder Robison, MARILEE) 0009 (Given - Provider: Kortney Pozo, MARILEE)0601 (Given - Provider: Ximena Castellanos, MARILEE)1242 (Given - Provider: Adelaida Perez, MARILEE)1659 (Given - Provider: Adelaida Perez, MARILEE)2349 (Given - Provider: Ximena Castellanos, MARILEE) 0503 (Given - Provider: Ximena Castellanos, MARILEE)1132 (Given - Provider: Juliana Olvera, MARILEE) glycerin-witch abran (TUCKS) 12.5-50 % pads Topical (Top), 4 TIMES DAILY PRN, Irritation, perineal pain, Starting on Sun11/27/18 at 1709, Until 11/30/18 at 1349 lidocaine (XYLOCAINE) 10 mg/mL (1 %) injection 3 mg 3 mg (0.3 mL), Subcutaneous, ONCE PRN, 1 dose, Starting on Sun11/27/18 at 1717, Until 11/30/18 at 1349, for discomfort with PIV insertion, Routine oxyCODONE (ROXICODONE) immediate release tablet 5-10 mg 5-10 mg, Oral, EVERY 4 HOURS PRN, Starting on Sun11/27/18 at 1709, Until 11/30/18 at 1349, Pain, Severe pain (7-10), - Initial dose 5 mg. - If pain control not adequate in 60 minutes, give additional 5 mg., Routine 2140 (Given - Provider: Kortney Pozo, MARILEE) 2124 (Given - Provider: Ximena Castellanos, RN) polyethylene glycol (MIRALAX) packet 17 g 17 g, Oral, 2 TIMES DAILY PRN, Starting on Sun11/29/18 at 2145, Until 11/30/18 at 1349, Constipation, Routine 2152 (Given - Provider: Ximena Castellanos, MARILEE) 0918 (Given - Provider: Juliana Olvera RN) simethicone (MYLICON) chewable tablet 80 mg 80 mg, Oral, 4 TIMES DAILY PRN, Starting on Sun11/27/18 at 1709, Until 11/30/18 at 1349, Cramping, gas pain, Routine 1826 (Given - Provider: Rajwinder Robison, MARILEE) 1902 (Given - Provider: Adelaida Perez RN) sodium chloride 0.9 % flush 5-20 mL 5-20 mL, Intravenous, EVERY 1 MIN PRN, Starting on Sun11/27/18 at 1717, Until 11/30/18 at 1349, flush, Flush pertains to all indwelling lines. Flush per protocol found in the job aid using the link provided on this medication record., Routine Linked Groups Order Group 1: ketorolac (TORADOL) injection 15 mg ()Jump to med 15 mg, Intravenous, EVERY 6 HOURS, 5 doses, First dose on Sun11/27/18 at 1730, Last dose on Jyotsna 11/28/18 at 1700, Routine Followed by ibuprofen (ADVIL;MOTRIN) tablet 600 mgJump to med 600 mg, Oral, EVERY 6 HOURS, First dose on Jyotsna 11/28/18 at 2300, Until Discontinued, - Begin after ketorolac discontinued. , Routine documented in this encounter Care Teams Environmental Health Safety Engineer Relationship Specialty Start Date End Date Susan Alvarez APRN [address] [place] [address] PCP - General Family Medicine 07/16/18 11/10/19 documented as of this encounter
--- OUTSIDE RECORDS SUMMARY | 2024-09-24 13:44 | XMS_ITS | Encounter Summary ---
[place] [address] Care Team Providers Care Community Relations Manager Name Role Phone Susan Alvarez APRN Primary Care Provider + Encounter Details Date Type Department Care Team (Late st Contact Info) Description 07/19/2018 Orders Only Obstetrics [place] [address] Ursula Cardoso [facility] OBSTETRICS & [place] [address] Encounter for screening of mother Social History Tobacco Use Types Packs/Day Years Used Date Smoking Tobacco: Never Assessed Sex and Gender Information Value Date Recorded Sex Assigned at Not on file Gender Identity Not on file Sexual Orientation Not on file documented as of this encounter Plan of Treatment Not on file documented as of this encounter Results * Integrated Screening 2 (08/15/2018 12:37 PM EDT) Pathologist [facility] Intergrated Screening Part 2 ([place]) See Scan Report [facility] Comment:Test performed by [facility], [address] [place] [address] Blood specimen (specimen) 08/15/2018 12:37 PM EDT 08/15/2018 3:21 PM EDT Narrative Resulting Agency Comment Spec In Lab Anya Diaz MD LAB [place] [address] documented in this encounter Visit Diagnoses Diagnosis Encounter for screening of mother Unspecified screening documented in this encounter Care Teams Community Relations Manager Relationship Specialty Start Date End Date Susan Alvarez APRN [address] [place] [address] PCP - General Family Medicine 07/16/18 11/10/19 documented as of this encounter
--- OUTSIDE RECORDS SUMMARY | 2024-09-24 13:44 | XMS_ITS | Encounter Summary ---
Author Organization Formerly [facility] Address [facility] [place] [address] Care Team Providers Care Electronics Production Supervisor Name Role Phone Susan Alvarez APRN Primary Care Provider + Encounter Details Date Type Department Care Team (Latest Contact Info) Description 12/02/2018 3:24 PM EST - 12/02/2018 11:59 PM EST Hospital Encounter [facility] [address] [place] [address] Anya Diaz MD [facility] DR OBSTETRICS [place] [address] Discharge Disposition: Home Social History Tobacco Use Types Packs/Day Years Used Date Smoking Tobacco: Former Smokeless Tobacco: Never Alcohol Use Standard Drinks/Week Comments No 0 (1 standard drink = 0.6 oz pur e alcohol) Sex and Gender Information Value Date Recorded Sex Assigned at Not on file Gender Identity Not on file Sexual Orientation Not on file documented as of this encounter Medications at Time of Discharge [...] 11/30/2018 12/20/2018 documented as of this encounter Plan of Treatment Not on file documented as of this encounter Visit Diagnoses Not on filedocumented in this encounter Care Teams Electronics Production Supervisor Relationship Specialty Start Date End Date Susan Alvarez APRN [address] [place] [address] PCP - General Family Medicine 07/16/18 11/10/19 documented as of this encounter
--- OUTSIDE RECORDS SUMMARY | 2024-09-24 13:44 | XMS_ITS | Encounter Summary ---
Author Organization [facility] [place] [address] Care Team Providers Care Powder Expert Name Role Phone Susan Alvarez APRN Primary Care Provider + Encounter Details Date Type Department Care Team (Latest Contact Info) Description 01/07/2019 Encounter Social History Tobacco Use Types Packs/Day [...] * Note - Kami Woody RN - 01/07/2019 2:00 PM EST This note was copied from a baby's chart. INFANT ORAL MOTOR EXAMINATION Oral Motor Examination/Function: Mouth: Small Jaw: slightly Receding Lips: Normal Cleft Passively pulled in Pursed/Tight Gums: Normal Asymmetrical Excessive clinching/biting Tongue: Normal resting position Curls up, slightly thick appearing. See PATIENT ACCESS MANAGER assessment Frenulum: not assessed Palate: Arched Observation: Position: Laid back Rooting: Normal Tended not to root if RR > 70, once it decreased, he could start suckling Attachment: Adequate With small nipple shield Milk Ejection Reflex: Prior to Attachment Swallow: Normal/Coordination Suck:Swallow Ratio: 1-2:1 Sucking Burst Pattern: nutritive/mature when RR is lower Maternal Considerations : Mom stayed in hotel overnight, not at bedside. [place] much more rested today. Very relaxed during On-going Concerns: Premature post menstrual age: 37 5/7 Has significant tachypnea at times which clearly affects his ability to feed Risk for feeding difficulties Monitor growth and nutrition closely Recommendations: Breast visits and practice as cues for readiness Frequent skin to skin contact and Kangaroo-Mother care Continue with laid back position Pump frequently at least 8-10 times per 24 hours after feeds and record in pumping log JASPAL Marr [facility] [place] documented in this encounter Plan of Treatment Not on file documented as of this encounter Visit Diagnoses Not on filedocumented in this encounter Care Teams Powder Expert Relationship Specialty Start Date End Date Susan Alvarez APRN [address] [place] [address] PCP - General Family Medicine 07/16/18 11/10/19 documented as of this encounter
--- OUTSIDE RECORDS SUMMARY | 2024-09-24 13:44 | XMS_ITS | Encounter Summary ---
Author Organization [facility] [place] [address] Care Team Providers Care Supervisor Of Research Name Role Phone Susan Alvarez APRN Primary Care Provider + Encounter Details Date Type Department Care Team (Latest Contact Info) Description 03/02/2019 1:54 PM EDT - 03/02/2019 11:59 PM EDT Hospital Encounter [facility] [address] [place] [id number] Anya Diaz MD [facility] OBSTETRICS [place] [address] Discharge Disposition: Home Social History Tobacco Use [...] Sig Dispensed Refills Start Date End Date cholecalciferol, Vitamin D3, (CHOLECALCIFEROL, VITAMIN D3,) 2,000 unit Capsule Take 1,000 Units by mouth. levothyroxine (SYNTHROID) 75 mcg Tablet Take 1 tablet by mouth daily. 90 tablet 1 12/04/2018 11/11/2019 vitamin with [id number] Tablet Take by mouth. 11/11/2019 documented as of this encounter Plan of Treatment Not on file documented as of this encounter Visit Diagnoses Not on filedocumented in this encounter Care Teams Supervisor Of Research Relationship Specialty Start Date End Date Susan Alvarez APRN [address] [place] [address] PCP - General Family Medicine 07/16/18 11/10/19 documented as of this encounter
--- OUTSIDE RECORDS SUMMARY | 2024-09-24 13:44 | XMS_ITS | Encounter Summary ---
Author Organization [facility] [place] [address] Care Team Providers Care Allergist Name Role Phone Susan Alvarez APRN Primary Care Provider + Encounter Details Date Type Department Care Team (Late st Contact Info) Description 01/10/2019 Telephone Obstetrics [place] [phone] Anya Diaz MD [facility] DR OBSTETRICS [place] [address] Social History Tobacco Use Types Packs/Day Years [...] encounter Miscellaneous Notes * Telephone Encounter - Anya Diaz MD - 01/10/2019 2:41 PM EST I called the patient with the information from the transfusion medicine testing. She has HLA antibodies but is not predicted to have severe enough thrombocytopenia to risk intracranial bleeding. Anya Diaz MD documented in this encounter Plan of Treatment Not on file documented as of this encounter Visit Diagnoses Not on filedocumented in this encounter Care Teams Allergist Relationship Specialty Start Date End Date Susan Alvarez APRN [address] [place] [address] PCP - General Family Medicine 07/16/18 11/10/19 documented as of this encounter
--- OUTSIDE RECORDS SUMMARY | 2024-09-24 13:44 | XMS_ITS | Encounter Summary ---
[place] [address] Care Team Providers Care Certified Orthotist Practice Manager Name Role Phone Susan Alvarez APRN Primary Care Provider + Encounter Details Date Type Department Care Team (Late st Contact Info) Description 07/18/2018 9:45 AM EDT Laboratory Appointment Lab [address] [place] [phone] Social History Tobacco Use Types Packs/Day Years Used Date Smoking Tobacco: Never Assessed Sex and Gender Information Value Date Recorded Sex Assigned at Not on file Gender Identity Not on file Sexual Orientation Not on file documented as of this encounter Plan of Treatment Not on file documented as of this encounter Procedures Procedure Name Priority Date/Time Associated Diagnosis Comments INTEGRATED SCREENING 1 Routine 07/18/2018 9:48 AM EDT documented in this encounter Results * Integrated Screening 1 (07/18/2018 9:48 AM EDT) Pathologist [facility] Intergrated Screening Part 1 ([place]) See Note [facility] Comment: Part 1 of the Integrated Screen was drawn. ??For results of the Integrated Screen a second serum sample drawn at 15-21 weeks gestation is required. Test performed by [facility], [address] [place] [id number] Blood specimen (specimen) No Charge / Unknown 07/18/2018 9:48 AM EDT 07/18/2018 3:24 PM EDT Narrative Resulting Agency Comment Spec In Lab Anea G Lelong CNM LAB SEND OUT ORDERAB LES [facility] [place] [address] documented in this encounter Visit Diagnoses Not on filedocumented in this encounter Care Teams Certified Orthotist Practice Manager Relationship Specialty Start Date End Date Susan Alvarez APRN [address] [place] [address] PCP - General Family Medicine 07/16/18 11/10/19 documented as of this encounter
--- OUTSIDE RECORDS SUMMARY | 2024-09-24 13:44 | XMS_ITS | Encounter Summary ---
[place] [address] Care Team Providers Care Flanger Name Role Phone Susan Alvarez APRN Primary Care Provider + Reason for Visit * Reason Onset Date Comments Results 01/02/2019 Encounter Details Date Type Department Care Team ([facility] st Contact Info) Description 01/02/2019 Telephone Obstetrics [place] [phone] Diana Jones RN Results Social History Tobacco Use Types Packs/Day Years [...] Encounter - Diana Jones RN - 01/02/2019 8:14 AM EST Asha called yesterday to see if the specialty lab results were completed. Dr. Diaz was asked to interpret all available results and there are still tests that are not completed. Once done, Dr. Diaz will give her a call. Asha is fine with this information. documented in this encounter Plan of Treatment Not on file documented as of this encounter Visit Diagnoses Not on filedocumented in this encounter Care Teams Flanger Relationship Specialty Start Date End Date Susan Alvarez APRN [address] [place] [address] PCP - General Family Medicine 07/16/18 11/10/19 documented as of this encounter
--- OUTSIDE RECORDS SUMMARY | 2024-09-24 13:44 | XMS_ITS | Encounter Summary ---
[place] [address] Care Team Providers Care Economic Development Manager Name Role Phone Susan Alvarez APRN Primary Care Provider + Encounter Details Date Type Department Care Team (Latest Contact Info) Description 08/15/2018 12:25 PM EDT Laboratory Appointment Lab [address] [place] [phone] Encounter for screening of mother Social History [...] Priority Date/Time Associated Diagnosis Comments INTEGRATED SCREENING 2 Routine 08/15/2018 12:37 PM EDT Encounter for screening of mother documented in this encounter Results * Integrated Screening 2 (08/15/2018 12:37 PM EDT) [facility] Intergrated Screening Part 2 ([place]) See Scan Report [facility] Comment:Test performed by [facility], [address] [place] [address] Blood specimen (specimen) 08/15/2018 12:37 PM EDT 08/15/2018 3:21 PM EDT Narrative Resulting Agency Comment Spec In Lab Anya Diaz MD LAB SEND OUT ORDERAB LES [facility] [place] [address] documented in this encounter Visit Diagnoses Diagnosis Encounter for screening of mother Unspecified screening documented in this encounter Care Teams Economic Development Manager Relationship Specialty Start Date End Date Susan Alvarez APRN [address] [place] [address] PCP - General Family Medicine 07/16/18 11/10/19 documented as of this encounter
--- OUTSIDE RECORDS SUMMARY | 2024-09-24 13:44 | XMS_ITS | Encounter Summary ---
Author [facility] [place] [address] Care Team Providers Care Rn Advanced Name Role Phone Susan Alvarez APRN Primary Care Provider + Encounter Details Date Type Department Care Team (Latest Contact Info) Description 01/09/2019 Encounter Social History Tobacco Use Types Packs/Day [...] * Note - Tamera Phillips RN - 01/09/2019 1:55 PM EST This note was copied from a baby's chart. I touched base with mom today. She was excited to report the baby is latching well in the laid backposition and appears to be transferring more milk. Mom is aware support is available today if needed. documented in this encounter Plan of Treatment Not on file documented as of this encounter Visit Diagnoses Not on filedocumented in this encounter Care Teams Rn Advanced Relationship Specialty Start Date End Date Susan Alvarez APRN [address] [place] [address] PCP - General Family Medicine 07/16/18 11/10/19 documented as of this encounter
--- OUTSIDE RECORDS SUMMARY | 2024-09-24 13:44 | XMS_ITS | Encounter Summary ---
Author Organization [facility] [place] [address] Care Team Providers Care Budget Record Clerk Name Role Phone Susan Alvarez APRN Primary Care Provider + Encounter Details Date Type Department Care Team (Latest Contact Info) Description 01/10/2019 Encounter Social History Tobacco Use Types Packs/Day [...] * Note - Tamera Phillips RN - 01/10/2019 1:24 PM EST This note was copied from a baby's chart. Mom feels breast feeding is going well. She states the baby latches well onto a nipple shield. She feels he is transferring milk better. Mom asked for a pre and post weight for the 1200 feeding. Per mom the baby has taken about 35 cc's from a bottle two hours previous. This session he latched and transferred about 20 grams post weightafter ~ 10 minutes of breast feeding. Per mom the baby was breast feeding well for ~ 7 minutes. [facility] did about 3 minutes of 4 sucks per burst with an occasional swallow. He was not very vigorous and his sucks were mostly non nutritive. I suggested to mom when he gets in to a pattern likewe were observing it would best to remove him and attempt to wake him more with a burp. I suggestedshe then bring him back to the breast more awake and vigorous. In addition, I suggested mom do morebreast compression while the baby is latched to promote increased transfer. Mom states she understands. Baby will remain ad trace and mom will feed on demand. It is expected baby will breast feed 8-12 times in a 24 hour day. documented in this encounter Plan of Treatment Not on file documented as of this encounter Visit Diagnoses Not on filedocumented in this encounter Care Teams Budget Record Clerk Relationship Specialty Start Date End Date Susan Alvarez APRN [address] [place] [address] PCP - General Family Medicine 07/16/18 11/10/19 documented as of this encounter
--- OUTSIDE RECORDS SUMMARY | 2024-09-24 13:44 | XMS_ITS | Encounter Summary ---
[facility] [place] [address] Care Team Providers Care Dependency Case Manager Name Role Phone Suasn Alvarez APRN Primary Care Provider + Reason for Visit * Reason Comments Non-stress Test * Auth/Cert Specialty Diagnoses / Procedures Referred By Contac t Referred To Contact Diagnoses affected by growth restriction IUGR Procedures DELIVERY Referral ID Status Reason Start Date Expiration Date Visits Re quested Visits Authorized [id number] 1 1 Encounter Details Date Type Department Care Team (Latest Contact Info) Description 11/27/2018 12:41 PM EST - 11/30/2018 11:47 AM EST Hospital Encounter Hematology [place] [phone] Jose Yang MD [facility] [address] OBSTET[place] [place] [address] jaundice Discharge Disposition: Home Social History Tobacco Use [...] Sign Reading Time Taken Comments Blood Pressure 110/70 11/30/2018 5:11 AM EST Pulse 76 11/30/2018 5:11 AM EST Temperature 36.7 ??C (98.1 ??F) 11/30/2018 5:11 AM ES T Respiratory Rate 18 11/30/2018 5:11 AM EST Oxygen Saturation 97% 11/30/2018 5:11 AM EST Inhaled Oxygen Concentration - - [...] Asha Ospina Patient Age: 28 y.o. Language: Swedish Race: White Ethnicity: Not nor Admit date: 11/27/2018 Discharge date and time: 11/30/2018 Attending Physician: Moira Yang MD Discharge Physician: Moira Yang MD Care Provider: [facility] Referring Hospital: [facility] Follow-up Recommendations for Providers: - BP check on POD#7 - 6 week visit Inpatient Provider Contact Information: [facility] Department, Discharge Diagnoses (Hospital Problems) and Secondary [...] ?? HPI: Patient presents in transport from [facility] for surveillance. She received a course of [...] uncomplicated primary low transverse section. Viable male . APGARSof 6 and 8. Weight of 1130g. [...] for a blood pressure check in the [facility] office and was recommended to have a [...] Information for the patient's : Ebony Ospina [[id number]] INFORMATION Ebony Ospina 11/27/2018 4:31 PM by Lower Segment Transverse Sex: male Gestational Age: 31w6d Horse Shoe Measurements: Weight: 2 lb 7.9 oz (1130 [...] to schedule) - In six weeks at [facility] or with your care provider - you [...] Depression Contact Numbers: If you see an stator connector call: [phone] 9 am - 5 pm, after 5 pm If you see a lawyer real estate call: [phone] all hours If you were transferred to our institution for delivery and cannot reach your local OB provider, call the stator connector numbers. General Instructions Nursing Inpatient Progress C [...] the OB Clinic. Call your doctor or lawyer real estate for: ??? Seizure (call 911) ??? Headache [...] prior to you follow up appointment. Your [facility] Provider can be reached during office hours at ??? Midwives ??? Obstetricians ??? Services AFTER OFFICE HOURS for the stator connector or lawyer real estate tong hooker Discharge References/Attachments None documented in this encounter [...] the OB Clinic. Call your doctor or lawyer real estate for: ??? Seizure (call 911) ??? Headache [...] prior to you follow up appointment. Your [facility] Provider can be reached during office hours at ??? Midwives ??? Obstetricians ??? Services AFTER OFFICE HOURS for the stator connector or lawyer real estate tong hooker * Patient Instructions* Shelly Gauthier - 11/30/2018 9:04 AM EST Images from the original note were not included. Patient Instructions Follow-up: - blood pressure check on Monday 12/04 (you will receive a call to schedule) - In six weeks at [facility] or with your care provider - you [...] Depression Contact Numbers: If you see an stator connector call: [phone] 9 am - 5 pm, after 5 pm If you see a lawyer real estate call: [phone] all hours If you were transferred to our institution for delivery and cannot reach your local OB provider, call the stator connector numbers. documented in this encounter Medications at [...] AVS after reading Call your doctor or lawyer real estate for: depression occurs in large percentage of [...] Extremities: nontender, no edema. Labs: Recent Labs 11/28/ 0411 11/27/18 1515 WBC 17.4* 12.8* HGB 12.4 12.7 HCT 35.3* 36.5 PLATELET 245 289 Recent Labs // 1515 CREATININE 0.56* Assessment: POD#3. Patient doing well without issues. Postoperative hemoglobin appropriate and consistent with estimated blood loss. Discussed contraceptive options in depth; she would like the minipill. Otherwise no issues; appropriate for discharge today. Other Medical Issues/Concerns: ?? RH negative status: Infant A neg, Rhogam not indicated ?? Hypothyroidism: [...] good post-operative progress. I agree with Dr. Gauthier's assessment and plan as documented above. We [...] full code, no AD on file at [facility] ?? Current Coping/Education/Information Needs: Parents are coping well, they will be staying at a local hotel thru the weekend, and switch to [employer]. ?? Current Functional Ability:full diet, ambulating well. ?? Home Environment: Parents live in [place] ?? Social & Family Supports/Community Resources: Good family support near them now. Both sets of GP live in [place]. ?? Behavioral Health History: none ?? 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 ?? Health/Prescription Coverage: Primary Insurance: [employer] [place] Secondary Insurance: N/A Prescription Coverage: as above Preferred Pharmacy: [facility] in [facility]. Other: none ?? Primary Care Provider: Susan Alvarez, HEALTH ADMINISTRATION TEACHER [phone] ?? Patient/Caregiver Goals of Treatment: d/c on [...] care planning. ?? WILLIAN STAPLETON RN Pager: [phone] ?? * Stephanie Garza MD - 11/29/2018 7:00 AM EST Delivery Note Patient ID: Asha [...] ?? Minipill for contraception ?? Pumping for nutrition without concerns ?? Ferrous sulfate for [...] Asha, given a PIS breast pump. The [facility] will prior authorize the symphony pump. I spoke with Silvia Rojas, , & gave her an update on the baby & MOB. * Storm Royal MD - 11/28/2018 1:47 PM EST Delivery Note Patient ID: Asha Ospina is a 28 y.o. year old who is postop day #1 after Primary section at 31w6d for NRFHT remote from delivery and growth restriction. S: The patient complains of mild abdominal pain. Pain is well controlled. for nutrition without difficulty. Ambulating without weakness/dizziness, tolerating [...] ?? Minipill for contraception ?? BF for nutrition without concerns ?? Ferrous sulfate for [...] restriction. HPI: Patient presents in transport from [facility] for surveillance. She received a course of [...] minimal, Accels: no, Decels: variable and late, Mccaulley: 1 contraction noted Category: II Assessment & [...] patient was seen and discussed with Dr. Rivera, Attending S[employer]IOR FIN[facility]CIAL. STEPHANIE GARZA MD 11/27/2018 Associated attestation - Addison Rivera MD - 11/27/2018 5:45 PM EST I saw and evaluated Asha with Dr Garza. I have read and agree with her history and physical exam above. Asha is a 28 yo @ 31+6 wks EGA transferred from [facility] for non- reassuring antepartum testing in setting [...] Screen results. Indication / Diagnosis: Ebony Ospina ([id number]) with thrombocytopenia History: Ebony Ospina is a [...] HPA-1a antigen [place] [facility] [place] antibodies to this [...] to clarify maternal antibody status. Please order [facility]. Send Out to [facility], test code 5303, initial testing of [...] directly with any questions. Janessa Bales MD Flatwork Finisher, Transfusion Medicine Service After School Caregiver, Blood Bank 12/11/2018 Pager [phone] * Plan of Care - Ximena Castellanos [...] weight loss: 0% MATERNAL INFO: Asha Ospina [id number] 1990 G 1 P 1 Significant History: Previous experience: None--first-time mom Breast Surgery: No Breast Changes During : Yes Breast Exam : Size: Large Shape: Round Venous Pattern: Within Normal Limits Milk Production: Colostral Phase Normal Has pumped 5 times since delivery yesterday at 1630. Obtaining small amounts Soft Filling Full Nipple Exam : Flat Short-shafted Color: [place], darker face of nipple Compressible: Yes Trauma: None visible Nipple Care Management: [place] oil for pumping OBSERVATION: ASSESSMENT: In isolette on CPAP in RA PATIENT EDUCATION AND RECOMMENDATIONS: Pump at least 8-10 times per 24 hours and record in pumping log provided Breast massage and hand expression before and during pumping Brief heat prior to pumping and ice packs after pumping X 48 hours [place] oil to nipples prior to pumping Frequent and prolonged maternal-infant skin to skin contact Close support and follow up Pamphlets Provided Colostrum swabbing Providing breastmilk for your in the intensive Care Nursery Your Premature Infant 30 minutes were spent with this family, providing assessment, assistance, education, and support. Mother voices understanding of education and recommendations. Kami Woody RN, IBCLC [facility] Services * Med Student Progress Note - [...] levothyroxine 75 mcg daily. 4. Breast-feeding for infant nutrition with no concerns; patient planning to [...] days prior to transport. On arrival at [facility], spontaneous variable decelerations were noted, and BPP [...] Information for the patient's : Ebony Ospina [[id number]] DELIVERY SUMMARY FOR Ebony Ospina (please note [...] Combined est. blood loss (mL): 500 Delivery () Delivery Date: 11/27/18 Delivery Date: 4:31:00 PM Sex: Male Presentation: Breech Attempted ?: No Delivery Type: Delivery Type (Specific): Lower Segment Transverse Major Indications - : non-reassuring state Shoulder Dystocia Shoulder dystocia present?: No Delivery Information Delivery Location: [place] Delivering Clinician: Addison Rivera MD ICN Staff Present: Yes Other Personnel: Provider Role Renetta King strapping machine tender Nurse Addison Rivera MD Automotive Parts Manager Ximena Mahoney RN Charge Nurse Stephanie Garza [...] MCPHERSON APRN Resuscitation Method: PPV Resuscitation Comment: Infant brought to warmer, dried and stimulated, and given PPV starting at 30% FiO2 titrated up to 40% FiO2 with good response. Transitioned to PEEP without breaths at 3MOL. Infant placed on FP prongs with CPAP 6. FOB at bedside, touched infant's hand. Maternal Horse Shoe Feeding and Skin to Skin Reason skin to skin not initiated: Horse Shoe Acuity Medications No data filed Measurements Weight: 1130 g Placenta Date and Time: 11/27/2018 4:33:34 PM Removal: Manual Removal Appearance: Intact Labor Length No data filed MD ADDISON Baker MD * Op Note - Addison Rivera MD - 11/27/2018 5:36 PM EST [facility] Operative Note ?? Patient Name: Asha Ospina : [id number] MR#: [id number] ?? Case Date: 11/27/2018 ?? Surgeon: Surgeon(s) and Role: * Addison Rivera MD - Primary * Stephanie Garza MD - Resident-Head Neck Surgeon ?? Preoperative diagnosis: Non-reassuring antepartum testing, IUGR, malpresentation, 31+6 wks EGA ?? Postoperative diagnosis: Non-reassuring antepartum testing, IUGR, malpresentation, 31+6 wks EGA ?? Procedure(s) (LRB): @ DELIVERY (WRVU 16.13) (Bilateral) Primary low transverse section ?? [...] of the head. Live born premature male was delivered. The cord was doubly clamped [...] clots with gentle fundalmassage. The patient and infant tolerated the procedure well and were in [...] Operative Note Patient Name: Asha Ospina : [id number] MR#: [id number] Case Date: 11/27/2018 Surgeon: Surgeon(s) and Role: * Addison Rivera MD - Primary * Stephanie Garza MD - Resident-Head Neck Surgeon Preoperative diagnosis: Non-reassuring antepartum testing, IUGR, 31+6 wks EGA Postoperative diagnosis: Non-reassuring antepartum testing, IUGR, 31+6 wks EGA Procedure(s) (LRB): @ DELIVERY (WRVU 16.13) (Bilateral) , LST Anesthesia: Spinal Findings: Variable decelerations in OR prior to skin prep. Sonido breech , spontaneous respirations were slightly delayed, so cord [...] 11/27/2018 3:15 PM EST TYPE AND SCREEN ([facility]ITTANY) Routine 11/27/2018 3:15 PM EST ASPARTATE AMINOTRANSFERASE Routine 11/27/2018 3:15 PM EST LACTATE DEHYDROGENASE Routine 11/27/2018 3:15 PM EST documented in this encounter Results * Lavender Tube HOLD (11/28/2018 4:11 AM EST) Lavender Hold Sample in lab. [facility] Blood specimen (specimen) Venous Draw / Unknown 11/28/2018 4:11 AM EST 11/30/2018 3:56 PM EST Ursula Matthew MD HEMATOLOGY ORDERABLE S [facility] [place] [address] * (ABNORMAL) Differential, Automated (11/28/2018 4:11 AM EST) Neutrophil % 75.0 % [facility] Neutrophil Absolute 13.00(H) 1.70 - 6.10 x10(3)/mc L [facility] Lymph % 15.5 % [facility] Lymphocytes Abs 2.7 0.9 - 3.2 x10(3)/mc L [facility] Monocyte % 8.3 % [facility] Monocyte Abs 1.4(H) 0.3 - 0.9 x10(3)/mc L [facility] Eos % 0.2 % [facility] Eosinophils Abs 0.0 0.0 - 0.4 x10(3)/mc L [facility] Basophil % 0.2 % [facility] Baso Absolute 0.0 0.0 - 0.1 x10(3)/mc L [facility] Immature Gran % 0.80 % [facility] Comment: Immature granulocytes(IG's)percentage and absolute count will include metamyelocytes, myelocytes, and promyelocytes. Blood smears from CBCs yielding IG's will be scanned manually for concordance. If this scan disagrees with the automated IG or if promyelocytes are noted, a manual differential will be performed. Immature Gran Absolute 0.14(H) 0.00 - 0.04 x10(3)/mc L [facility] Blood specimen (specimen) 11/28/2018 4:11 AM EST 11/28/2018 4:24 AM EST Narrative Resulting Agency Comment Spec In Lab Stephanie Garza MD HEMATOLOGY ORDERABLE S [facility] [place] [address] * (ABNORMAL) Hemogram (11/28/2018 4:11 AM EST) White Blood Cell 17.4(H) 4.0 - 9.5 x10(3)/mc L [facility] Red Blood Cell 3.91(L) 4.00 - 5.21 x10(6)/mc L [facility] Hemoglobin 12.4 11.7 - 15.5 gm/dL [facility] Hematocrit 35.3(L) 35.7 - 45.8 % [facility] Mean Cell Volume 90.3 82.6 - 94.4 fL [facility] Mean Cell Hemoglobin 31.7 27.1 - 32.0 pg [facility] Mean Cell Hemoglobin Concentration 35.1(H) 31.7 - 35.0 gm/dL [facility] Platelet 245 145 - 357 x10(3)/mc L [facility] RDW Standard Deviation 39.9 37.0 - 46.0 fL [facility] RDW coefficient of variation 12.1 11.5 - 14.1 % [facility] Mean Platelet Volume 10.9 7.6 - 12.9 fL [facility] NRBC% auto 0.0 % [facility] NRBC Absolute 0.000 0.000 - 0.000 x10(3)/mc L [facility] Blood specimen (specimen) 11/28/2018 4:11 AM EST 11/28/2018 4:24 AM EST Narrative Resulting Agency Comment Spec In Lab Stephanie Garza MD HEMATOLOGY ORDERABLE S Performing Organization Address [facility] Co de Phone Number [facility] [place] [address] * Protein/Creatinine Ratio, urine (11/27/2018 5:17 PM EST) Creatinine, Urine 8 mg/dL [facility] Protein, Urine <6 0 - 12 mg/dL [facility] Protein / Creatinine Ratio, Urine <0.1 ratio [facility] Urine specimen (specimen) 11/27/2018 5:17 PM EST 11/27/2018 5:56 PM EST Narrative Resulting Agency Comment Spec In Lab E Moira Yang MD URINE ORDERABLES Performing Organization Address [facility] Co de Phone Number [facility] [place] [address] * Specimen to Pathology (11/27/2018 5:10 PM EST) AP Specimen 11/27/2018 5:10 PM EST 11/28/2018 10:04 AM EST Narrative [facility] - 11/28/2018 10:04 AM EST Specimen requisition ordered. ??Separate Pathology report to follow Resulting Agency Comment Spec In Lab E Moira Yang MD PATHOLOGY/CYTOLOG Y ORDERABLES Performing Organization Address [facility] Co de Phone Number [facility] [place] [address] * Surgical Pathology Report (11/27/2018 4:33 PM EST) Final Diagnosis [id number] ? Location: [facility]; [facility]; A The signing pathologist has (i) examined [...] Errol Fernández Verified: ??12/02/2018 ?Pathologist Performed at: ??-[facility] Dept. [place], [place], [place] CLINICAL INFORMATION Specimen Submitted: A - [...] Eccentric. Surface: ? - Color and Clarity: [place]-woo and semitransparent. Maternal Surface: Intact. ? - Lesions: Calcifications. The lesions occupy approximately 5% of the parenchymal volume. Parenchyma: Dark red spongy. Sections/Processing: Lasting Machine Operator Bed sections in 5 cassettes as follows: ? A1: ??Membrane roll ? A2: ??Proximal and distal cord ? A3-A5: ??Full thickness parenchyma ??skylar 12/02/2018 1:24 PM [facility] TISSUE SPECIMEN FROM PLACENTA / Unknown 11/27/2018 4:33 PM EST 11/27/2018 4:33 PM EST Stephanie Garza MD PATHOLOGY/CYTOLOGY O RDERABLES Performing Organization Address [facility] Co de Phone Number [facility] [place] [address] * Ab Comment (11/27/2018 3:15 PM EST) Ab Information INTERPRETATION : The patient's specimen shows the presence of the antibody anti-D. ??The patient is negative for the RhD antigen. The patient recently received RhIg; the reactivity in the specimen almost certainly represents passive anti-D. ??Unit selection is per routine. Benigno Ireland MD Transfusion Medicine Service 11/28/18 11:58 [facility] Comment: BENIGNO IRELAND Verified:11/28/18 Blood specimen (specimen) 11/27/2018 3:15 PM EST 11/27/2018 3:32 PM EST Narrative Resulting Agency Comment Spec In Lab Stephanie Garza MD BLOOD BANK LAB ORDER LILO Performing Organization Address [facility] Co de Phone Number [facility] [place] [address] * Antibody identification (11/27/2018 3:15 PM EST) Ab Identified Anti-D passive [facility] Blood specimen (specimen) 11/27/2018 3:15 PM EST 11/27/2018 3:32 PM EST Narrative Resulting Agency Comment Spec In Lab Stephanie Garza MD BLOOD BANK LAB ORDER LILO Performing Organization Address City/[facility]/ZIP Co de Phone Number [facility] [place] [address] * ABORH Recheck Status (11/27/2018 3:15 PM EST) ABORH Recheck Order Order Placed [facility] ABORH Type Recheck Complete [facility] Blood specimen (specimen) 11/27/2018 3:15 PM EST 11/27/2018 3:32 PM EST Narrative Resulting Agency Comment Spec In Lab Stephanie Garza MD BLOOD BANK LAB ORDER LILO Performing Organization Address City/[facility]/ZIP Co de Phone Number [facility] [place] [address] * Green Tube HOLD (11/27/2018 3:15 PM EST) Pathologist [facility] Green Hold Sample in lab. [facility] Blood specimen (specimen) Venous Draw / Unknown 11/27/2018 3:15 PM EST 11/27/2018 3:35 PM EST Stephanie Garza MD CHEMISTRY ORDERABLES Performing Organization Address [facility] Co de Phone Number [facility] [place] [address] * Antibody screen (11/27/2018 3:15 PM EST) Pathologist [facility] Ab Screen Interp Positive [facility] Expires at [id number] on: 11/30/2018 [facility] Blood specimen (specimen) 11/27/2018 3:15 PM EST 11/27/2018 3:32 PM EST Narrative Resulting Agency Comment Spec In Lab Stephanie Garza MD BLOOD BANK LAB ORDER LILO Performing Organization Address City/[facility]/ZIP Co de Phone Number [facility] [place] [address] * ABO/Rh Typing (11/27/2018 3:15 PM EST) ABORH Type B Neg [facility] Blood specimen (specimen) 11/27/2018 3:15 PM EST 11/27/2018 3:32 PM EST Narrative Resulting Agency Comment Spec In Lab Stephanie Garza MD BLOOD BANK LAB ORDER LILO Performing Organization Address City/[facility]/ZIP Co de Phone Number [facility] [place] [address] * (ABNORMAL) Differential, Automated (11/27/2018 3:15 PM EST) Neutrophil % 63.3 % [facility] Neutrophil Absolute 8.07(H) 1.70 - 6.10 x10(3)/mc L [facility] Lymph % 27.1 % [facility] Lymphocytes Abs 3.5(H) 0.9 - 3.2 x10(3)/ L [facility] Monocyte % 8.5 % [facility] Monocyte Abs 1.1(H) 0.3 - 0.9 x10(3)/ L [facility] Eos % 0.2 % [facility] Eosinophils Abs 0.0 0.0 - 0.4 x10(3)/[facility] Basophil % 0.3 % [facility] Baso Absolute 0.0 0.0 - 0.1 x10(3)/ L [facility] Immature Gran % 0.60 % [facility] Comment: Immature granulocytes(IG's)percentage and absolute count will include metamyelocytes, myelocytes, and promyelocytes. Blood smears from CBCs yielding IG's will be scanned manually for concordance. If this scan disagrees with the automated IG or if promyelocytes are noted, a manual differential will be performed. Immature Gran Absolute 0.08(H) 0.00 - 0.04 x10(3)/mc L [facility] Blood specimen (specimen) 11/27/2018 3:15 PM EST 11/27/2018 3:28 PM EST Narrative Resulting Agency Comment Spec In Lab Stephanie Garza MD HEMATOLOGY ORDERABLE S Performing Organization Address City/[facility]/ZIP Co de Phone Number [facility] [place] [address] * (ABNORMAL) Hemogram (11/27/2018 3:15 PM EST) White Blood Cell 12.8(H) 4.0 - 9.5 x10(3)/ L [facility] Red Blood Cell 4.03 4.00 - 5.21 x10(6)/mc L [facility] Hemoglobin 12.7 11.7 - 15.5 gm/dL [facility] Hematocrit 36.5 35.7 - 45.8 % [facility] Mean Cell Volume 90.6 82.6 - 94.4 fL [facility] Mean Cell Hemoglobin 31.5 27.1 - 32.0 pg [facility] Mean Cell Hemoglobin Concentration 34.8 31.7 - 35.0 gm/dL [facility] Platelet 289 145 - 357 x10(3)/[facility] RDW Standard Deviation 40.0 37.0 - 46.0 fL [facility] RDW coefficient of variation 12.0 11.5 - 14.1 % [facility] Mean Platelet Volume 11.4 7.6 - 12.9 fL [facility] NRBC% auto 0.0 % [facility] NRBC Absolute 0.000 0.000 - 0.000 x10(3)/ L [facility] Blood specimen (specimen) 11/27/2018 3:15 PM EST 11/27/2018 3:28 PM EST Narrative Resulting Agency Comment Spec In Lab Stephanie Garza MD HEMATOLOGY ORDERABLE S [facility] [place] [address] * Lactate Dehydrogenase (11/27/2018 3:15 PM EST) Lactate Dehydrogenase 176 110 - 220 unit/L [facility] [facility] Blood specimen (specimen) 11/27/2018 3:15 PM EST 11/27/2018 3:28 PM EST Narrative Resulting Agency Comment Spec In Lab E Moira Yang MD CHEMISTRY ORDERAB LES Performing Organization Address [facility] Co de Phone Number [facility] [place] [address] * (ABNORMAL) Creatinine (11/27/2018 3:15 PM EST) Creatinine 0.56(L) 0.70 - 1.20 mg/dL [facility] Est Glomerular Filtration Rate 125 >=60 mL/min/1.7 3 m?? [facility] Comment: The eGFR was calculated using the CKD-EPI equation. As with all creatinine based estimates of kidney function, eGFR values calculated with the CKD-EPI equation are not accurate in patients with acute kidney failure, extremes of body mass or the acutely ill. http://Tra[employer]/[facility] eGFR 145 >=60 mL/min/1.7 3 m?? [facility] Comment: The eGFR was calculated using the CKD-EPI equation. As with all creatinine based estimates of kidney function, eGFR values calculated with the CKD-EPI equation are not accurate in patients with acute kidney failure, extremes of body mass or the acutely ill. http://Trax[employer]/[facility] Blood specimen (specimen) 11/27/2018 3:15 PM EST 11/27/2018 3:28 PM EST Narrative Resulting Agency Comment Spec In Lab E Moira Yang MD CHEMISTRY ORDERAB LES Performing Organization Address City/[facility]/ZIP Co de Phone Number [facility] [place] [address] * Aspartate Aminotransferase (11/27/2018 3:15 PM EST) Aspartate Aminotransferase 17 0 - 30 unit/L [facility] Blood specimen (specimen) 11/27/2018 3:15 PM EST 11/27/2018 3:28 PM EST Narrative Resulting Agency Comment Spec In Lab E Moira Yang MD CHEMISTRY ORDERAB LES [facility] [place] [address] documented in this encounter Visit Diagnoses Diagnosis jaundice Unspecified and jaundice affected by growth restriction documented in this encounter Admitting Diagnoses Diagnosis affected [...] Given 11/29/2018 11:49 PM EST 650 mg citric acid-sodium citrate (BICITRA) oral solution 30 mL 30 mL, Oral, CHILD WATCH ATTENDANT TO O.R., 1 dose, On Sun11/27/18 at 1745, Routine Given 11/27/2018 3:57 PM EST 30 mLs docusate sodium (COLACE) capsule 100 mg 100 mg, Oral, 2 TIMES DAILY, First dose on Sun11/27/18 at 2100, Until Discontinued, Routine Given 11/29/2018 9:14 PM EST 100 mg Given 11/29/2018 8:47 AM EST 100 mg Given 11/28/2018 9:41 PM EST 100 mg glycerin-witch abran (TUCKS) 12.5-50 % pads [...] Given 11/29/2018 11:49 PM EST 600 mg ketorolac (TORADOL) injection 15 mg 15 mg, Intravenous, EVERY 6 HOURS, 5 doses, First dose on Sun11/27/18 at 1730, Last dose on Sun11/28/18 at 1700, Routine Given 11/28/2018 6:26 PM EST 15 mg Given 11/28/2018 12:06 PM EST 15 mg Given 11/28/2018 7:14 AM EST 15 mg lactated Ringers infusion 100 mL/hr, Intravenous, CONTINUOUS, Starting on Sun11/27/18 at 1500, Until Sun11/29/18 at 2132 New Bag 11/27/2018 2:55 PM EST 100 mL/hr 100 mL/hr lactated Ringers infusion 100 mL/hr, Intravenous, CONTINUOUS, Starting on Sun11/27/18 at 1745, Until Sun11/29/18 at 2132, Maximum 125 mL in one hour. New Bag 11/27/2018 5:35 PM EST 100 mL/hr 100 mL/hr levothyroxine (SYNTHROID) tablet 75 mcg 75 mcg, Oral, DAILY, First dose on Sun11/28/18 at 0845, Until Discontinued, Routine Given 11/30/2018 5:03 AM EST 75 mcg Given 11/29/2018 6:01 AM EST 75 mcg Given 11/28/2018 8:42 AM EST 75 mcg magnesium sulfate 20 g/500 mL infusion 1 g/hr (25 mL/hr), Intravenous, CONTINUOUS, Starting on Sun11/27/18 at 1500, Until Sun11/28/18 at 0214, Routine Rate/Dose Change 11/27/2018 4:04 PM EST 1 g/hr 25 mL/hr New Bag 11/27/2018 3:28 PM EST 1 g/hr 25 mL/hr magnesium sulfate Bolus from bag 4 g 4 g, Intravenous, ONCE, 1 dose, On Sun11/27/18 at 1515, Routine Bolus from Bag 11/27/2018 2:57 PM EST 4 g magnesium sulfate in water 20 gram/500 mL (4 %) infusion 1 dose, Starting on Sun11/27/18 at 1443, Until Sun11/27/18 at 1528, [place]: cabinet override oxyCODONE (ROXICODONE) immediate release tablet 5-10 mg [...] (MIRALAX) packet 17 g 17 g, Oral, DAILY, First dose on Sun11/27/18 at 1730, Until Discontinued, Routine Given 11/29/2018 8:47 AM EST 17 g Given 11/28/2018 12:05 PM EST 17 g polyethylene glycol (MIRALAX) packet 17 g 17 g, Oral, 2 TIMES DAILY PRN, Starting on Sun11/29/18 at 2145, Until 11/30/18 at 1349, Constipation, Routine Given 11/30/2018 9:18 AM EST 17 g Given 11/29/2018 9:52 PM EST 17 g senna-docusate (PERICOLACE) 8.6-50 mg per tablet 1 tablet 1 tablet, Oral, ONCE, 1 dose, On Sun11/29/18 at 2200, Routine Given 11/29/2018 9:52 PM EST 1 tablet simethicone (MYLICON) chewable tablet 80 mg 80 [...] Oral, 2 TIMES DAILY, First dose on 1/16/19 at 2100, Until Discontinued, Routine 1205 (Given - Provider: Rajwinder Robison RN)2141 (Given - Provider: Kortney Pozo, MARILEE) 0847 (Given - Provider: Adelaida Perez, MARILEE)2114 (Given - Provider: Ximena Castellanos, MARILEE) ibuprofen (ADVIL;MOTRIN) tablet 600 mg(Linked Group 1) 600 mg, Oral, EVERY 6 HOURS, First dose on Sun11/28/18 at 2300, Until Discontinued, - Begin after ketorolac discontinued. , Routine 0009 (Given - Provider: Kortney Pozo RN)0601 (Given - Provider: Ximena Castellanos, MARILEE)1243 (Given - Provider: Adelaida Perez, MARILEE)1900 (Given - Provider: Adelaida Perez, MARILEE)2349 (Given - Provider: Ximena Castellanos, MARILEE) 0503 (Given - Provider: Ximena Castellanos, MARILEE)1132 (Given - Provider: Juliana Olvera RN) ketorolac [...] Rajwinder Robison, MARILEE)1826 (Given - Provider: Rajwinder Robison RN) levothyroxine (SYNTHROID) tablet 75 mcg 75 mcg, Oral, DAILY, First dose on Sun11/28/18 at 0845, Until Discontinued, Routine 0842 (Given - Provider: Katlin Strong RN) 0601 (Given - Provider: Ximena Castellanos, MARILEE) 0503 (Given - Provider: Ximena Castellanos RN) polyethylene glycol (MIRALAX) packet 17 g (CANCELED) 17 g, Oral, DAILY, First dose on Sun11/27/18 at 1730, Until Discontinued, Routine 1205 (Given - Provider: Rajwinder Robison RN) 0847 (Given - Provider: Adelaida Perez, MARILEE) senna-docusate (PERICOLACE) 8.6-50 mg per tablet 1 tablet (COMPLETED) 1 tablet, Oral, ONCE, 1 dose, On Sun11/29/18 at 2200, Routine 2152 (Given - Provider: Ximena Castellanos, RN) sodium chloride 0.9 % flush 5 mL 5 mL, Intravenous, EVERY 12 HOURS, First dose on Sun11/27/18 at 1745, Until Discontinued, Routine 0545 (Given - Provider: Anya Juarez RN)1745 (Due) 0859 (Given - Provider: Adelaida Perez, MARILEE)2114 (Given - Provider: Ximena Castellanos, MARILEE) 0900 (Not Given - Provider: Juliana Olvera RN - Reason: Loss of access) PRN Medication [...] Robison, MARILEE) 0009 (Given - Provider: Kortney Pozo RN)0601 (Given - Provider: Ximena Castellanos, MARILEE)1242 (Given [...] Routine 2140 (Given - Provider: Kortney Pozo, RN) 2124 (Given - Provider: Ximena Castellanos, MARILEE) polyethylene glycol (MIRALAX) packet 17 g 17 g, Oral, 2 TIMES DAILY PRN, Starting on Sun11/29/18 at 2145, Until 11/30/18 at 1349, Constipation, Routine 2151 (Given - Provider: Ximena Castellanos RN) 09 (Given - Provider: Juliana Olvera RN) simethicone (MYLICON) chewable tablet 80 mg 80 mg, Oral, 4 TIMES DAILY PRN, Starting on Sun11/27/18 at 1709, Until 11/30/18 at 1349, Cramping, gas pain, Routine 1826 (Given - Provider: Rajwinder Robison, MARILEE) 1902 (Given - Provider: Adelaida Perez, MARILEE) sodium chloride 0.9 % flush 5-20 mL [...] Routine documented in this encounter Care Teams Dependency Case Manager Relationship Specialty Start Date End Date Susan Alvarez APRN [address] [place] [address] PCP - General Family Medicine 07/16/18 11/10/19 documented as of this encounter
--- OUTSIDE RECORDS SUMMARY | 2024-09-24 13:44 | XMS_ITS | Encounter Summary ---
Author Organization [facility] [place] [address] Care Team Providers Care Maintenance Supervisor Name Role Phone Susan Alvarez APRN Primary Care Provider + Encounter Details Date Type Department Care Team (Latest Contact Info) Description 12/30/2018 Encounter Social History Tobacco Use Types Packs/Day [...] * Note - Tamera Phillips RN - 12/30/2018 4:59 PM EST This note was copied from a baby's chart. I touched base with this family today. Per mom the baby seems sleepier over the last few days and not as vigorous at the breast. I explained this can be normal and he just may need more time to grow and to improve his stamina.. Mom has been doing a mix of bottles. He has been taking partial bottlesat night, but then during the day less interested in breast feeding. I suggested she just do NGT feedings at night and offer the breast when she is at the bedside. I encouraged her to continue to follow the baby's cues and reach out for support with positioning and latch as needed. documented in this encounter Plan of Treatment Not on file documented as of this encounter Visit Diagnoses Not on filedocumented in this encounter Care Teams Maintenance Supervisor Relationship Specialty Start Date End Date Susan Alvarez APRN [address] [place] [address] PCP - General Family Medicine 07/16/18 11/10/19 documented as of this encounter
--- OUTSIDE RECORDS SUMMARY | 2024-09-24 13:44 | XMS_ITS | Encounter Summary ---
Author Organization [place] [address] Care Team Providers Care Hatchery Attendant Name Role Phone Susan Alvarez APRN Primary Care Provider + Reason for Visit * Reason Onset Date Comments Questions 12/16/2018 Encounter Details Date Type Department Care Team (Late st Contact Info) Description 12/16/2018 Telephone Obstetrics [place] [phone] Diana Jones, RN Questions Social History Tobacco Use Types Packs/Day Years [...] Telephone Encounter - Diana Jones RN - 12/16/2018 10:13 AM EST One time episode of bright red blood. She is now 3 weeks ppt. Yesterday, she had a busy day and didmore stairs than usual. Since the one time increase of lochia, she has not needed to change her jonathan 3 hours and it is very light now. Assessment: variation of normal post bleeding likely r/t activity. Plan: will monitor further and call if she is soaking pads 1/hour x 2 hours. * Telephone Encounter - Diana Jones RN - 12/16/2018 10:12 AM EST ----- Message from Dedra Calvo sent at 12/16/2018 8:42 AM EST ----- Pt experiencing gush of bright red blood vaginally, wanted to know if normal or if she needs to be seen. Please call [phone] documented in this encounter Plan of Treatment Not on file documented as of this encounter Visit Diagnoses Not on filedocumented in this encounter Care Teams Hatchery Attendant Relationship Specialty Start Date End Date Susan Alvarez APRN [address] [place] [address] PCP - General Family Medicine 07/16/18 11/10/19 documented as of this encounter
--- OUTSIDE RECORDS SUMMARY | 2024-09-24 13:44 | XMS_ITS | Encounter Summary ---
Author Organization [facility] [place] [address] Care Team Providers Care Sociology Adjunct Instructor Name Role Phone Susan Alvarez APRN Primary Care Provider + Encounter Details Date Type Department Care Team (Latest Contact Info) Description 12/06/2018 Encounter Social History Tobacco Use Types Packs/Day [...] * Note - Tamera Phillips RN - 12/06/2018 8:04 PM EST This note was copied from a baby's chart. I touched base with this mom today. She states pumping continues to go well. She obtains ~800 cc mario 24 hour day. She denies pain or complications. We also discussed the progression towards ad trace feeding for a late infant. I discussed with mom is best for the baby if mom watch and wait for readiness and oral cues before attempting to breast feed. We discussed that baby???s tend to start to show more interest and sustain sucking patterns around 35-36 weeks and then only improve with their stamina, duration and abilities. We discussedthat each session and day will be different depending on the baby???s interest or energy. I explained the baby most likely will not be able to exclusively breast feed until she is closer to 37 week, but that all babies progress differently. Mom would like to exclusively breast feed and she understands/wants to stay in house when the bedside RN???s and providers tell her the baby is ready. Tamera Phillips RN, IBCLC [employer] [facility] Services documented in this encounter Plan of Treatment Not on file documented as of this encounter Visit Diagnoses Not on filedocumented in this encounter Care Teams Sociology Adjunct Instructor Relationship Specialty Start Date End Date Susan Alvarez APRN [address] [place] [address] PCP - General Family Medicine 07/16/18 11/10/19 documented as of this encounter
--- OUTSIDE RECORDS SUMMARY | 2024-09-24 13:44 | XMS_ITS | Encounter Summary ---
Author Organization [facility] [place] [address] Care Team Providers Care Payroll Clerk Name Role Phone Susan Alvarez APRN Primary Care Provider + Encounter Details Date Type Department Care Team (Late st Contact Info) Description 11/30/2018 Orders Only Obstetrics [place] [phone] Ursula Matthew MD [facility] [address] OBSTETRICS & [place] [address] jaundice Social History Tobacco Use Types Packs/Day Years Used Date Smoking Tobacco: Former Smokeless Tobacco: Never Alcohol Use Standard Drinks/Week Comments No 0 (1 standard drink = 0.6 oz pur e alcohol) Sex and Gender Information Value Date Recorded Sex Assigned at Not on file Gender Identity Not on file Sexual Orientation Not on file documented as of this encounter Progress Notes * Ursula Matthew - 11/30/2018 10:49 AM EST Called by ICN to request labs for patient as her infant has concern for thrombocytopenia. Per request, ordered CBC, HLA and HPA-1a screen. Mother in ICN at this time and they will inform her of whereto go for lab draw. Ursula Matthew MD 11/30/18 documented in this encounter Plan of Treatment Not on file documented as of this encounter Visit Diagnoses Diagnosis jaundice Unspecified and jaundice documented in this encounter Care Teams Payroll Clerk Relationship Specialty Start Date End Date Susan Alvarez APRN [address] [place] [address] PCP - General Family Medicine 07/16/18 11/10/19 documented as of this encounter
--- OUTSIDE RECORDS SUMMARY | 2024-09-24 13:44 | XMS_ITS | Encounter Summary ---
Author Organization [facility] [place] [address] Care Team Providers Care Scroll Assembler Name Role Phone Susan Alvarez APRN Primary Care Provider + Encounter Details Date Type Department Care Team (Latest Contact Info) Description 01/06/2019 Encounter Social History Tobacco Use Types Packs/Day [...] * Note - Kami Woody RN - 01/06/2019 11:00 AM EST This note was copied from a baby's chart. ORAL MOTOR EXAMINATION Oral Motor Examination/Function: Mouth: Small Jaw: Slightly Receding Lips: Normal Passively pulled in at times Gums: Normal Tongue: Cupped, able to extend past lips but back of tongue is humped up Frenulum: Not digitally assessed, suspect posterior restriction due to humping of tongue and lack of ability to transfer milk despite vigorous sucking with shield Palate: High Arch Observation: Position: Clutch/Football Left side Rooting: Sleepy at 1100 and active and engaged at 1400 Attachment: Adequate with both XS and small nipple shield at 1400 Tongue malposition at 1100 Refused at 1100 Milk Ejection Reflex: Prior to Attachment Swallow: Normal/Coordination Suck:Swallow Ratio: 5:1 with SNS and keeping milk in nipple shield by squeezing bulb of SNS Sucking Burst Pattern: Mostly non nutritive. Infant sucked on a gloved finger some and was actuallyable to get some milk from the SNS finger feeding but was less successful with the nipple shield Maternal Considerations : Mom is feeling frustrated, a little tearful. She really values Carl being able to breastfeed, but feels that they are not making much progress. Discussed that perhaps it was too soon for her to start spending the night until he is a little more successful during the day.Discussed judicious reintroduction of bottles at night but to not tax Carl so that he has energy for breast feeds during the day. Also talked with Mom about having speech evaluate Carl to see if they had any more suggestions which she is very excited about. On-going Concerns: Premature post menstrual age:37 4/7, SGA, small oral structures, some humping of back of tongue Has never transferred more than 5cc with pre and post weights. Today was able to transfer 14cc withSNS, but needed to actively put milk into shield, and he lost some from side of mouth Risk for feeding difficulties Monitor growth and nutrition closely Recommendations: Spoke with ISSA Navas about the need for Carl to feed at least every 3 hours, but thathe should be allowed to feed early if he is cuing. She will write consult order for Speech. Breast visits and practice as cues for readiness Frequent skin to skin contact and Kangaroo-Mother care Breastfeed as cues for readiness, otherwise tube feed Pump frequently at least 8-10 times per 24 hours after feeds and record in pumping log Kami Woody RN, IBCLC [facility] Services documented in this encounter Plan of Treatment Not on file documented as of this encounter Visit Diagnoses Not on filedocumented in this encounter Care Teams Scroll Assembler Relationship Specialty Start Date End Date Susan Alvarez APRN [address] [place] [address] PCP - General Family Medicine 07/16/18 11/10/19 documented as of this encounter
--- OUTSIDE RECORDS SUMMARY | 2024-09-24 13:44 | XMS_ITS | Encounter Summary ---
Author Organization [facility] [place] [address] Care Team Providers Care Musculoskeletal Physician Name Role Phone Susan Alvarez APRN Primary Care Provider + Encounter Details Date Type Department Care Team (Latest Contact Info) Description 01/30/2019 2:15 PM EDT - 01/30/2019 11:59 PM EDT Hospital Encounter [facility] [address] [place] [id number] Anya Diaz MD [facility] OBSTETRICS [place] [address] Discharge Disposition: Home Social History Tobacco Use [...] 90 tablet 1 12/04/2018 11/11/2019 vitamin with [id number] Tablet Take by mouth. 11/11/2019 documented as of this encounter Plan of Treatment Not on file documented as of this encounter Visit Diagnoses Not on filedocumented in this encounter Care Teams Musculoskeletal Physician Relationship Specialty Start Date End Date Susan Alvarez APRN [address] [place] [address] PCP - General Family Medicine 07/16/18 11/10/19 documented as of this encounter
--- OUTSIDE RECORDS SUMMARY | 2024-09-24 13:44 | XMS_ITS | Encounter Summary ---
Author Organization [facility] [place] [address] Care Team Providers Care Camp Advisor Name Role Phone Susan Alvarez APRN Primary Care Provider + Reason for Visit * Reason Comments Advice Only Encounter Details Date Type Department Care Team ([facility] st Contact Info) Description 12/20/2018 9:00 AM EST Office Visit Obstetrics [place] [phone] Anya Diaz MD [facility] DR OBSTETRICS [place] [address] thrombocytopenia; Hypothyroidism, unspecified type Social History Tobacco Use Types Packs/Day Years [...] Sign Reading Time Taken Comments Blood Pressure 120/78 12/20/2018 8:57 AM EST Pulse - - Temperature - - Respiratory Rate - - Oxygen Saturation - - Inhaled Oxygen Concentration - - Weight 62.8 kg (138 lb 8 oz) 12/20/2018 8:57 AM EST Height 162.6 cm (5' 4) 12/20/2018 8:57 AM EST Body Mass Index 23.77 12/20/2018 8:57 AM EST documented in this encounter Progress Notes * Anya Diaz MD - 12/20/2018 9:00 AM EST Maternal Medicine Consult Note Asha Ospina is a 28 y.o. seen in consultation at the request of Jose Luis Pagan MD for evaluation of possible platelet alloimmunization. The patient was delivered 3 weeks ago by for nonreassuring status in the setting of growth restriction and gestational hypertension. The placenta demonstrated accelerated maturation. There was no chorioamnionitis. The baby was found to have severe thrombocytopenia requiring transfusions. He has stabilized and has not had a recent transfusion. Initial maternal testing did not find evidence for alloimmunization. She needs followup studies for more rare antigen/antibodies. Record Review No additional issues Past Medical History: Diagnosis Date ??? Hypothyroidism diagnosed during Past Surgical History: Procedure Laterality Date ??? PRO DELIVERY ONLY Bilateral 11/27/2018 @ DELIVERY (WRVU 16.13) performed by Mey Rivera MD at [facility] OB History Para Term AB Living 1 1 0 1 0 1 SAB TAB Ectopic Multiple Live Births 0 0 0 0 1 # Outcome Date GA Lbr Chetan/2nd Weight Sex Delivery Anes PTL Lv 1 11/27/18 31w6d 1.13 kg (2 lb 7.9 oz) M LWR SEG ELIZABETH Spinal N CRYS Name: PETEY,BABY BOY Apgar1: 6 Apgar5: 8 A family history was obtained. There is no history of thrombocytopenia. 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 Denies illicit substance use or alcohol Denies tobacco use Current Outpatient Medications Medication Sig Dispense Refill ??? cholecalciferol, Vitamin D3, (CHOLECALCIFEROL, VITAMIN D3,) 2,000 unit Capsule Take by mouth. ??? levothyroxine (SYNTHROID) 75 mcg Tablet Take 1 tablet by mouth daily. 90 tablet 1 ??? vitamin with [id number] Tablet Take by mouth. No current facility-administered medications for this visit. No Known Allergies Physical Exam Most Recent Vitals: 12/20/18 0857 BP: 120/78 General: alert, well appearing, in no apparent distress Psychiatric: affect is appropriate, tearful Assessment and Recommendations: 28 y.o. with complicated by growth restriction and requirement for for testing. 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 The initial screen for common antibodies was not revealing. She will need additional testing which was ordered today. I explained the pathophysiology and manage ment. Unfortunately she has already had a 32 week delivery already with severe thrombocytopenia. Ifthis is alloimmunization she is at risk for having earlier thrombocytopenia and risk for intracranial hemorrhage. Treatment with IV Ig and high dose steroids can ameliorate the risk. We would likely recommend a late . We discussed the potential recommendation for blood sampling and the risks this entails. If alloimmunization is confirmed and the antigen determined, we could seeif it possible to test the father of the baby's genotype. If he is heterozygous, one could do CVS or amniocentesis to determine if the fetus might be affected. I raised the possibility of preimplantation diagnosis/screening but acknowledged that this might not be possible and is expensive. I will get back to her when her test results are back. Hypothyroidism. As her diagnosis was made during , it is possible she has subclinical hypothyroidism. Will send thyroid function tests today. She and her providers might want to try taking her off levothyroxine and retesting in a few months. Hx gestational hypertension. She will need low dose aspirin and baseline preeclampsia labs in a future . I appreciate the opportunity to be involved in this patient's care and am available if further questions should arise. I recommended that she sign up for the patient portal to be able to communicate with us. Anya Diaz MD 12/20/2018 Cc: Lin Wiggins CNM This was a 40 minute encounter 35 minutes of which was face to face consultation regarding the risks of and planning for and maternal care. documented in this encounter Plan of Treatment Not on file documented as of this encounter Results * T4 Total (12/23/2018 10:38 AM EST) T4 Total 9.2 5.1 - 10.8 mcg/dL [facility] Comment: Reference Range: [place] Cord Blood: ??6.9-14.4 mcg/dL Females: ??7.2-14.2 mcg/dL Pediatric ranges: ??Interpret with caution-ranges have not been verified Blood specimen (specimen) 12/23/2018 10:38 AM EST 12/23/2018 11:04 AM EST Narrative Resulting Agency Comment Spec In Lab Anya Diaz MD CHEMISTRY ORDERABLES Performing Organization Address City/[facility]/ZIP Co de Phone Number [facility] [place] [address] * Miscellaneous Lab request (12/23/2018 10:38 AM EST) Label Request received in lab. [facility] Blood specimen (specimen) 12/23/2018 10:38 AM EST 12/24/2018 7:02 AM EST Narrative Resulting Agency Comment Spec In Lab Anya Diaz MD LAB SEND OUT ORDERAB LES Performing Organization Address [facility] Co de Phone Number [facility] [place] [address] * (ABNORMAL) Thyroid peroxidase antibody (12/23/2018 10:38 AM EST) Thyroperoxidase Ab 307(H) <=34 IU/mL [facility] Blood specimen (specimen) 12/23/2018 10:38 AM EST 12/23/2018 1:28 PM EST Narrative Resulting Agency Comment Spec In Lab Anya Diaz MD IMMUNOLOGY ORDERABLE S Performing Organization Address [facility] Co de Phone Number [facility] [place] [address] * TSH (12/23/2018 10:38 AM EST) Thyroid Stimulating Hormone 0.64 0.27 - 4.20 mlU/ML [facility] Blood specimen (specimen) 12/23/2018 10:38 AM EST 12/23/2018 11:04 AM EST Narrative Resulting Agency Comment Spec In Lab Anya Diaz MD CHEMISTRY ORDERABLES Performing Organization Address City/[facility]/ZIP Co de Phone Number [facility] [place] [address] documented in this encounter Visit Diagnoses Diagnosis thrombocytopenia Transient thrombocytopenia Hypothyroidism, unspecified type documented in this encounter Care Teams Camp Advisor Relationship Specialty Start Date End Date Susan Alvarez APRN [address] [place] [address] PCP - General Family Medicine 07/16/18 11/10/19 documented as of this encounter
--- OUTSIDE RECORDS SUMMARY | 2024-09-24 13:44 | XMS_ITS | Encounter Summary ---
Author Organization [facility] [place] [address] Care Team Providers Care Right Of Way Worker Name Role Phone Susan Alvarez APRN Primary Care Provider + Encounter Details Date Type Department Care Team (Latest Contact Info) Description 12/23/2018 10:15 AM EST Laboratory Appointment Lab [address] [place] [phone] Hypothyroidism, unspecified type; thrombocytopenia Social History Tobacco Use Types Packs/Day Years [...] Procedure Name Priority Date/Time Associated Diagnosis Comments MISCELLANEOUS LAB REQUEST Routine 12/23/2018 10:38 AM EST thrombocytopenia MISC SENDOUT Routine 12/23/2018 10:38 AM EST THYROID PEROXIDASE ANTIBODY Routine 12/23/2018 10:38 AM EST Hypothyroidism, unspecified type TSH Routine 12/23/2018 10:38 AM EST Hypothyroidism, unspecified type T4 TOTAL Routine 12/23/2018 10:38 AM EST Hypothyroidism, unspecified type documented in this encounter Results * Misc Sendout (12/23/2018 10:38 AM EST) Misc Sendout See Note [facility] Comment: The ordered test is: Alloimmune Thrombocytopenia Test performed by: [facility]; [address] [place] [address] See Scanned Report. Blood specimen (specimen) Venous Draw / Unknown 12/23/2018 10:38 AM EST 12/24/2018 10:45 AM EST Anya Diaz MD LAB SEND OUT ORDERAB LES Performing Organization Address [facility]/ZIP Co de Phone Number [facility] [place] [address] * TSH (12/23/2018 10:38 AM EST) [facility] Thyroid Stimulating Hormone 0.64 0.27 - 4.20 mlU/ML [facility] Blood specimen (specimen) 12/23/2018 10:38 AM EST 12/23/2018 11:04 AM EST Narrative Resulting Agency Comment Spec In Lab Anya Diaz MD CHEMISTRY ORDERABLES Performing Organization Address [facility] Co de Phone Number [facility] [place] [address] * (ABNORMAL) Thyroid peroxidase antibody (12/23/2018 10:38 AM EST) [facility] Thyroperoxidase Ab 307(H) <=34 IU/mL [facility] Blood specimen (specimen) 12/23/2018 10:38 AM EST 12/23/2018 1:28 PM EST Narrative Resulting Agency Comment Spec In Lab Anya Diaz MD IMMUNOLOGY ORDERABLE S Performing Organization Address [facility] Co de Phone Number [facility] [place] [address] * Miscellaneous Lab request (12/23/2018 10:38 AM EST) Label Request received in lab. [facility] Blood specimen (specimen) 12/23/2018 10:38 AM EST 12/24/2018 7:02 AM EST Narrative Resulting Agency Comment Spec In Lab Anya Diaz MD LAB SEND OUT ORDERAB LES Performing Organization Address [facility] Co de Phone Number [facility] [place] [address] * T4 Total (12/23/2018 10:38 AM EST) T4 Total 9.2 5.1 - 10.8 mcg/dL [facility] Comment: Reference Range: [place] Cord Blood: ??6.9-14.4 mcg/dL Females: ??7.2-14.2 mcg/dL Pediatric ranges: ??Interpret with caution-ranges have not been verified Blood specimen (specimen) 12/23/2018 10:38 AM EST 12/23/2018 11:04 AM EST Narrative Resulting Agency Comment Spec In Lab Anya Diaz MD CHEMISTRY ORDERABLES Performing Organization Address [facility] Co de Phone Number [facility] [place] [address] documented in this encounter Visit Diagnoses Diagnosis Hypothyroidism, unspecified type thrombocytopenia Transient thrombocytopenia documented in this encounter Care Teams Right Of Way Worker Relationship Specialty Start Date End Date Susan Alvarez APRN [address] [place] [address] PCP - General Family Medicine 07/16/18 11/10/19 documented as of this encounter
--- OUTSIDE RECORDS SUMMARY | 2024-09-24 13:44 | XMS_ITS | Encounter Summary ---
Author Organization [facility] [place] [address] Care Team Providers Care Rn Spine Name Role Phone Susan Alvarez APRN Primary Care Provider + Encounter Details Date Type Department Care Team (Latest Contact Info) Description 12/13/2018 Encounter Social History Tobacco Use Types Packs/Day [...] * Note - Tamera Phillips RN - 12/13/2018 4:18 PM EST This note was copied from a baby's chart. I touched base with mom today. Per mom the white patch of film on her nipple has gone away. She feels it was skin and old milk. She states her nipples are still sore, but she does not think it is yeast. She is continuing to use the mothers' milk cream and feels it is helping. I encouraged her to cut back on minutes for a few sessions if she feels it helps with the pain and to decrease the suction. I will follow up with mom next week. documented in this encounter Plan of Treatment Not on file documented as of this encounter Visit Diagnoses Not on filedocumented in this encounter Care Teams Rn Spine Relationship Specialty Start Date End Date Susan Alvarez APRN [address] [place] [address] PCP - General Family Medicine 07/16/18 11/10/19 documented as of this encounter
--- OUTSIDE RECORDS SUMMARY | 2024-09-24 13:44 | XMS_ITS | Encounter Summary ---
[place] [address] Care Team Providers Care Alliance Manager Name Role Phone CynthiaSusan harris INEZ Primary Care Provider + Reason for Visit * Consultation (Routine) - Closed Specialty Diagnoses / Procedures Referred By Michael t Referred To Contact Obstetrics and Gynecology Procedures US OB NUCHAL TRANSLUCENCY Benedicto Singh CNM [address] [place] [address] [facility] [address] [place] [address] Referral ID Status Reason Start Date Expiration Date Visits Re quested Visits Authorized [id number] Closed 07/16/2018 07/16/2019 1 1 Encounter Details Date Type Department Care Team (Latest Contact Info) Description 07/18/2018 8:48 AM EDT - 07/18/2018 11:59 PM EDT Hospital [place] [phone] Benedicto Singh CNM [address] [place], [place] [id number] Encounter for nuchal translucency testing Discharge Disposition: Home Social History Tobacco Use Types Packs/Day Years Used Date Smoking Tobacco: Never Assessed Sex and Gender Information Value Date Recorded Sex Assigned at Not on file Gender Identity Not on file Sexual Orientation Not on file documented as of this encounter Plan of Treatment Not on file documented as of this encounter Procedures Procedure Name Priority Date/Time Associated Diagnosis Comments US OB NUCHAL TRANSLUCENCY Routine 07/18/2018 9:31 AM EDT Encounter for nuchal translucency testing documented in this encounter Results * US OB Nuchal Translucency (07/18/2018 9:31 AM EDT) Anatomical Region Laterality Modality Pelvis, Abdomen Ultrasound 07/18/2018 9:25 AM EDT Impressions 07/18/2018 9:41 AM EDT 1st Trimester NT Summary Single living intrauterine with a gestational age of 13w 0d based on LMP ??(04/18/18) The crown rump length corresponds to a gestational age of 12w 6d. Nuchal translucency examination was performed and measures 1.1 mm. ?Jenn Blanco MD Electronically Signed Final Report ?? 07/18/2018 09:41 am Narrative 07/18/2018 9:41 AM EDT OBSTETRICS REPORT ? (Signed Final 07/18/2018 09:41 am) PATIENT INFO: ID #: ? [id number] ?: ??[birth year] (28 yrs) Name: ? MALU ANGELO ?Visit Date: 07/18/2018 09:25 am PERFORMED BY: Performed By: ? Kalpesh RESENDIZ, ??Faye Attending: ?Francis SERVIN, Jenn Saavedra Referred By: ?BENEDICTO SINGH Location: ? [place] [facility]) PROVIDED: ??UNT - Nuchal Translucency - First Trimester ? [address]82 ??Screening - [id number] INDICATIONS: ??13 weeks gestation of ?Z3A.13 ??NUCHAL OB HISTORY: Blood ?Height: ??5'2 ?Weight (lb): 116 ? BMI: ??21.21 Type: EVALUATION: Num Of Fetuses: ? 1 Preg. Location: ? Intrauterine Gest. Sac: ?Visualized Pole: ? Visualized Heart ? 155 Rate(bpm): Cardiac Activity: ?? Observed, normal rhythm Presentation: ? Variable Placenta: ? Too early to evaluate Amniotic Fluid NILAY FV: ?Too early to evaluate --------- BIOMETRY: --------- CRL: ?65.2 ??mm ? G.Age: ?? 12w 6d ?RODRIGO: ?? 01/24/19 NT: ?1.1 ??mm GESTATIONAL AGE: LMP: ? 13w 0d ?Date: ??04/18/18 ? RODRIGO: ?? 01/23/19 Best: ?13w 0d ?? Det. By: ??LMP ??(04/18/18) ?RODRIGO: ?? 01/23/19 CERVIX UTERUS ADNEXA: Left Ovary Size(cm) ? 1.7 ??x ?? 1.1 ?x ??1.4 ? Vol(ml): 1.4 Visualized, Right Ovary Size(cm) ? 3.6 ??x ?? 1.7 ?x ??1.9 ? Vol(ml): 6.1 Visualized, hemorrhagic corpus lutuem measuring 1.9 x 1.5 x 1.3 cm. Cul De Sac: ?? No fluid seen Procedure Note Jenn Blanco MD - 07/18/2018 OBSTETRICS REPORT (Signed Final 07/18/2018 09:41 am) PATIENT INFO: ID #: [id number] : [birth year] (28 yrs) Name: MALU ANGELO Visit Date: 07/18/2018 09:25 am PERFORMED BY: Performed By: Faye Posey RDMS Attending: Jenn Blanco MD Referred By: BENEDICTO SINGH Location: [place] [facility]) PROVIDED: UNT - Nuchal Translucency - First Trimester 30736 Screening - [id number] INDICATIONS: 13 weeks gestation of Z3A.13 NUCHAL OB HISTORY: Blood Height: 5'2 Weight (lb): 116 BMI: 21.21 Type: EVALUATION: Num Of Fetuses: 1 Preg. Location: Intrauterine Gest. Sac: Visualized Pole: Visualized Heart 155 Rate(bpm): Cardiac Activity: Observed, normal rhythm Presentation: Variable Placenta: Too early to evaluate Amniotic Fluid NILAY FV: Too early to evaluate --------- BIOMETRY: --------- CRL: 65.2 mm G.Age: 12w 6d RODRIGO: 01/24/19 NT: 1.1 mm GESTATIONAL AGE: LMP: 13w 0d Date: 04/18/18 RODRIGO: 01/23/19 Best: 13w 0d Det. By: LMP (04/18/18) RODRIGO: 01/23/19 CERVIX UTERUS ADNEXA: Left Ovary Size(cm) 1.7 x 1.1 x 1.4 Vol(ml): 1.4 Visualized, Right Ovary Size(cm) 3.6 x 1.7 x 1.9 Vol(ml): 6.1 Visualized, hemorrhagic corpus lutuem measuring 1.9 x 1.5 x 1.3 cm. Cul De Sac: No fluid seen IMPRESSION 1st Trimester NT Summary Single living intrauterine with a gestational age of 13w 0d based on LMP (04/18/18) The crown rump length corresponds to a gestational age of 12w 6d. Nuchal translucency examination was performed and measures 1.1 mm. Jenn Blanco MD Electronically Signed Final Report 07/18/2018 09:41 am Benedicto Singh CNM IMG US OB ORDERABLES documented in this encounter Visit Diagnoses Diagnosis Encounter for nuchal translucency testing Other specified screening documented in this encounter Care Teams Alliance Manager Relationship Specialty Start Date End Date Susan Alvarez APRN [address] [place] [address] PCP - General Family Medicine 07/16/18 11/10/19 documented as of this encounter
--- OUTSIDE RECORDS SUMMARY | 2024-09-24 13:44 | XMS_ITS | Encounter Summary ---
Author Organization [facility] [place] [address] Care Team Providers Care Natural Resource Officer Name Role Phone Susan Alvarez APRN Primary Care Provider + Encounter Details Date Type Department Care Team (Late st Contact Info) Description 01/07/2019 [place] [address] Janessa Villarreal MD [facility] [place] [address] Social History Tobacco Use Types Packs/Day Years Used Date Smoking Tobacco: Former Smokeless Tobacco: Never Alcohol Use Standard Drinks/Week Comments No 0 (1 standard drink = 0.6 oz pur e alcohol) Sex and Gender Information Value Date Recorded Sex Assigned at Not on file Gender Identity Not on file Sexual Orientation Not on file documented as of this encounter Progress Notes * Janessa Villarreal MD - 01/07/2019 3:18 PM EST * Janessa Villarreal MD - 01/07/2019 3:18 PM EST [facility] Laboratory Consult Note Date of Consultation: 01/07/2019 Reason for Consult:: We are reviewing laboratory testing records of Malu Angelo at the request of Drs. Diaz/Cami for the clarification of platelet antibody testing. Indication / Diagnosis: 28 y.o. delivered 11/27/18 by for nonreassuring status in the setting of growth restriction and gestational hypertension. The baby was found to have severe thrombocytopenia requiring transfusions. In house testing positive, confirmatory send out testing sent. Results for MALU ANGELO ( ) as of 01/07/2019 15:18 Ref. Range 12/02/2018 17:40 HLA/Plt Screen Interp Unknown Positive Assessment and Plan: No evidence of anti-platelet antibodies. 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 HPA-15 testing pending and will be sent as follow-up report. This is a very uncommon cause of NAIT. Recommendation: No current evidence supportive of NAIT. Testing confirmed HLA antibodies which can cause thrombocytopenia but typically not associated with intracranial hemorrhage. I would not recommend any additional testing at this time. Please feel free to contact me if you have additional questions. JANESSA VILLARREAL MD 01/07/2019 documented in this encounter Plan of Treatment Not on file documented as of this encounter Visit Diagnoses Not on filedocumented in this encounter Care Teams Natural Resource Officer Relationship Specialty Start Date End Date Susan Alvarez APRN [address] [place] [address] PCP - General Family Medicine 07/16/18 11/10/19 documented as of this encounter
--- OUTSIDE RECORDS SUMMARY | 2024-09-24 13:44 | XMS_ITS | Encounter Summary ---
Author Organization [facility] [place] [address] Care Team Providers Care Supplier Specialist Name Role Phone Susan Alvarez APRN Primary Care Provider + Encounter Details Date Type Department Care Team (Late st Contact Info) Description 12/02/2018 Orders Only Obstetrics [place] [address] Moira Andres MD [facility] DR OBSTETRICS [place] [address] thrombocytopenia, third trimester, fetus 1 Social History Tobacco Use Types Packs/Day Years [...] documented as of this encounter Results * HLA Platelet Antibody Screen (12/02/2018 5:40 PM EST) HLA Platelet Antibody Screen Positive [facility] Blood specimen (specimen) 12/02/2018 5:40 PM EST 12/02/2018 5:52 PM EST Narrative Resulting Agency Comment Spec In Lab Moira Andres MD BLOOD BANK LAB ORDER LILO [facility] [place] [place] [address] documented in this encounter Visit Diagnoses Diagnosis thrombocytopenia, third trimester, fetus 1 documented in this encounter Care Teams Supplier Specialist Relationship Specialty Start Date End Date Susan Alvarez APRN [address] [place] [address] PCP - General Family Medicine 07/16/18 11/10/19 documented as of this encounter
--- OUTSIDE RECORDS SUMMARY | 2024-09-24 13:44 | XMS_ITS | Encounter Summary ---
[facility] Organization [facility] [place] [address] Care Team Providers Care Netbackup Administrator Name Role Phone Susan Alvarez APRN Primary Care Provider + Encounter Details Date Type Department Care Team (Latest Contact Info) Description 12/04/2018 Encounter Social History Tobacco Use Types Packs/Day [...] this encounter Miscellaneous Notes * Note - Ly Mann RN - 12/04/2018 5:35 PM EST This note was copied from a baby's chart. Services note: S/O Met with mom Asha as she was offering Carl kangaroo care this afternoon. She reports pumpingis going well and she has been able to express about 100 ml per pumping session. She reports she usually pumps about every three hours but last night did sleep through her alarm and had a five hour interval between sessions. Discussed the goal of 8 sessions per day so if she did have one longer stretch at night she could make it up by pumping on a more frequent interval such as every 2 hours during the day for a few sessions if she wished. Discussed management of bottles for pumping. Encouragedher to just pump put a lid on her bottles and label her milk from each session at this time. After Carl is home she may use bottles to pump into and wash and sterilize them with her pump kit parts if she wishes. Reviewed progression of infant from skin to skin, to nuzzling at breast, to then latching on a bit and sustaining suckling to full feeds as he approaches his due date. Discussedif he tries to work his way over to her breast with skin to skin care and try nuzzling a bit that would be fine. Discussed it may be best to have her pump prior to any latching efforts to have a smaller volume of milk for him to manage with his initial feedings. A Mom doing well with pumping, baby almost 32 weeks gestation, now with NG feeding tube. P RECOMMENDATIONS: Pump at least 8 times per 24 hours for fifteen minutes per session and record in pumping log provided Breast massage and hand expression before and during pumping Brief heat prior to pumping [place] oil to nipples prior to pumping Frequent and prolonged maternal- skin to skin contact If baby Carl begins to show interest in nuzzling at breast, mom may want to pump prior to kangaroo care to allow him to try some breast visits and practice latching sessions on an empty breast initially. Close support and follow up Ly Mann RN IBCLC [facility] documented in this encounter Plan of Treatment Not on file documented as of this encounter Visit Diagnoses Not on filedocumented in this encounter Care Teams Netbackup Administrator Relationship Specialty Start Date End Date Susan Alvarez APRN [address] [place] [address] PCP - General Family Medicine 07/16/18 11/10/19 documented as of this encounter
--- OUTSIDE RECORDS SUMMARY | 2024-09-24 13:44 | XMS_ITS | Encounter Summary ---
Author Organization [facility] [place] [address] Care Team Providers Care Air Twister Winder Name Role Phone Susan Alvarez APRN Primary Care Provider + Encounter Details Date Type Department Care Team (Latest Contact Info) Description 12/25/2018 Encounter Social History Tobacco Use Types Packs/Day [...] * Note - Kami Woody RN - 12/25/2018 3:00 PM EST This note was copied from a baby's chart. INFANT ORAL MOTOR EXAMINATION Infant started taking bottles yesterday and is drinking over half of the volumes at times. Mom states he just does not sustain the latch. He is now 35 6/7 gestation Oral Motor Examination/Function: Mouth: Small Jaw: Normal Receding Lips: Passively pulled in Gums: Normal Tongue: Normal resting position Frenulum: Not assessed Palate: Not assessed Observation: Position: Cross Cradle right Rooting: Depressed, Flat, Needed to stimulate him with drops of EBM to get him to open his mouth Attachment: Adequate With XS contact nipple shield. Needed a couple of latches with Mom repositioning her hands in different ways to keep him on deeply and not tonguing out the shield. When she held her breast in a U hold and held back fullness of breast from pushing on chin, he was able to get on more deeply and she could feel the tug rather than a pinch Milk Ejection Reflex: After attachment milk in shield Swallow: Normal/Coordination Suck:Swallow Ratio: not assessed this feed Sucking Burst Pattern: immature, inconsistent Maternal Considerations : Mom has a great supply of milk but has short shafted, rather large nipples/breasts. It is very important for her to get the shield on well so that it does not fall of while attempting to latch him On-going Concerns: Premature post menstrual age: 36 6/7 but tiny Risk for feeding difficulties Monitor growth and nutrition closely Recommendations: Breast visits and practice as cues for readiness Frequent skin to skin contact and Kangaroo-Mother care Breastfeed as cues for readiness Pump frequently at least 8-10 times per 24 hours after feeds and record in pumping log Continue to follow closely Kami Woody RN, IBCLC [facility] Services documented in this encounter Plan of Treatment Not on file documented as of this encounter Visit Diagnoses Not on filedocumented in this encounter Care Teams Air Twister Winder Relationship Specialty Start Date End Date Susan Alvarez APRN [address] [place] [address] PCP - General Family Medicine 07/16/18 11/10/19 documented as of this encounter
--- OUTSIDE RECORDS SUMMARY | 2024-09-24 13:44 | XMS_ITS | Encounter Summary ---
Author Organization [facility] Address [facility] [place] [address] Care Team Providers Care Plumber Helper Name Role Phone Susan Alvarez APRN Primary Care Provider + Encounter Details Date Type Department Care Team (Latest Contact Info) Description 12/01/2018 2:10 PM EST - 12/01/2018 11:59 PM [facility] En[facility] [address] [place] [id number] Anya Diaz MD [facility] OBSTETRICS [place] [address] Discharge Disposition: Home Social History Tobacco Use [...] on filedocumented in this encounter Care Teams Plumber Helper Relationship Specialty Start Date End Date Susan Alvarez APRN [address] [place] [address] PCP - General Family Medicine 07/16/18 11/10/19 documented as of this encounter
--- OUTSIDE RECORDS SUMMARY | 2024-09-24 13:44 | XMS_ITS | Encounter Summary ---
[facility] [place] [address] Care Team Providers Care Educational Paraprofessional Name Role Phone Susan Alvarez APRN Primary Care Provider + Encounter Details Date Type Department Care Team (Latest Contact Info) Description 01/03/2019 Encounter Social History Tobacco Use Types Packs/Day [...] * Note - Ly Mann RN - 01/03/2019 7:21 PM EST This note was copied from a baby's chart. Breast feeding observation ICN Birthweight 1.13 kg Current Weight 2.115 kg Oral Motor Examination/Function: Mouth: Normal Small Jaw: Normal Receding Lips: Thin, thin cheek structure normally observed in . Gums: Normal Tongue: Normal resting position can extend to lower lip and gum line Frenulum: Not assessed Palate: Not assessed Observation: Position: R breast football hold Rooting: Normal Attachment: Adequate with somewhat narrow latch angle, using extra small nipple shield to support latch Milk Ejection Reflex: After attachment Swallow: Normal/Coordination Suck:Swallow Ratio: 1:1 for a few suckles, then spaced out to a more intermittent 5-6:1 Sucking Burst Pattern: Immature pattern. Pre and post nursing test weights revealed weight of 2165 grams pre feeding and 2170 grams post feeding for transfer of 5 grams or 5 ml feeding this observation. Tammy did appear to be actively engaged in suckling for much of the session. Maternal Considerations : Great milk supply, pumping 120-160 milliliters per pump session. Hoping baby will begin to nurse with more vigor and begin to transfer larger milk volumes as she is staying for night time and day time feedings in bed space 10. On-going Concerns: Premature formerly 31-6/7 weeks, post menstrual age: 37-1/7 weeks today Risk for feeding difficulties related to prematurity requiring intensive care nursery stay Development of breast feeding stamina to enable him to transfer adequate milk volumes at nursing efforts Monitor growth and nutrition closely Recommendations: Breast visits and practice as infant cues for readiness Frequent skin to skin contact and Kangaroo-Mother care Breastfeed as infant cues for readiness, but at least every 2-3 hours, awaken infant as needed Pump frequently at least 8 times per 24 hours for fifteen minutes per session after feeds and record in pumping log Offer supplements per intensive care nursery recommendations after nursing sessions. Baby transferred 5 ml with pre and post feeding weight check 01/03/2019, would advise checking pre and post feeding weights again in a day or to track his progress. At this time would recommend we hold off on bottle supplements until Carl can demonstrate better milk transfer and stamina at breast feeding sessions Keep a Feeding Log the first few weeks: record times/duration, pumping volumes, any supplement given, and stools/wet diapers; this journal can be helpful to review with Carl's care provider team. will continue to follow. Ly Mann RN, IBCLC [facility] Services documented in this encounter Plan of Treatment Not on file documented as of this encounter Visit Diagnoses Not on filedocumented in this encounter Care Teams Educational Paraprofessional Relationship Specialty Start Date End Date Susan Alvarez APRN [address] [place] [address] PCP - General Family Medicine 07/16/18 11/10/19 documented as of this encounter
--- OUTSIDE RECORDS SUMMARY | 2024-09-24 13:44 | XMS_ITS | Encounter Summary ---
[place] [address] Care Team Providers Care Operations Administrative Assistant Name Role Phone Susan Alvarez APRN Primary Care Provider + Encounter Details Date Type Department Care Team (Latest Contact Info) Description 12/02/2018 5:25 PM EST Laboratory Appointment Lab [address] [place] [id number] thrombocytopenia, third trimester, fetus 1 Social History [...] Procedure Name Priority Date/Time Associated Diagnosis Comments [facility] SENDOUT Routine 12/02/2018 5:40 PM EST HLA PLATELET ANTIBODY SCREEN Routine 12/02/2018 5:40 PM EST thrombocytopenia, third trimester, fetus 1 documented in this encounter Results * [facility] [place] (12/02/2018 5:40 PM EST) [facility] See Note [facility] Comment: The ordered test is: HPA-1 (ALEX-1) Typing Performed by: Marshallese Anton ? [place],MA See Scanned Report. Blood specimen (specimen) Venous Draw / Unknown 12/02/2018 5:40 PM EST 12/12/2018 12:44 PM EST Janessa Bales MD LAB SEND OUT ORDERAB LES Performing Organization Address City/[facility]/ZIP Co de Phone Number [facility] [place] [address] * HLA Platelet Antibody Screen (12/02/2018 5:40 PM EST) HLA Platelet Antibody Screen Positive [facility] Blood specimen (specimen) 12/02/2018 5:40 PM EST 12/02/2018 5:52 PM EST Narrative Resulting Agency Comment Spec In Lab Moira Andres MD BLOOD BANK LAB ORDER LILO Performing Organization Address City/[facility] Co de Phone Number [facility] [place] [address] documented in this encounter Visit Diagnoses Diagnosis thrombocytopenia, third trimester, fetus 1 documented in this encounter Care Teams Operations Administrative Assistant Relationship Specialty Start Date End Date Susan Alvarez APRN [address] [place] [address] PCP - General Family Medicine 07/16/18 11/10/19 documented as of this encounter
--- OUTSIDE RECORDS SUMMARY | 2024-09-24 13:44 | XMS_ITS | Encounter Summary ---
Author Organization [facility] [place] [address] Care Team Providers Care Fire Production Operator Name Role Phone Susan Alvarez APRN Primary Care Provider + Reason for Visit * Reason Comments Care Incision ck Encounter Details Date Type Department Care Team (Late st Contact Info) Description 01/02/2019 3:00 PM EST Office Visit Obstetrics [place] [phone] Emanuel Lawton MD [facility] OBSTETRICS [place] [address] Irritant contact dermatitis due to drug in contact with skin Social History Tobacco Use Types Packs/Day Years [...] Sign Reading Time Taken Comments Blood Pressure 113/64 01/02/2019 2:58 PM EST Pulse 68 01/02/2019 2:58 PM EST Temperature 36.7 ??C (98.1 ??F) 01/02/2019 2:58 PM ES T Respiratory Rate - - Oxygen Saturation 100% 01/02/2019 2:58 PM EST Inhaled Oxygen Concentration - - Weight 61.6 kg (135 lb 12.8 oz) 01/02/2019 2:58 PM EST Height - - Body Mass Index 23.31 12/20/2018 8:57 AM EST documented in this encounter Progress Notes * Yakelin Cash MD - 01/02/2019 3:00 PM EST Seen today for wound check. She is approx 5 weeks s/p pLTCS for NRFHT at 31w6d. C/S incision covered with Dermabond. States she has had no problems until earlier this week when the Dermabond started to peel off. It became very itchy and red. She denies any fevers, chills, drainage. Incision notable for erythematous maculopapular rash surrounding her pfannenstiel incision with a few red papules above the incision. Excoriations also present. No induration, fluctuance, warmth or drainage assoc with incision. Remaining dried Dermabond peeled off incision. Incision itself is well approximated and skin has healed A/P Contact dermatitis from Dermabond Advised keeping incision clean and dry Apply topical hydrocortisone 1% cream thin layer once daily up to 7 days May use topical Benadryl or take po Claritin for itching No evidence for wound infection. RTC for visit Pt seen with Dr. Lawton, attending. YAKELIN CASH MD PGY-4 01/02/2019 * Emanuel Lawton MD - 01/02/2019 3:00 PM EST BP 113/64 Pulse 68 Temp 36.7 ??C (98.1 ??F) (Oral) Wt 61.6 kg (135 lb 12.8 oz) SpO2 100% ? Yes BMI 23.31 kg/m?? The case was discussed at the time of the visit or immediately after the visit. The assessment and plan were formulated in discussion with me and I agree with them as documented. I have reviewed the history, physical exam, assessment and plan with the resident. Major issues discussed today: Local allergic reaction around incision. No evidence to suggest infection. Plan: Topical benadryl, topical hydrocortisone. RTC in 1 -2 weeks for f/u. E ALLEY LAWTON MD documented in this encounter Plan of Treatment Not on file documented as of this encounter Visit Diagnoses Diagnosis Irritant contact dermatitis due to drug in contact with skin Contact dermatitis and other eczema due to drugs and medicines in contact with skin documented in this encounter Care Teams Fire Production Operator Relationship Specialty Start Date End Date Susan Alvarez APRN [address] [place] [address] PCP - General Family Medicine 07/16/18 11/10/19 documented as of this encounter
--- OUTSIDE RECORDS SUMMARY | 2024-09-24 13:45 | XMS_ITS | Encounter Summary ---
Author Organization [facility] Address [address] [place] [address] Care Team Providers Care Clinical Application Manager Name Role Phone Unknown, Provider Primary Care Provider Elena ha Encounter Details Date Type Department Care Team (Late st Contact Info) Description 01/21/2019 Results Only [facility] [phone] Benedicto [address] [address] Social History Tobacco Use Types Packs/Day Years Used Date Smoking Tobacco: Never Assessed Comments Unknown Sex and Gender Information Value Date Recorded Sex Assigned at Not on file Legal Sex Female 10:26 EDT Gender Identity Not on file Sexual Orientation Not on file documented as of this encounter Plan of Treatment Not on file documented as of this encounter Procedures Procedure Name Priority Date/Time Associated Diagnosis Comments PAP TEST- RESULT ONLY Routine 01/21/2019 0:00 EDT documented in this encounter Results * PAP TEST- RESULT ONLY (01/21/2019 0:00 EDT) Pathology Report: CYTOPATHOLOGY REPORT Reports generated via electronic interface contain original data; however they are lacking the format of the original report. Caution should be taken when reading/interpreti ng unformatted reports. Name: ? MALU ANGELO ? Accession #: ? [id number] ? : ? 1990 (Age: 28) ??F ?Collect Date: ? 01/21/2019 ? Location: ? [facility] ? Receive Date: ? 01/22/2019 ? Provider: BENEDICTO SINGH [facility] Copy to: AIMEE YANG SALES TECHNICIAN-BC ? Final Report SPECIMEN ADEQUACY ? Satisfactory for Evaluation - transformation zone component present GENERAL CATEGORIZATION ? Negative for Intraepithelial Lesion or Malignancy INTERPRETATION ? Reactive cellular changes associated with inflammation present (includes repair). Menstrual/Pregnanc y Status: ??Post Specimen/Source: ??Pap Test, Cervix/Endocervix, ThinPrep Imaging System with manual evaluation Document reviewed and electronically signed by: ? JENNIFER TORRES MD ? Report ??Date: 01/24/2019 08:48 HPV with Pap Test ? Date Ordered: ? 01/24/2019 ? Status: ?? Signed Out ?Date Complete: ? 01/27/2019 ? By: ??System Interface ? Date Reported: ? 01/27/2019 ? Interpretation RESULT: Negative for HPV. No E6 or E7 mRNA is detected from HPV types 16,18,31,33,35, 39,45,51,52,56,58, 59,66, and 68 by continuous miner operator mediated amplification. Comments Document reviewed and electronically signed by: ? System Interface ? Report date: 01/27/2019 By the signature above, the attending physician certifies that he/she has personally conducted a gross and/or microscopic examination of the described specimens and rendered or confirmed the above diagnosis. End of Report [facility] 01/21/2019 01/22/2019 us Benedicto Singh [facility] ORDERABLES Final Resul t [facility] [address] [place] [address] documented in this encounter Visit Diagnoses Not on filedocumented in this encounter Care Teams Clinical Application Manager Relationship Specialty Start Date End Date Unknown, Provider, PCP - General 01/22/19 08/08/20 documented as of this encounter
--- OUTSIDE RECORDS SUMMARY | 2024-09-24 13:45 | XMS_ITS | Encounter Summary ---
Author Organization [facility] Address [address] [place] [address] Care Team Providers Care Roller Operator Name Role Phone Unknown, Provider Primary Care Provider Ana Silva Primary Care Provider [phone] Encounter Details Date Type Department Care Team ([facility] Contact Info) Description 10/17/2019 Lab Requisition [facility] Pathology & Laboratory Medicine - [address] [address] Unknown, Provider, Social History Tobacco Use Types Packs/Day Years [...] Procedure Name Priority Date/Time Associated Diagnosis Comments THYROID ANTIBODIES Routine 10/16/2019 9:46 EST documented in this encounter Results * (ABNORMAL) THYROID ANTIBODIES (10/16/2019 9:46 EST) Anti-Thyroglobulin 230.0(H) <=60 U/mL 2018 12:28 EST [facility] Thyroperoxidase Ab >1,300(H) <=60 U/mL 2018 12:28 EST [facility] Blood VENOUS BLOOD / Unknown 10/16/2019 9:46 EST 10/17/2019 20:22 EST us Provider Unknown CHEMISTRY & BLOOD GAS ORDERA BLES Final Result [facility] [address] [place] [address] documented in this encounter Visit Diagnoses Not on filedocumented in this encounter Care Teams Roller Operator Relationship Specialty Start Date End Date Unknown, Provider, PCP - General 01/22/19 08/08/20 Ana Cortes FNP [address] [phone] PCP - General 08/09/20 documented as of this encounter
--- OUTSIDE RECORDS SUMMARY | 2024-09-24 13:45 | XMS_ITS | Encounter Summary ---
Author Organization [facility] Address [address] [place] [address] Care Team Providers Care Breaker Operator Name Role Phone Ana Cortes CHAS Primary Care Provider [phone] Encounter Details Date Type Department Care Team (Late st Contact Info) Description 07/24/2023 Lab Requisition [facility] Pathology & Laboratory Medicine - [facility] [address] [place] [address] Rosy Quick, GIFTS OFFICER [address] [place] [address] Encounter for other general examination Social History Tobacco Use Types Packs/Day Years Used Date Smoking Tobacco: Never Assessed Interpersonal Safety Answer Date Record ed Physically Hurt Never 08/23/2020 Verbally Threaten Not on file 08/23/2020 Comments Unknown Sex and Gender Information Value Date Recorded Sex Assigned at Not on file Legal Sex Female 10:26 EDT Gender Identity Not on file Sexual Orientation Not on file documented as of this encounter Plan of Treatment Not on file documented as of this encounter Procedures Procedure Name Priority Date/Time Associated Diagnosis Comments PAP TEST Today 07/23/2023 9:10 EDT Encounter for other general examination HPV DNA DETECTION WITH GENOTYPING, PCR Today 07/23/2023 9:10 EDT Encounter for other general examination documented in this encounter Results * HUMAN PAPILLOMAVIRUS (HPV) DETECTION-HIGH RISK TYPES (07/23/2023 9:10 EDT) HPV other High Risk types, PCR Negative Negative 08/02/2023 19:14 EDT [facility] Comment:No E6 or E7 mRNA is detected from HPV types 16,18,31,33,35,39,45,51,52,56,58,59,66, and 68 by wool hanker mediated amplification. Pap Test CERVIX UTERI STRUCTURE / Unknown 07/23/2023 9:10 EDT 08/01/2023 14:33 EDT us Rosy Quick GIFTS OFFICER MICROBIOLOGY - GENERAL OR DERABLES Final Result [facility] [address] [place] [address] * PAP TEST (07/23/2023 9:10 EDT) Specimens A. Cervix and/or Endocervix , ThinPrep Imaging System with Manual Evaluation 08/02/2023 19:14 T [facility] Specimen Adequacy Satisfactory for Evaluation - transformation zone component present 08/02/2023 19:14 [facility] General Categorization Negative for intraepithelial lesion or malignancy 08/02/2023 19:14 T [facility] Attestation . 08/02/2023 19:14 [facility] at [address] Clinical History See below 08/02/20 19:14 [facility] HPV The result for the Human Papillomavirus (HPV) Detection-High Risk Types is Negative. No E6 or E7 mRNA is detected from HPV types 16,18,31,33,35,39 ,45,51,52,56,58,5 9,66, and 68 by wool hanker mediated amplification.Holly ting was performed on specimen [id number] and was resulted on 08/02/2023 1616 EDT by PARAM, LAB INSTRUMENT RESULTS IN 08/02/2023 19:14 T [facility] Performing Lab [facility] 08/02/2023 19:14 T [facility] Scanned Images 08/02/2023 19:14 T [facility] Pap Test CERVIX UTERI STRUCTURE / Unknown 07/23/2023 9:10 EDT 07/24/2023 10:17 EDT us Rosy Quick APRN PATHOLOGY ORDERABLES Swathi bogdan Result [facility] [address] [place] [address] documented in this encounter Visit Diagnoses Diagnosis Encounter for other general examination documented in this encounter Care Teams Breaker Operator Relationship Specialty Start Date End Date Ana Cortes FNP [address] [address] PCP - General 08/09/20 documented as of this encounter
--- OUTSIDE RECORDS SUMMARY | 2024-09-24 13:45 | XMS_ITS | Encounter Summary ---
Author Organization [facility] Address [address] [place] [address] Care Team Providers Care Security Analyst Name Role Phone Ana Cortes CHAS Primary Care Provider [phone] Encounter Details Date Type Department Care Team (Late st Contact Info) Description 05/06/2024 Lab Requisition [facility] Pathology & Laboratory Medicine - [address] [address] Harmeet Zimmerman MD [address] [place] [address] [phone] Disorder of the skin and subcutaneous tissue, unspecified Social History Tobacco Use Types Packs/Day Years [...] Procedure Name Priority Date/Time Associated Diagnosis Comments SURGICAL PATHOLOGY Today 05/06/2024 7: 45 EDT Disorder of the skin and subcutaneous tissue, unspecified documented in this encounter Results * SURGICAL PATHOLOGY (05/06/2024 7:45 EDT) Note to Patient The following pathology results have been interpreted by your pathologist and may be available to you before your health provider has had the opportunity to review them. Please allow time for your provider to receive these results and explore management options, if applicable. 05/08/2024 10:42 EDT [facility] Final Diagnosis A. SKIN OF CHIN, LEFT, EXCISION: - Melanocytic nevus, intradermal type. - Margins negative for nevus. 05/08/2024 10:42 [facility] Attestation By the signature below, the attending physician certifies that they have 1) personally conducted a gross and/or microscopic examination of the described specimen(s), and/or personally interpreted the results of laboratory testing of the described specimen(s), and 2) personally rendered or confirmed the above diagnosis. 05/08/2024 10:42 [facility] at 1042 Microscopic Description Sections are of a papule with mild epidermal hyperplasia and hyperkeratosis. There is a proliferation of melanocytes within the dermis. The proliferation consists of nests, cords, and strands that diminish in size with descent into the dermis. The melanocytes are slightly enlarged but generally have round-oval nuclei and a moderate amount of cytoplasm. The melanocytes show operations administrative assistant maturation. 05/08/2024 10:42 [facility] Clinical History Skin mass; clinical diagnosis code: L98.9 05/08/2024 10:42 [facility] Gross Description A. Received in formalin labelled with proper patient identification (initials G, L) and L chin is an unoriented elliptical excision of penaloza hair-bearing skin (1.0 x 0.6 cm and is excised to a depth of 0.2 cm). There is a central irregular penaloza papule that measures 0.6 x 0.6 cm. The margins are inked blue. The specimen is serially sectioned and entirely submitted as A1 3 central sections and A2 2 tips, reverse en face. Moira Brown 05/07/2024 8:42 05/08/2024 10:42 [facility] Performing Lab [facility] 05/08/2024 10:42 [facility] Scanned Images 05/08/2024 10:42 [facility] Tissue SPECIMEN FROM SKIN / Unknown 05/06/2024 7:45 EDT 05/06/2024 20:16 EDT us Harmeet Zimmerman MD PATHOLOGY ORDERABLES Final Resul t [facility] [address] [place] [address] documented in this encounter Visit Diagnoses Diagnosis Disorder of the skin and subcutaneous tissue, unspecified documented in this encounter Care Teams Security Analyst Relationship Specialty Start Date End Date Ana Cortes FNP [address] [place] [address] [place] [phone] PCP - General 08/09/20 documented as of this encounter
--- OUTSIDE RECORDS SUMMARY | 2024-09-24 13:45 | XMS_ITS | Clinical Summary ---
Author Organization [facility] Address [address] [place] [address] Care Team Providers Care Certified Composites Technician Name Role Phone Ana Cortes BRICK MACHINE OPERATOR Primary Care Provider [phone] Social History Tobacco Use Types Packs/Day Years Used Date Smoking Tobacco: Never Assessed Interpersonal Safety Answer Date Record ed Physically Hurt Never 08/23/2020 Verbally Threaten Not on file 08/23/2020 Comments Unknown Sex and Gender Information Value Date Recorded Sex Assigned at Not on file Legal Sex Female 10:26 EDT Gender Identity Not on file Sexual Orientation Not on file Plan of Treatment Health Maintenance Due Date Last Done Comments Hepatitis C Screen 1988 Hepatitis B Vaccine (1 of 3 - 19+ 3-dose series) 02/19 COVID-19 Vaccine ( season) 2024 Insurance [facility] Care Teams Certified Composites Technician Relationship Specialty Start Date End Date Ana Cortes FNP [address] [place] [address] [address] [place] [address] PCP - General 08/09/20
--- OUTSIDE RECORDS SUMMARY | 2024-09-24 13:45 | XMS_ITS | Encounter Summary ---
Author Organization [facility] Address [address] [place] [address] Care Team Providers Care Physical Chemist Name Role Phone Ana Cortes CHAS Primary Care Provider [phone] Encounter Details Date Type Department Care Team (Late st Contact Info) Description 12/21/2022 Lab Requisition [facility] Pathology & Laboratory Medicine - [address] [id number] Outr Resulting Lab, Provider Social History Tobacco Use Types Packs/Day Years [...] Procedure Name Priority Date/Time Associated Diagnosis Comments T3 FREE Routine 12/20/2022 12:20 EST documented in this encounter Results * T3 FREE (12/20/2022 12:20 EST) T3, Free 4.1 2.8 - 5.3 pg/mL 12/21/2022 18:20 EST [facility] Blood VENOUS BLOOD / Unknown 12/20/2022 12:20 EST 12/21/2022 17:45 EST us Provider Outr Resulting Lab CHEMISTRY & BLOOD GA S ORDERABLES Final Result [facility] [address] [place] [address] documented in this encounter Visit Diagnoses Not on filedocumented in this encounter Care Teams Physical Chemist Relationship Specialty Start Date End Date Ana Cortes FNP [address] [phone] PCP - General 08/09/20 documented as of this encounter
--- OUTSIDE RECORDS SUMMARY | 2024-09-24 13:45 | XMS_ITS | Referral Summary ---
Author Organization [facility] Address [address] [place] [address] Care Team Providers Care Road Train Driver Name Role Phone Ana Cortes COMMUNITY SERVICE DIRECTOR Primary Care Provider [phone] Social History Tobacco Use Types Packs/Day Years Used Date Smoking Tobacco: Never Assessed Interpersonal Safety Answer Date Record ed Physically Hurt Never 08/23/2020 Verbally Threaten Not on file 08/23/2020 Comments Unknown Sex and Gender Information Value Date Recorded Sex Assigned at Not on file Legal Sex Female 10:26 EDT Gender Identity Not on file Sexual Orientation Not on file Plan of Treatment Not on file Insurance [facility] Care Teams Road Train Driver Relationship Specialty Start Date End Date Ana Cortes FNP [address] [place] [phone] PCP - General 08/09/20
--- OUTSIDE RECORDS SUMMARY | 2024-09-24 13:45 | XMS_ITS | Encounter Summary ---
Author Organization [facility] Address [address] [place] [address] Care Team Providers Care Car Starter Name Role Phone Ana Cortes Primary Care Provider [phone] Encounter Details Date Type Department Care Team (Late st Contact Info) Description 08/12/2020 Lab Requisition [facility] Pathology & Laboratory Medicine - [facility] [address] [place] [address] Ana Cortes FNP [address] [facility] [address] [place] [address] Other hypertrophic disorders of the skin; Melanocytic nevi, unspecified Social History Tobacco Use Types Packs/Day [...] Date/Time Associated Diagnosis Comments SURGICAL PATHOLOGY Today 08/11/2020 8: 45 EDT Other hypertrophic disorders of the skin documented in this encounter Results * SURGICAL PATHOLOGY (08/11/2020 8:45 EDT) Final Diagnosis A. SKIN OF ARM, RIGHT MEDIAL UPPER, SHAVE BIOPSY: - Melanocytic nevus, predominantly intradermal type. - Lesion extends to biopsy base. B. SKIN OF ABDOMEN, SHAVE BIOPSY: - Melanocytic nevus, predominantly intradermal type. - Lesion extends to biopsy base. 08/13/2020 9:49 EDT [facility] Attestation By the signature below, the attending physician certifies that they have 1) personally conducted a gross and/or microscopic examination of the described specimen(s), and/or personally interpreted the results of laboratory testing of the described specimen(s), and 2) personally rendered or confirmed the above diagnosis. 08/13/2020 9:49 [facility] at 0948 Clinical History A. Skin tag right medial aspect of upper arm; B. Nevus, atypical abdomen dark brown nodule, there for life unchanged 08/13/2020 9:49 T [facility] Gross Description A. Received in formalin labelled with proper patient identification (initials G, L) and 1 is a shave biopsy of a penaloza fleshy dome-shaped papule (0.4 x 0.3 x 0.3 cm). The specimen is inked and submitted in A1. B. Received in formalin labelled with proper patient identification (initials G, L) and 2 is a shave biopsy of a dome-shaped brown wrinkled papule (0.5 x 0.5 x 0.5 cm). The specimen is inked, bisected and submitted in B1. ISSA PEPPER(ASCP) 17:17 08/13/2020 9:49 T [facility] Performing Lab [facility] 08/13/2020 9:49 T [facility] Scanned Images 08/13/2020 9:49 [facility] Tissue TISSUE SPECIMEN FROM SKIN / Unknown 08/11/2020 8:45 EDT 08/12/2020 17:04 EDT Tissue specimen (specimen) SPECIMEN FROM SKIN / Unknown 08/11/2020 8:45 EDT 08/12/2020 17:04 EDT Ana DOHERTY PATHOLOGY ORDERABLES Final Resul t [facility] [address] [place] [address] documented in this encounter Visit Diagnoses Diagnosis Other hypertrophic disorders of the skin Melanocytic nevi, unspecified documented in this encounter Care Teams Car Starter Relationship Specialty Start Date End Date Ana Cortes FNP [address] [phone] PCP - General 08/09/20 documented as of this encounter
--- NOTE | 2024-09-24 14:11 | DI.RAD_ITS ---
Exam(s) XR CHEST 2V PA LATERAL EXAM: XR CHEST 2V PA LATERAL CLINICAL HISTORY: COUGH, R05.9 TECHNIQUE: 2D digital imaging was performed. Two views. COMPARISON: No exams were available for comparison FINDINGS: HEART: Normal size. Aorta: Not dilated. PULMONARY VASCULATURE: Normal. MEDIASTINUM: Unremarkable. LUNGS: Patchy infiltrate noted in the left perihilar region. The right lung appears clear. PLEURAL SPACE: No pleural effusion or pneumothorax. BONE:Unremarkable for age. SOFT TISSUES: Unremarkable. IMPRESSION: Left perihilar infiltrate. DATA REPOSITORY: RADIATION DOSE DELIVERED:
== END 2024-09-24 13:59 ==
PROVIDERS: PCP Nurse Practitioner Family; Visit Provider Physician Assistant Medical
DX: R91.8 Other nonspecific abnormal finding of lung field (principal)
CPT/HCPCS: 71046

== ENCOUNTER 2024-12-26 14:57 | Outpatient (REF) | payer BC, SELFPAY ==
[2024-12-26 15:41] LABS: HCT 38.1 % (36.0-46.0); HGB 12.9 g/dL (11.2-15.7); MCH 30.2 pg (27.0-33.0); MCHC 33.9 % (32.0-36.0); MCV 89 fL (80-95); MPV 10.3 fL (8.0-11.0); Platelet Count 302 10^3/uL (130-400); RBC 4.27 10^6/uL (3.93-5.22); RDW-SD 38.7 fL; WBC 4.28 10^3/uL (4.4-10.8)
[2024-12-26 17:36] LABS: ALT 17 U/L (14-59); AST 18 U/L (15-37); Albumin 4.1 g/dL (3.4-5.0); Alkaline Phosphatase 47 U/L (46-116); Anion Gap 8.8 mmol/L (3-11); BUN 9 mg/dL (7-18); Bilirubin, Total 0.34 mg/dL (0.2-1.0); CO2 31.2 mmol/L (21.0-32.0); CREATININE 0.7 mg/dL (0.55-1.02); Calcium 9.2 mg/dL (8.5-10.1); Calculated LDL 102 mg/dL (<100); Chloride 104 mmol/L (98-107); Cholesterol 177 mg/dL (<200); Estimated GFR 114.88 (mL/min/1.73m2); Glucose 83 mg/dL (74-106); HDL Cholesterol 66 mg/dL (40-60); Potassium 3.9 mmol/L (3.5-5.1); Sodium 144 mmol/L (136-145); TSH (W/Ref FT4) 1.74 uIU/mL (0.36-3.74); Total Protein 7.9 g/dL (6.4-8.2); Triglyceride 46 mg/dL (<150)
== END 2024-12-26 14:58 | disposition home or self-care (01) ==
LOC: NCHCN 14:57
PROVIDERS: PCP Nurse Practitioner Family; Visit Provider Nurse Practitioner Family
DX: Z00.00 Encounter for general adult medical examination without abnormal findings (principal); E03.9 Hypothyroidism, unspecified
CPT/HCPCS: 80053; 80061; 85027; 84443

== ENCOUNTER 2025-01-09 20:53 | Outpatient (REF) | payer BC, SELFPAY ==
[2025-01-09 21:16] LABS: Bacteria Negative HPF (Negative); Crystals Negative HPF (Negative); Epithelial Cells Rare HPF (Negative); RBC 0-2 HPF (0-2)
[2025-01-09 21:17] LABS: C & S Indicated? C&S Done As Ordered; Mucus Negative (Negative)
== END 2025-01-09 20:54 | disposition home or self-care (01) ==
LOC: LBN 20:53
PROVIDERS: PCP Nurse Practitioner Family; Visit Provider Physician Assistant Medical
DX: R30.0 Dysuria (principal)
CPT/HCPCS: 81015; 87086